=== PATIENT | male | born 1960 | race Caucasian/White ===

== ENCOUNTER 2017-11-26 22:19 | Emergency (ER) | payer OTHER ==
[~2017-11-26] VITALS: Ht 175.3 cm; Wt 97.5 kg
[~2017-11-26 22:19] MED LIST: ACET325; ALBU90OI INH; ALBU90OI6 INH; ALBU90OI61 INH; AMIT25 PO; AMIT50; AMLO5; ATOR40TA; AZIT250 PO; BECL40OI INH; Bactrim Ds Tab1 EACH PO; CEFP200 PO; CEPH500 PO; CIPR500 PO; DOXY100T53 PO; DULO30; DULO60 PO; ENAL20 PO; ERYT.5TO LEFTEYE; ESCI20 PO; FLUO20 PO; FLUSAL2505 IH; GABA100 PO; GUAI600ER PO; HYDACE5; HYDACE5 PO; HYDACE5325 PO; HYDACE7.5 PO; HYDR-86 PO; IBUP200; IBUP200 PO; IBUP800 PO; INSUASPI SC; INSULANI SC; INSULANPEN SC; LOVA20 PO; MAGCHL64ER; METF500 PO; METH10; METO25 PO; METO25ER; METO50; METO50ER; MULTCH; NAPR250; NAPR500 PO; NAPR550 PO; NITR.4SL SL; NORCO; NORT25 PO; OMEP20ER PO; OXYACE5T PO; OXYC10ER; PREG50; QUET100; QUET100 PO; QUET25 PO; RXHYDACE PO; RXNAPNA550 PO; RXOXYACE PO; RXTRAM50 PO; SILSUL1TC TOP; SODCITSO; SULTRIDS PO; TIOT18 IH; TIOT18 INH; TOPI50 PO; TRAM50 PO; TRAZ100; TRAZ100 PO; TRAZ50; TRAZ50 PO; ZOLP10 PO; [UNRECOGNIZED DRUG - OTHER] INH; [UNRECOGNIZED DRUG - OTHER] TOP; [UNRECOGNIZED DRUG - REMARK]
[2017-11-27 01:24] LABS: Source, Urine Clean Catch
[2017-11-27 01:26] LABS: Bilirubin, Urine Neg (Neg); Blood, Urine Neg (Neg); Glucose Qualitative, Urine Neg (Neg); Ketones, Urine Neg (Neg); Leukocyte Esterase, Urine 1+ (Neg); Nitrite, Urine Neg (Neg); Protein, Urine Neg (Neg); Urobilinogen, Urine NORM (Normal)
[2017-11-27 01:29] LABS: Appearance, Urine Clear (Clear); Color, Urine Yellow (P-Yellow)
[2017-11-27 01:37] LABS: Bacteria Not Seen /hpf; Red Blood Cells, Urine Not Seen /hpf (0-2); Squamous Epithelial Cells Not Seen /hpf (Few); White Blood Cells, Urine 0-2 /hpf (0-5)
[2018-10-20] MEDS ORDERED: TRIPLE ANTIBIOT28 GM TOP (17:25)
== END 2017-11-27 02:13 | disposition home or self-care (01) ==
LOC: ER 22:19
PROVIDERS: Emergency Medicine
DX: G89.29 Other chronic pain (principal); M54.5 Low back pain; I10 Essential (primary) hypertension; E11.9 Type 2 diabetes mellitus without complications; F17.200 Nicotine dependence, unspecified, uncomplicated; Z86.73 Personal history of transient ischemic attack (TIA), and cerebral infarction without residual deficits
CPT/HCPCS: 81001; 87086; 96372; 99283; J1885

== ENCOUNTER 2017-12-27 15:02 | Emergency (ER) | payer OTHER ==
[~2017-12-27] VITALS: Ht 180.3 cm; Wt 99.8 kg
[2017-12-27] MEDS ORDERED: METF500 PO (15:17)
[2017-12-27] MEDS ORDERED: ALBU90OI INH ×2 (15:17→17:24)
[2017-12-27 15:36] LABS: BASOPHILS ABSOLUTE AUTO 0.05 K/mm3 (0.00-0.23); BASOPHILS PERCENT AUTO 1 % (0-2); EOSINOPHILS ABSOLUTE AUTO 0.12 K/mm3 (0.00-0.68); EOSINOPHILS PERCENT AUTO 2 % (0-6); Hematocrit 47.2 % (37.0-53.0); Hemoglobin 15.5 g/dL (13.5-17.5); IMMATURE GRAN ABSOLUTE AUTO 0.03 K/mm3 (0.00-0.10); IMMATURE GRAN PERCENT AUTO 0 % (0-1); LYMPHOCYTES ABSOLUTE AUTO 2.31 K/mm3 (0.84-5.20); LYMPHOCYTES PERCENT AUTO 31 % (21-46); MONOCYTES ABSOLUTE AUTO 0.41 K/mm3 (0.16-1.47); MONOCYTES PERCENT AUTO 5 % (4-13); Mean Corpuscular HGB 28.7 pg (26.0-34.0); Mean Corpuscular HGB Conc 32.8 g/dL (31.5-36.5); Mean Corpuscular Volume 87 fL (80-100); Mean Platelet Volume 11.4 fL (9.1-12.4); NEUTROPHILS ABSOLUTE AUTO 4.63 K/mm3 (1.96-9.15); NEUTROPHILS PERCENT AUTO 61 % (41-73); Platelet Count 264 K/mm3 (150-400); RDW Coefficient Variation 12.8 % (11.7-14.2); RDW Standard Deviation 40.3 fL (35.1-46.3); Red Blood Cell Count 5.41 M/mm3 (4.30-5.90); White Blood Cell Count 7.55 K/mm3 (4.00-11.30)
[2017-12-27 15:55] LABS: Alanine Aminotransfer (ALT/SGP 19 U/L (12-78); Albumin, Blood 3.4 g/dL (3.4-5.0); Albumin/Globulin Ratio 0.8 (0.8-1.8); Alk Phos 121 U/L (50-136); Anion Gap 9 mmol/L (6-16); Aspartate Aminotrans (AST/SGOT 26 U/L (12-37); Bilirubin, Total 0.4 mg/dL (0.1-1.0); Blood Urea Nitrogen 22 mg/dL (8-24); Bun/Creatinine Ratio 17.6 (12.0-20.0); CO2, Blood 22 mmol/L (21-32); Calcium, Blood 8.6 mg/dL (8.5-10.1); Chloride, Blood 103 mmol/L (98-108); Creatinine, Blood 1.25 mg/dL (0.60-1.20); Globulin, Blood 4.4 g/dL (2.2-4.0); Glomerular Filtration Rate >60 (60-); Glucose, Blood 223 mg/dL (70-99); Potassium, Blood 5.9 mmol/L (3.5-5.5); Sodium, Blood 134 mmol/L (136-145); Total Protein, Blood 7.8 g/dL (6.4-8.2); Troponin I <0.015 ng/mL (0.000-0.040)
[2017-12-27 17:02] LABS: Influenza A Negative (NEGATIVE); Influenza B Negative (NEGATIVE)
[2017-12-27] MEDS ORDERED: Zithromax250 MG PO (17:24)
[2017-12-27] MEDS ORDERED: DEXT30SU PO (17:24)
[2018-10-20] MEDS ORDERED: TRIPLE ANTIBIOT28 GM TOP (17:25)
== END 2017-12-27 18:23 | disposition home or self-care (01) ==
LOC: ER 15:02
PROVIDERS: Physician Assistant
DX: J18.9 Pneumonia, unspecified organism (principal); I10 Essential (primary) hypertension; E11.9 Type 2 diabetes mellitus without complications; F17.210 Nicotine dependence, cigarettes, uncomplicated; Z79.84 Long term (current) use of oral hypoglycemic drugs; Z79.899 Other long term (current) drug therapy; Z86.73 Personal history of transient ischemic attack (TIA), and cerebral infarction without residual deficits
CPT/HCPCS: 36415; 71046; 80053; 83605; 84484; 85025; 87040; 87804; 93005; 93010; 94640; 96365; 96375; 99284; J0456; J0696; J7030; J7050

== ENCOUNTER 2018-03-17 01:34 | Observation (INO) | payer OTHER ==
[~2018-03-17] VITALS: Ht 175.3 cm; Wt 98.0 kg
[~2018-03-17 01:34] MED LIST changes: +DEXT30SU PO; +Zithromax250 MG PO
[2018-03-17] MEDS ORDERED: Humalog100 UNIT/1 (01:59)
[2018-03-17 02:11] LABS: BASOPHILS ABSOLUTE AUTO 0.05 K/mm3 (0.00-0.23); BASOPHILS PERCENT AUTO 0 % (0-2); EOSINOPHILS ABSOLUTE AUTO 0.17 K/mm3 (0.00-0.68); EOSINOPHILS PERCENT AUTO 2 % (0-6); Hematocrit 45.3 % (37.0-53.0); Hemoglobin 15.4 g/dL (13.5-17.5); IMMATURE GRAN ABSOLUTE AUTO 0.03 K/mm3 (0.00-0.10); IMMATURE GRAN PERCENT AUTO 0 % (0-1); LYMPHOCYTES ABSOLUTE AUTO 2.95 K/mm3 (0.84-5.20); LYMPHOCYTES PERCENT AUTO 26 % (21-46); MONOCYTES PERCENT AUTO 10 % (4-13); Mean Corpuscular HGB 30.1 pg (26.0-34.0); Mean Corpuscular Volume 89 fL (80-100); Mean Platelet Volume 10.5 fL (9.1-12.4); NEUTROPHILS ABSOLUTE AUTO 7.11 K/mm3 (1.96-9.15); NEUTROPHILS PERCENT AUTO 62 % (41-73); Platelet Count 216 K/mm3 (150-400); RDW Coefficient Variation 13.6 % (11.7-14.2); Red Blood Cell Count 5.12 M/mm3 (4.30-5.90); White Blood Cell Count 11.51 K/mm3 (4.00-11.30)
[2018-03-17 02:30] LABS: Alanine Aminotransfer (ALT/SGP 20 U/L (12-78); Albumin, Blood 3.9 g/dL (3.4-5.0); Alk Phos 117 U/L (50-136); Anion Gap 10 mmol/L (6-16); Aspartate Aminotrans (AST/SGOT 21 U/L (12-37); Bilirubin, Total 0.3 mg/dL (0.1-1.0); Blood Urea Nitrogen 33 mg/dL (8-24); Bun/Creatinine Ratio 19.9 (12.0-20.0); CO2, Blood 18 mmol/L (21-32); Calcium, Blood 8.6 mg/dL (8.5-10.1); Chloride, Blood 107 mmol/L (98-108); Creatinine, Blood 1.66 mg/dL (0.60-1.20); Globulin, Blood 3.8 g/dL (2.2-4.0); Glomerular Filtration Rate 46 (60-); Glucose, Blood 154 mg/dL (70-99); Potassium, Blood 3.9 mmol/L (3.5-5.5); Sodium, Blood 135 mmol/L (136-145); Total Protein, Blood 7.7 g/dL (6.4-8.2); Troponin I <0.015 ng/mL (0.000-0.040)
[2018-03-17 03:25] LABS: PCO2 Arterial 34.5 mmHg (35-45); PO2 Arterial 65.7 mmHg (80-100); pH Blood Arterial 7.36 (7.35-7.45)
[2018-03-17] MEDS ORDERED: INSULANPEN SC (05:25)
[2018-03-17 14:42] LABS: BASOPHILS ABSOLUTE AUTO 0.04 K/mm3 (0.00-0.23); BASOPHILS PERCENT AUTO 1 % (0-2); EOSINOPHILS ABSOLUTE AUTO 0.17 K/mm3 (0.00-0.68); EOSINOPHILS PERCENT AUTO 3 % (0-6); Hematocrit 43.1 % (37.0-53.0); Hemoglobin 15.1 g/dL (13.5-17.5); IMMATURE GRAN ABSOLUTE AUTO 0.01 K/mm3 (0.00-0.10); IMMATURE GRAN PERCENT AUTO 0 % (0-1); LYMPHOCYTES ABSOLUTE AUTO 2.07 K/mm3 (0.84-5.20); LYMPHOCYTES PERCENT AUTO 35 % (21-46); MONOCYTES ABSOLUTE AUTO 0.73 K/mm3 (0.16-1.47); MONOCYTES PERCENT AUTO 12 % (4-13); Mean Corpuscular HGB 30.9 pg (26.0-34.0); Mean Corpuscular Volume 88 fL (80-100); Mean Platelet Volume 10.5 fL (9.1-12.4); NEUTROPHILS ABSOLUTE AUTO 2.94 K/mm3 (1.96-9.15); NEUTROPHILS PERCENT AUTO 49 % (41-73); Platelet Count 208 K/mm3 (150-400); RDW Coefficient Variation 13.8 % (11.7-14.2); RDW Standard Deviation 44.5 fL (35.1-46.3); Red Blood Cell Count 4.89 M/mm3 (4.30-5.90); White Blood Cell Count 5.96 K/mm3 (4.00-11.30)
[2018-03-17 15:13] LABS: Alanine Aminotransfer (ALT/SGP 19 U/L (12-78); Albumin, Blood 3.3 g/dL (3.4-5.0); Albumin/Globulin Ratio 0.9 (0.8-1.8); Alk Phos 110 U/L (50-136); Anion Gap 6 mmol/L (6-16); Aspartate Aminotrans (AST/SGOT 12 U/L (12-37); Bilirubin, Total 0.3 mg/dL (0.1-1.0); Blood Urea Nitrogen 24 mg/dL (8-24); Bun/Creatinine Ratio 19.2 (12.0-20.0); CO2, Blood 24 mmol/L (21-32); Calcium, Blood 8.7 mg/dL (8.5-10.1); Chloride, Blood 111 mmol/L (98-108); Creatinine, Blood 1.25 mg/dL (0.60-1.20); Globulin, Blood 3.6 g/dL (2.2-4.0); Glomerular Filtration Rate >60 (60-); Glucose, Blood 144 mg/dL (70-99); Potassium, Blood 4.8 mmol/L (3.5-5.5); Sodium, Blood 141 mmol/L (136-145); Total Protein, Blood 6.9 g/dL (6.4-8.2)
[2018-03-18 04:38] LABS: Albumin, Blood 3.2 g/dL (3.4-5.0); Anion Gap 10 mmol/L (6-16); Blood Urea Nitrogen 25 mg/dL (8-24); Bun/Creatinine Ratio 22.3 (12.0-20.0); CO2, Blood 22 mmol/L (21-32); Calcium, Blood 8.9 mg/dL (8.5-10.1); Chloride, Blood 110 mmol/L (98-108); Creatinine, Blood 1.12 mg/dL (0.60-1.20); Glomerular Filtration Rate >60 (60-); Glucose, Blood 154 mg/dL (70-99); Phosphorus, Blood 3.2 mg/dL (2.5-4.9); Potassium, Blood 4.6 mmol/L (3.5-5.5); Sodium, Blood 142 mmol/L (136-145)
[2018-03-18 04:47] LABS: Influenza A Negative (NEGATIVE); Influenza B Negative (NEGATIVE)
[2018-03-18] MEDS ORDERED: NICO21TP TOP (14:21)
[2018-03-18] MEDS ORDERED: LEVO750 PO (14:23)
[2018-03-18] MEDS ORDERED: ALBU90OI6 INH (14:23)
== END 2018-03-18 16:29 | disposition home or self-care (01) ==
LOC: ER 01:34 → MEDS 01:35 → ER 04:26 → MEDS 05:15 → ENPENDDIS 03-18 13:23 → MEDS 03-18 16:29
PROVIDERS: Emergency Medicine; Family Medicine; Internal Medicine
DX: R55 Syncope and collapse (principal); N17.9 Acute kidney failure, unspecified; E86.0 Dehydration; E11.22 Type 2 diabetes mellitus with diabetic chronic kidney disease; I12.9 Hypertensive chronic kidney disease with stage 1 through stage 4 chronic kidney disease, or unspecified chronic kidney disease; N18.2 Chronic kidney disease, stage 2 (mild); J44.9 Chronic obstructive pulmonary disease, unspecified; I95.1 Orthostatic hypotension; F17.210 Nicotine dependence, cigarettes, uncomplicated; Z86.73 Personal history of transient ischemic attack (TIA), and cerebral infarction without residual deficits
CPT/HCPCS: 36415; 36600; 71046; 80053; 80069; 82803; 82947; 83880; 84484; 85025; 87804; 93005; 93010; 94640; 94760; 96360; 99285; G0378; J1650; J1956; J7030

== ENCOUNTER 2018-11-10 15:22 | Observation (INO) | payer OTHER ==
[~2018-11-10] VITALS: Ht 177.8 cm; Wt 105.2 kg
[~2018-11-10 15:22] MED LIST changes: +Humalog100 UNIT/1; +LEVO750 PO; +NICO21TP TOP; +TRIPLE ANTIBIOT28 GM TOP
[2018-11-10] MEDS ORDERED: Metformin HCl1000 MG PO (15:36)
[2018-11-10 16:04] LABS: BASOPHILS ABSOLUTE AUTO 0.06 K/mm3 (0.00-0.23); BASOPHILS PERCENT AUTO 1 % (0-2); EOSINOPHILS ABSOLUTE AUTO 0.19 K/mm3 (0.00-0.68); EOSINOPHILS PERCENT AUTO 2 % (0-6); Hematocrit 42.1 % (37.0-53.0); Hemoglobin 13.8 g/dL (13.5-17.5); IMMATURE GRAN ABSOLUTE AUTO 0.04 K/mm3 (0.00-0.10); IMMATURE GRAN PERCENT AUTO 0 % (0-1); LYMPHOCYTES ABSOLUTE AUTO 1.97 K/mm3 (0.84-5.20); LYMPHOCYTES PERCENT AUTO 18 % (21-46); MONOCYTES ABSOLUTE AUTO 0.99 K/mm3 (0.16-1.47); MONOCYTES PERCENT AUTO 9 % (4-13); Mean Corpuscular HGB 28.1 pg (26.0-34.0); Mean Corpuscular HGB Conc 32.8 g/dL (31.5-36.5); Mean Corpuscular Volume 86 fL (80-100); Mean Platelet Volume 10.1 fL (9.1-12.4); NEUTROPHILS ABSOLUTE AUTO 7.78 K/mm3 (1.96-9.15); NEUTROPHILS PERCENT AUTO 71 % (41-73); Platelet Count 275 K/mm3 (150-400); RDW Coefficient Variation 12.7 % (11.7-14.2); RDW Standard Deviation 39.6 fL (35.1-46.3); Red Blood Cell Count 4.91 M/mm3 (4.30-5.90); White Blood Cell Count 11.03 K/mm3 (4.00-11.30)
[2018-11-10 16:26] LABS: Alanine Aminotransfer (ALT/SGP 24 U/L (12-78); Albumin, Blood 3.2 g/dL (3.4-5.0); Albumin/Globulin Ratio 0.7 (0.8-1.8); Alk Phos 150 U/L (50-136); Anion Gap 4 mmol/L (6-16); Aspartate Aminotrans (AST/SGOT 14 U/L (12-37); Bilirubin, Total 0.3 mg/dL (0.1-1.0); Blood Urea Nitrogen 23 mg/dL (8-24); Bun/Creatinine Ratio 21.9 (12.0-20.0); CO2, Blood 28 mmol/L (21-32); Chloride, Blood 103 mmol/L (98-108); Creatinine, Blood 1.05 mg/dL (0.60-1.20); Globulin, Blood 4.9 g/dL (2.2-4.0); Glomerular Filtration Rate >60 (60-); Glucose, Blood 167 mg/dL (70-99); Potassium, Blood 4.5 mmol/L (3.5-5.5); Sodium, Blood 135 mmol/L (136-145); Total Protein, Blood 8.1 g/dL (6.4-8.2)
[2018-11-11 05:06] LABS: BASOPHILS ABSOLUTE AUTO 0.06 K/mm3 (0.00-0.23); BASOPHILS PERCENT AUTO 1 % (0-2); EOSINOPHILS ABSOLUTE AUTO 0.27 K/mm3 (0.00-0.68); EOSINOPHILS PERCENT AUTO 4 % (0-6); IMMATURE GRAN ABSOLUTE AUTO 0.01 K/mm3 (0.00-0.10); IMMATURE GRAN PERCENT AUTO 0 % (0-1); LYMPHOCYTES ABSOLUTE AUTO 2.97 K/mm3 (0.84-5.20); LYMPHOCYTES PERCENT AUTO 39 % (21-46); MONOCYTES ABSOLUTE AUTO 0.66 K/mm3 (0.16-1.47); MONOCYTES PERCENT AUTO 9 % (4-13); Mean Corpuscular HGB 28.3 pg (26.0-34.0); Mean Corpuscular HGB Conc 32.4 g/dL (31.5-36.5); Mean Corpuscular Volume 87 fL (80-100); NEUTROPHILS ABSOLUTE AUTO 3.69 K/mm3 (1.96-9.15); NEUTROPHILS PERCENT AUTO 48 % (41-73); Platelet Count 226 K/mm3 (150-400); RDW Coefficient Variation 12.9 % (11.7-14.2); RDW Standard Deviation 40.9 fL (35.1-46.3); Red Blood Cell Count 4.24 M/mm3 (4.30-5.90); White Blood Cell Count 7.66 K/mm3 (4.00-11.30)
[2018-11-11 05:26] LABS: Alanine Aminotransfer (ALT/SGP 20 U/L (12-78); Albumin, Blood 2.2 g/dL (3.4-5.0); Albumin/Globulin Ratio 0.5 (0.8-1.8); Alk Phos 115 U/L (50-136); Anion Gap 7 mmol/L (6-16); Aspartate Aminotrans (AST/SGOT 15 U/L (12-37); Bilirubin, Total 0.2 mg/dL (0.1-1.0); Blood Urea Nitrogen 27 mg/dL (8-24); Bun/Creatinine Ratio 22.1 (12.0-20.0); CO2, Blood 25 mmol/L (21-32); Calcium, Blood 7.8 mg/dL (8.5-10.1); Chloride, Blood 107 mmol/L (98-108); Creatinine, Blood 1.22 mg/dL (0.60-1.20); Globulin, Blood 4.1 g/dL (2.2-4.0); Glomerular Filtration Rate >60 (60-); Glucose, Blood 214 mg/dL (70-99); Potassium, Blood 4.6 mmol/L (3.5-5.5); Sodium, Blood 139 mmol/L (136-145); Total Protein, Blood 6.3 g/dL (6.4-8.2)
[2018-11-13] MEDS ORDERED: CEPH500 PO (10:51)
== END 2018-11-13 14:56 | disposition home or self-care (01) ==
LOC: ER 15:22 → MEDS 15:23 → ENPENDDIS 11-13 10:00 → MEDS 11-13 14:56
PROVIDERS: Emergency Medicine; Hospitalist
DX: L03.116 Cellulitis of left lower limb (principal); E11.22 Type 2 diabetes mellitus with diabetic chronic kidney disease; I12.9 Hypertensive chronic kidney disease with stage 1 through stage 4 chronic kidney disease, or unspecified chronic kidney disease; N18.2 Chronic kidney disease, stage 2 (mild); F15.10 Other stimulant abuse, uncomplicated; E66.9 Obesity, unspecified; E78.5 Hyperlipidemia, unspecified; I25.10 Atherosclerotic heart disease of native coronary artery without angina pectoris; F17.210 Nicotine dependence, cigarettes, uncomplicated; J44.9 Chronic obstructive pulmonary disease, unspecified; Z86.73 Personal history of transient ischemic attack (TIA), and cerebral infarction without residual deficits; Z59.0 Homelessness; Z68.33 Body mass index [BMI] 33.0-33.9, adult
CPT/HCPCS: 36415; 73620; 80053; 82947; 83605; 85025; 85651; 86141; 96365; 96368; 97110; 97161; 97165; 99284-25; G8978; G8979; G8980; G8987; G8988; G8989; J0690; J0696; J1885; J3370; J7030; J7050

== ENCOUNTER → 2018-11-21 | Outpatient (CLI) | payer OTHER ==
[~2018-11-21] MED LIST changes: +Metformin HCl1000 MG PO
== END ==
LOC: LAB SHORT 14:55 → LAB 14:55
DX: L08.9 Local infection of the skin and subcutaneous tissue, unspecified (principal)
CPT/HCPCS: 87070; 87075; 87077; 87147; 87186

== ENCOUNTER 2018-12-13 00:13 | Day surgery (SDC) | payer OTHER | END 2018-12-13 23:03 | disposition home or self-care (01) | LOC: WOUND | DX: L89.322 Pressure ulcer of left buttock, stage 2 (principal); L97.529 Non-pressure chronic ulcer of other part of left foot with unspecified severity; L97.829 Non-pressure chronic ulcer of other part of left lower leg with unspecified severity; E11.9 Type 2 diabetes mellitus without complications; Z79.4 Long term (current) use of insulin; F17.200 Nicotine dependence, unspecified, uncomplicated; Z59.0 Homelessness | CPT/HCPCS: G0463 ==

== ENCOUNTER 2018-12-22 15:25 | Day surgery (SDC) | payer OTHER | END 2018-12-22 23:21 | disposition home or self-care (01) | LOC: WOUND 15:25 | DX: L89.322 Pressure ulcer of left buttock, stage 2 (principal); L97.522 Non-pressure chronic ulcer of other part of left foot with fat layer exposed; L97.822 Non-pressure chronic ulcer of other part of left lower leg with fat layer exposed; Z59.0 Homelessness; E11.621 Type 2 diabetes mellitus with foot ulcer; E11.42 Type 2 diabetes mellitus with diabetic polyneuropathy | CPT/HCPCS: G0463 ==

== ENCOUNTER → 2019-01-12 | Outpatient (CLI) | payer OTHER | LOC: LAB SHORT 12:52 → LAB 12:52 | DX: L08.9 Local infection of the skin and subcutaneous tissue, unspecified (principal) | CPT/HCPCS: 87070; 87075; 87077; 87147; 87186; 87205 ==

== ENCOUNTER → 2019-02-22 | Outpatient (CLI) | payer OTHER ==
[~2019-02-22] MED LIST changes: +Cleocin HCl300 MG PO; +GABA100
== END ==
LOC: LAB SHORT 16:15 → LAB 16:15
DX: L08.9 Local infection of the skin and subcutaneous tissue, unspecified (principal)
CPT/HCPCS: 87070; 87075; 87077; 87147; 87186; 87205

== ENCOUNTER 2019-02-23 15:32 | Emergency (ER) | payer OTHER ==
[~2019-02-23] VITALS: Ht 175.3 cm; Wt 104.3 kg
[~2019-02-23 15:32] MED LIST changes: -Cleocin HCl300 MG PO; -GABA100
[2019-02-23] MEDS ORDERED: GABA100 (15:41)
[2019-02-23 17:02] LABS: BASOPHILS ABSOLUTE AUTO 0.04 K/mm3 (0.00-0.23); BASOPHILS PERCENT AUTO 0 % (0-2); EOSINOPHILS ABSOLUTE AUTO 0.12 K/mm3 (0.00-0.68); EOSINOPHILS PERCENT AUTO 1 % (0-6); IMMATURE GRAN ABSOLUTE AUTO 0.02 K/mm3 (0.00-0.10); IMMATURE GRAN PERCENT AUTO 0 % (0-1); LYMPHOCYTES ABSOLUTE AUTO 2.22 K/mm3 (0.84-5.20); LYMPHOCYTES PERCENT AUTO 24 % (21-46); MONOCYTES ABSOLUTE AUTO 0.94 K/mm3 (0.16-1.47); MONOCYTES PERCENT AUTO 10 % (4-13); Mean Corpuscular HGB 28.2 pg (26.0-34.0); Mean Corpuscular HGB Conc 32.6 g/dL (31.5-36.5); Mean Corpuscular Volume 87 fL (80-100); NEUTROPHILS ABSOLUTE AUTO 6.07 K/mm3 (1.96-9.15); NEUTROPHILS PERCENT AUTO 65 % (41-73); Platelet Count 221 K/mm3 (150-400); RDW Coefficient Variation 13.8 % (11.7-14.2); RDW Standard Deviation 44.2 fL (35.1-46.3); Red Blood Cell Count 4.96 M/mm3 (4.30-5.90); White Blood Cell Count 9.41 K/mm3 (4.00-11.30)
[2019-02-23 17:13] LABS: Anion Gap 6 mmol/L (6-16); Blood Urea Nitrogen 41 mg/dL (8-24); CO2, Blood 24 mmol/L (21-32); Calcium, Blood 8.5 mg/dL (8.5-10.1); Chloride, Blood 103 mmol/L (98-108); Creatinine, Blood 1.17 mg/dL (0.60-1.20); Glomerular Filtration Rate >60 (60-); Glucose, Blood 221 mg/dL (70-99); Potassium, Blood 4.4 mmol/L (3.5-5.5); Sodium, Blood 133 mmol/L (136-145)
[2019-02-23] MEDS ORDERED: Cleocin HCl300 MG PO (17:24)
== END 2019-02-23 17:59 | disposition home or self-care (01) ==
LOC: ER 15:32
PROVIDERS: Physician Assistant
DX: E11.621 Type 2 diabetes mellitus with foot ulcer (principal); F15.10 Other stimulant abuse, uncomplicated; A49.02 Methicillin resistant Staphylococcus aureus infection, unspecified site; Z79.84 Long term (current) use of oral hypoglycemic drugs; Z79.899 Other long term (current) drug therapy; I10 Essential (primary) hypertension; F17.210 Nicotine dependence, cigarettes, uncomplicated
CPT/HCPCS: 36415; 80048; 85025; 96365; 99283-25; J7030

== ENCOUNTER 2019-03-10 23:20 | Emergency (ER) | payer OTHER ==
[~2019-03-10] VITALS: Ht 175.3 cm; Wt 104.3 kg
[~2019-03-10 23:20] MED LIST changes: +Cleocin HCl300 MG PO; +GABA100
== END 2019-03-11 01:24 | disposition home or self-care (01) ==
LOC: ER 23:20
DX: E11.621 Type 2 diabetes mellitus with foot ulcer (principal); L97.529 Non-pressure chronic ulcer of other part of left foot with unspecified severity; F15.10 Other stimulant abuse, uncomplicated; I10 Essential (primary) hypertension; F17.210 Nicotine dependence, cigarettes, uncomplicated
CPT/HCPCS: 99282

== ENCOUNTER 2019-04-06 22:54 | Emergency (ER) | payer OTHER ==
[~2019-04-06] VITALS: Ht 175.3 cm; Wt 104.3 kg
== END 2019-04-07 02:06 | disposition home or self-care (01) ==
LOC: ER 22:54
DX: S40.012A Contusion of left shoulder, initial encounter (principal); S80.02XA Contusion of left knee, initial encounter; S60.212A Contusion of left wrist, initial encounter; I10 Essential (primary) hypertension; E11.9 Type 2 diabetes mellitus without complications; F17.210 Nicotine dependence, cigarettes, uncomplicated; Z86.73 Personal history of transient ischemic attack (TIA), and cerebral infarction without residual deficits; W19.XXXA Unspecified fall, initial encounter
CPT/HCPCS: 73030; 73110; 73564; 99283-25

== ENCOUNTER 2019-05-02 05:10 | Emergency (ER) | payer OTHER ==
[~2019-05-02] VITALS: Ht 177.8 cm; Wt 104.3 kg
[2019-05-02] MEDS ORDERED: Keflex500 MG PO (08:58)
== END 2019-05-02 09:14 | disposition home or self-care (01) ==
LOC: ER 05:10
DX: S62.612A Displaced fracture of proximal phalanx of right middle finger, initial encounter for closed fracture (principal); S61.212A Laceration without foreign body of right middle finger without damage to nail, initial encounter; S00.81XA Abrasion of other part of head, initial encounter; E11.22 Type 2 diabetes mellitus with diabetic chronic kidney disease; I12.9 Hypertensive chronic kidney disease with stage 1 through stage 4 chronic kidney disease, or unspecified chronic kidney disease; N18.9 Chronic kidney disease, unspecified; Z86.73 Personal history of transient ischemic attack (TIA), and cerebral infarction without residual deficits; F17.210 Nicotine dependence, cigarettes, uncomplicated; X58.XXXA Exposure to other specified factors, initial encounter
CPT/HCPCS: 12001; 26755; 70450; 73140; 90471; 90714; 96365-59; 99284-25; J3370

== ENCOUNTER 2019-05-21 19:20 | Emergency (ER) | payer OTHER ==
[~2019-05-21] VITALS: Ht 180.3 cm; Wt 117.9 kg
[~2019-05-21 19:20] MED LIST changes: +Keflex500 MG PO
[2019-05-21] MEDS ORDERED: Bactrim Ds Tab1 EACH PO (19:40)
[2019-05-21] MEDS ORDERED: CEPH500 PO (19:40)
== END 2019-05-21 19:56 | disposition home or self-care (01) ==
LOC: ER 19:20
DX: S90.822A Blister (nonthermal), left foot, initial encounter (principal); L03.116 Cellulitis of left lower limb; X58.XXXA Exposure to other specified factors, initial encounter; I12.9 Hypertensive chronic kidney disease with stage 1 through stage 4 chronic kidney disease, or unspecified chronic kidney disease; E11.22 Type 2 diabetes mellitus with diabetic chronic kidney disease; N18.6 End stage renal disease; F17.210 Nicotine dependence, cigarettes, uncomplicated
CPT/HCPCS: 99283

== ENCOUNTER 2019-06-02 15:23 | Inpatient (IN) | payer OTHER ==
[~2019-06-02] VITALS: Ht 180.3 cm; Wt 102.1 kg
[2019-06-02 15:57] LABS: BASOPHILS ABSOLUTE AUTO 0.04 K/mm3 (0.00-0.23); BASOPHILS PERCENT AUTO 0 % (0-2); EOSINOPHILS PERCENT AUTO 1 % (0-6); Hematocrit 35.4 % (37.0-53.0); Hemoglobin 11.3 g/dL (13.5-17.5); IMMATURE GRAN ABSOLUTE AUTO 0.03 K/mm3 (0.00-0.10); IMMATURE GRAN PERCENT AUTO 0 % (0-1); LYMPHOCYTES ABSOLUTE AUTO 1.55 K/mm3 (0.84-5.20); LYMPHOCYTES PERCENT AUTO 14 % (21-46); MONOCYTES ABSOLUTE AUTO 0.97 K/mm3 (0.16-1.47); MONOCYTES PERCENT AUTO 9 % (4-13); Mean Corpuscular HGB Conc 31.9 g/dL (31.5-36.5); Mean Corpuscular Volume 91 fL (80-100); Mean Platelet Volume 9.6 fL (9.1-12.4); NEUTROPHILS ABSOLUTE AUTO 8.26 K/mm3 (1.96-9.15); NEUTROPHILS PERCENT AUTO 75 % (41-73); Platelet Count 305 K/mm3 (150-400); RDW Coefficient Variation 12.6 % (11.7-14.2); RDW Standard Deviation 41.6 fL (35.1-46.3); White Blood Cell Count 10.95 K/mm3 (4.00-11.30)
[2019-06-02 16:06] LABS: Alanine Aminotransfer (ALT/SGP 18 U/L (12-78); Albumin, Blood 2.9 g/dL (3.4-5.0); Albumin/Globulin Ratio 0.6 (0.8-1.8); Alk Phos 114 U/L (50-136); Anion Gap 6 mmol/L (6-16); Aspartate Aminotrans (AST/SGOT 14 U/L (12-37); Bilirubin, Total 0.2 mg/dL (0.1-1.0); Blood Urea Nitrogen 13 mg/dL (8-24); Bun/Creatinine Ratio 12.5 (12.0-20.0); CO2, Blood 24 mmol/L (21-32); Calcium, Blood 8.8 mg/dL (8.5-10.1); Chloride, Blood 102 mmol/L (98-108); Creatinine, Blood 1.04 mg/dL (0.60-1.20); Globulin, Blood 4.8 g/dL (2.2-4.0); Glomerular Filtration Rate >60 (60-); Glucose, Blood 209 mg/dL (70-99); Potassium, Blood 4.2 mmol/L (3.5-5.5); Sodium, Blood 132 mmol/L (136-145); Total Protein, Blood 7.7 g/dL (6.4-8.2)
[2019-06-02] MEDS ORDERED: Silvadene20 GM TOP (16:35)
[2019-06-02] MEDS ORDERED: NAPR500EC PO (16:35)
[2019-06-02] MEDS ORDERED: MELO7.5 (16:35)
[2019-06-02] MEDS ORDERED: ALBU90OI61 INH (16:36)
[2019-06-02] MEDS ORDERED: METF500 PO (16:36)
[2019-06-02] MEDS ORDERED: PIOG15 PO (16:36)
--- NOTE | 2019-06-02 21:05 | NUR ---
rt AC IV present on admission from ER field start from EMS. IV patent infusing
[2019-06-02 21:11] LABS: Source, Urine Clean Catch
[2019-06-02 21:16] LABS: Bilirubin, Urine Neg (Neg); Blood, Urine Neg (Neg); Glucose Qualitative, Urine 3+ (Neg); Ketones, Urine Neg (Neg); Leukocyte Esterase, Urine Neg (Neg); Nitrite, Urine Neg (Neg); Protein, Urine 2+ (Neg); Specific Gravity, Urine 1.015 (1.003-1.022); Urobilinogen, Urine NORM (Normal)
[2019-06-02 21:28] LABS: Appearance, Urine Clear (Clear); Color, Urine Yellow (P-Yellow)
[2019-06-02 21:29] LABS: Bacteria Not Seen /hpf; Red Blood Cells, Urine Not Seen /hpf (0-2); Squamous Epithelial Cells Not Seen /hpf (Few); White Blood Cells, Urine Not Seen /hpf (0-5)
[2019-06-03 04:44] LABS: BASOPHILS ABSOLUTE AUTO 0.05 K/mm3 (0.00-0.23); BASOPHILS PERCENT AUTO 1 % (0-2); EOSINOPHILS ABSOLUTE AUTO 0.22 K/mm3 (0.00-0.68); EOSINOPHILS PERCENT AUTO 3 % (0-6); Hematocrit 33.7 % (37.0-53.0); IMMATURE GRAN ABSOLUTE AUTO 0.01 K/mm3 (0.00-0.10); IMMATURE GRAN PERCENT AUTO 0 % (0-1); LYMPHOCYTES ABSOLUTE AUTO 2.46 K/mm3 (0.84-5.20); LYMPHOCYTES PERCENT AUTO 32 % (21-46); MONOCYTES PERCENT AUTO 11 % (4-13); Mean Corpuscular HGB 29.4 pg (26.0-34.0); Mean Corpuscular HGB Conc 32.6 g/dL (31.5-36.5); Mean Corpuscular Volume 90 fL (80-100); Mean Platelet Volume 9.9 fL (9.1-12.4); NEUTROPHILS ABSOLUTE AUTO 4.06 K/mm3 (1.96-9.15); NEUTROPHILS PERCENT AUTO 53 % (41-73); Platelet Count 285 K/mm3 (150-400); RDW Coefficient Variation 12.4 % (11.7-14.2); RDW Standard Deviation 40.8 fL (35.1-46.3); Red Blood Cell Count 3.74 M/mm3 (4.30-5.90)
[2019-06-03 05:01] LABS: Anion Gap 6 mmol/L (6-16); Blood Urea Nitrogen 17 mg/dL (8-24); Bun/Creatinine Ratio 17.8 (12.0-20.0); CO2, Blood 26 mmol/L (21-32); Calcium, Blood 8.1 mg/dL (8.5-10.1); Chloride, Blood 105 mmol/L (98-108); Creatinine, Blood 0.96 mg/dL (0.60-1.20); Glomerular Filtration Rate >60 (60-); Glucose, Blood 235 mg/dL (70-99); Potassium, Blood 3.9 mmol/L (3.5-5.5); Sodium, Blood 137 mmol/L (136-145)
--- NOTE | 2019-06-03 06:46 | NUR ---
DR CHENEY updated on PT request for DNR status, code status updated.
--- NOTE | 2019-06-03 17:47 | NUR ---
SHIFT SUMMARY: NO ACUTE CHANGES TO REPORT THIS SHIFT. PT A&O; CALM AND COOPERATIVE WITH CARE. MEDICATED FOR PAIN PER EMAR. PODIATRY & ORTHO CONSULTS THIS SHIFT; SURGERY EXPECTED IN AM 06/04; PT NPO AFTER DINNER.IV ABX CONTINUING; LR CONTINUING. WCTM.
[2019-06-04 06:59] LABS: Vancomycin, Trough 18.3 ug/mL (5.0-10.0)
--- NOTE | 2019-06-04 08:39 | NUR ---
06/04/19 0839 Tessy Sanchez LIDOCAINE 1% 10CC INJECTED INTO SURGICAL SITE BY DR. JONES. MIXED WITH MARCAINE.
--- NOTE | 2019-06-04 18:22 | NUR ---
SHIFT SUMMARY: PATIENT A&O; CALM AND COOEPRATIVE WITH CARE. SURGERY THIS SHIFT; L FOOT METATARSALS AMPUTATED-SEE OPERATIVE NOTES; PT TOLERATED WELL; MEDICATED FOR POST-OP PAIN PER EMAR; POST-OP VSS. AWAITING ORTHO CONSULT ON R HAND FINGER FX. PT EVAL & TREAT; PT NWB ON L FOOT. IV ABX CONTINUING. WCTM.
--- NOTE | 2019-06-04 18:58 | NUR ---
pt resting comfortable pending further surgical consult. needs placement
--- NOTE | 2019-06-05 03:13 | NUR ---
PT had several metatarsals amputated yesterday AM and tolerated well,. Post op dress clean dry intact. Pain of 8 postop lt foot about the same as prior to surgery. He is tolerating diet and is on room air. VSS.
[2019-06-05 07:55] LABS: Vancomycin, Trough 21.3 ug/mL (5.0-10.0)
[2019-06-05 08:36] LABS: Hematocrit 33.1 % (37.0-53.0); Hemoglobin 10.6 g/dL (13.5-17.5); Mean Corpuscular HGB 29.2 pg (26.0-34.0); Mean Corpuscular Volume 91 fL (80-100); Platelet Count 302 K/mm3 (150-400); RDW Coefficient Variation 12.3 % (11.7-14.2); RDW Standard Deviation 41.1 fL (35.1-46.3); Red Blood Cell Count 3.63 M/mm3 (4.30-5.90); White Blood Cell Count 9.53 K/mm3 (4.00-11.30)
[2019-06-05 08:45] LABS: Anion Gap 7 mmol/L (6-16); Blood Urea Nitrogen 19 mg/dL (8-24); Bun/Creatinine Ratio 16.2 (12.0-20.0); CO2, Blood 25 mmol/L (21-32); Calcium, Blood 8.1 mg/dL (8.5-10.1); Chloride, Blood 104 mmol/L (98-108); Creatinine, Blood 1.17 mg/dL (0.60-1.20); Glomerular Filtration Rate >60 (60-); Glucose, Blood 177 mg/dL (70-99); Potassium, Blood 4.2 mmol/L (3.5-5.5); Sodium, Blood 136 mmol/L (136-145)
--- NOTE | 2019-06-05 11:34 | NUR ---
ORTHO CONSULT: SPOKE WITH ON-CALL DR. ROMERO FOR ORTHO CONSULT. HE REPORTS THAT HE WILL SEE THIS PATIENT AN OUTPATIENT BUT NOT AN INPATIENT DUE TO THE LACK OF ACUITY AND FINANCIAL SAVING TO THE PATIENT.
--- NOTE | 2019-06-05 14:33 | NUR ---
ORTHO CONSULTATION: NOTIFIED DR. CAO THAT ORTHO REQUESTED TO SEE THE PATIENT AN OUTPATIENT. NO NEW ORDERS AT THIS TIME.
--- NOTE | 2019-06-05 18:39 | NUR ---
SHIFT SUMMARY: PATIENT REPORTED PAIN THROUGHOUT THE DAY IN LOWER LEFT FOOT. MEDICATED PER PRNS. ELEVATED LEFT EXTREMITY. PATIENT CALM AND COOPERATIVE. PATIENT HAS A GOOD APPETITE. PATIENT REPORTS THAT HE UNDERSTANDS THAT HE WILL BE UNCOMFORTABLE DURING THE HEALING PROCESS AND WANTS TO DO WHAT IT TAKES TO HELP HIMSELF BE HEALTHIER. PATIENT IS AGREEABLE TO DISCHARGE TO A SNF IF POSSIBLE. DR. JONES ROUNDED ON PATIENT THIS AFTERNOON. NO WOUND CARE ORDERS AT THIS TIME.
--- NOTE | 2019-06-06 04:02 | NUR ---
SHIFT SUMMARY- PT. POD #2 FOR LT FOOT TRANSMETATARSEL AMPUTATION. COOPERATIVE WITH CARE, PAIN WELL MANAGED WITH CURRENT PAIN MEDICATION. DRESSING C/D/I. PT. RESTING COMFORTABLY IN BED, NO APPARENT DISTRESS NOTED. NEW IV PLACED IN THE LT FA, REMAINS ON IV ABX'S, TOLERTING THEM WELL.
--- NOTE | 2019-06-06 18:45 | NUR ---
NO ACUTE CHANGES NOTED. DRESSING TO FOOT IS CLEAN DRY AND INTACT. PAIN IS WELL MANAGED WITH PRN MEDICATION. NO CURRENT COMPLAINTS OF PAIN OR DISCOMFORT NOTED. WILL CONTINUE TO MONITOR FOR CHANGES.
--- NOTE | 2019-06-07 03:03 | NUR ---
SHIFT SUMMARY- PT. SLEPT WELL T/O THE NIGHT. LT FOOT DRESSING C/D/I. C/O PAIN X1 T/O SHIFT, MEDICATED PER EMAR. PLACED ON PO ABX. ORTHO TO F/U REGARDING FINGER FX. DENIES ANY NEEDS AT THIS TIME. CALL LIGHT WITHIN REACH AND SIDE RAILS UP X2.
[2019-06-07 04:35] LABS: BASOPHILS ABSOLUTE AUTO 0.05 K/mm3 (0.00-0.23); BASOPHILS PERCENT AUTO 1 % (0-2); EOSINOPHILS ABSOLUTE AUTO 0.19 K/mm3 (0.00-0.68); EOSINOPHILS PERCENT AUTO 3 % (0-6); Hemoglobin 10.5 g/dL (13.5-17.5); IMMATURE GRAN ABSOLUTE AUTO 0.02 K/mm3 (0.00-0.10); IMMATURE GRAN PERCENT AUTO 0 % (0-1); LYMPHOCYTES ABSOLUTE AUTO 1.98 K/mm3 (0.84-5.20); LYMPHOCYTES PERCENT AUTO 27 % (21-46); MONOCYTES ABSOLUTE AUTO 0.73 K/mm3 (0.16-1.47); MONOCYTES PERCENT AUTO 10 % (4-13); Mean Corpuscular HGB 29.2 pg (26.0-34.0); Mean Corpuscular HGB Conc 31.8 g/dL (31.5-36.5); Mean Corpuscular Volume 92 fL (80-100); Mean Platelet Volume 10.1 fL (9.1-12.4); NEUTROPHILS ABSOLUTE AUTO 4.35 K/mm3 (1.96-9.15); NEUTROPHILS PERCENT AUTO 59 % (41-73); Platelet Count 286 K/mm3 (150-400); RDW Coefficient Variation 12.4 % (11.7-14.2); RDW Standard Deviation 41.3 fL (35.1-46.3); White Blood Cell Count 7.32 K/mm3 (4.00-11.30)
[2019-06-07 04:56] LABS: Albumin, Blood 2.2 g/dL (3.4-5.0); Anion Gap 6 mmol/L (6-16); Blood Urea Nitrogen 24 mg/dL (8-24); Bun/Creatinine Ratio 21.8 (12.0-20.0); CO2, Blood 27 mmol/L (21-32); Calcium, Blood 8.3 mg/dL (8.5-10.1); Chloride, Blood 103 mmol/L (98-108); Glomerular Filtration Rate >60 (60-); Glucose, Blood 248 mg/dL (70-99); Phosphorus, Blood 3.2 mg/dL (2.5-4.9); Potassium, Blood 4.3 mmol/L (3.5-5.5); Sodium, Blood 136 mmol/L (136-145)
--- NOTE | 2019-06-07 19:00 | NUR ---
PT. UP IN RECLINER MOST OF THE DAY. NO NOTEABLE CHANGES TODAY.
--- NOTE | 2019-06-07 19:00 | NUR ---
NO NOTEABLE CHANGES THIS SHIFT. PT HAS SLEPT MOST OF THE DAY. REFUSED PT/OT. IV BUMEX STOPPED AND IV LASIX STARTED.
--- NOTE | 2019-06-08 03:40 | NUR ---
SHIFT SUMMARY- PT. SLEPT WELL T/O THE NIGHT, NO ACUTE CHANGES OVERNIGHT. PAIN CONTROLLED WELL WITH CURRENT PAIN MEDICATION. DRESSING TO THE LT FOOT C/D/I. CALL LIGHT WITHIN REACH AND SIDE RAILS UP X2. WILL CONT TO MONITOR.
--- NOTE | 2019-06-08 19:00 | NUR ---
PT. BACK IN BED FOR DINNER, REFUSED TO GET UP. S.S. IN TO SEE PT. TRYING TO FIND PLACEMENT FOR PT. PT. HAD A SHOWER TODAY ASSISTED BY PAUL
--- NOTE | 2019-06-09 04:49 | NUR ---
SHIFT SUMMARY PT UP LATE WATCHING TV. NO ISSUES NOTED. PT IN GOOD SPIRITS AND HAD NO COMPLAINTS. PT ABLE TO TRANSFER ON OWN FROM RECLINER TO BED WITH OUT DIFFICULTY. PT CURRENTLY SLEEPING IN NO DISTRESS. CALL LIGHT IN REACH.
--- NOTE | 2019-06-09 18:20 | NUR ---
DISCHARGE NOTE OX4; INDEPENDENT. VOMITING X1 THIS A.M. HX OF SHINGLES C/O PAIN TO SITE, MEDICATED THROUGHOUT DAY. NEW ORDER FOR SLEEP MED RECEIVED. LASIX AND ALBUMIN INFUSIONS SCHEDULED. PLAN IS FOR EITHER HOME HEALTH OR PSYCH REHAB. MO PATIENT.
--- NOTE | 2019-06-09 18:32 | NUR ---
SHIFT SUMMARY PT UP IN CHAIR FOR BREAKFAST AND LUNCH. LEFT FOOT AMPUTEE MEDICATED FOR PAIN TO SITE THROUGHOUT SHIFT. EATING AND DRINKING WELL. PLEASANT, CALM. ABLE TO TRANSFER STANDBY ASSIST FROM BED TO BSC.
--- NOTE | 2019-06-10 04:39 | NUR ---
SHIFT SUMMARY PT PLEASANT AND COOPERATIVE. AWAKE THE ENTIRE NIGHT. PT REPORTS THAT THIS IS NORMAL FOR HIM AND THAT HE IS "A NIGHT OWL". PT REPORTS 7/10 PAIN THAT REMAINS UNCHANGED EVEN AFTER PAIN MEDICATION. MEDICATED W/ 1 TAB PERCOCET Q 6 HOURS. DRESSING TO L FOOT CLEAN, DRY, AND INTACT. WRAP AND SPLINT REMAIN IN PLACE TO R HAND. VITAL SIGNS STABLE. NO ACUTE CHANGES THIS SHIFT.
--- NOTE | 2019-06-10 09:56 | NUR ---
HE HAS HAD HIS BREAKFAST AND MEDS. HE WANTED TO REST AFTERWARDS SO TURNED DOWN THERAPY WHEN THEY WENT IN.
--- NOTE | 2019-06-10 13:35 | NUR ---
HE WORKED WITH THERAPY JUST BEFORE LUNCH. HE HAS BEEN IN THE RECLINER NOW FOR 1 HR AND 45 MIN. HE ATE LUNCH AND NOW IS ASLEEP. I MEDICATED HIM FOR L FOOT PAIN WITH PERCOCET.
--- NOTE | 2019-06-10 16:40 | NUR ---
HE REMAINS COMFORTABLE IN THE RECLINER. NO COMPLAINTS. USES THE URINAL WELL. EATS AND DRINKS WELL. RH AND L FOOT DRESSINGS CD&I. THE RH DRESSING IS OVER A SPLINT. HE IS WATCHING TV. HE UNDERSTANDS HE IS NWB ON THE L FOOT WHEN HE TRANSFERS.
--- NOTE | 2019-06-11 04:38 | NUR ---
SHIFT SUMMARY PT CONTINUES TO HAVE PAIN IN HIS LEFT FOOT. MEDICATED PER ORDERS WITH 1 TAB PERCOCET. PT PLEASANT AND COOPERATIVE. USED URINAL INDEPENDENTLY IN THE BED. STAND PIVOT FOR TRANSFERS. DRESSINGS TO LEFT FOOT AND R HAND CLEAN, DRY, AND INTACT. PT AWAKE MUCH OF THE EVENING AGAIN TONIGHT. REMAINED IN CHAIR FOR A SHORT WHILE AT START OF THE SHIFT AND THEN STAYED IN BED THE REMAINDER OF THE NIGHT. BLOOD PRESSURE SLIGHTLY HYPOTENSIVE, THIS HAS BEEN HIS NORMAL. OTHERWISE VITAL SIGNS STABLE. NO ACUTE CHANGES THIS SHIFT.
--- NOTE | 2019-06-11 11:05 | NUR ---
HE HAS BEEN SLEEPING THROUGHOUT THE MORNING EXCEPT FOR TAKING AM MEDS AND EATING BREAKFAST LATE. ROUNDED. PERCNICKET WAS GIVEN X1. IT HAS SINCE BEEN DC'D. WILL ENCOURAGE UP TO THE CHAIR AT LUNCHTIME.
--- NOTE | 2019-06-11 15:07 | NUR ---
NO COMPLAINTS THIS AFTERNOON. ASLEEP IN THE RECLINER CHAIR. BED LINENS CHANGED.
--- NOTE | 2019-06-11 16:14 | NUR ---
WATCHING TV. HE REMAINS IN THE RECLINER CHAIR. HE ASKED FOR CRANBERRY JUICE SO CBG CHECKED EARLY. CBG 126.
--- NOTE | 2019-06-11 16:57 | NUR ---
SALINE LOCK WAS DC'D BEFORE BREAKFAST. CATHETER WAS FOLDED UNDER THE DRESSING AND HE HAS NO IV MEDICATIONS ORDERED. ROUNDED AT BREAKFAST TIME AND AGREED LEAVE IT OUT. L FOOT AND RH DRESSINGS CD&I. SPLINT ON RH UNDER THE DRESSING. FRACTURED FINGER LOOKS SHORTER THAN THE REST. GOOD CMS IN ALL FINGERTIPS. MORE EDEMA IN HIS R LEG THAN HIS LEFT. HIS LEGS HAVE BEEN ELEVATED ALL AFTERNOON WITH HIS CHAIR FULLY RECLINED. NO COMPLAINTS.
--- NOTE | 2019-06-12 04:24 | NUR ---
SHIFT SUMMARY PER PT'S NORMAL BEHAVIOUR, HE WAS AWAKE THROUGH MUCH OF THE NIGHT. SLEEPING FOR ONLY A SHORT PERIOD OF TIME EARLY THIS AM. PT CONTINUES TO REPORT PAIN TO LEFT FOOT AND R HAND. MEDICATED PER EMAR. R HAND REWRAPPED WITH GAUZE, SPLINT AND SAL WRAP PER PT REQUEST. DRESSING TO LEFT FOOT REMAINS CLEAN, DRY, AND INTACT. BOTH WRAPPED IN TRASH BAGS AND PT TOOK A SHOWER THIS EVENING. PT REQUESTS FREQUENT SNACKS, EDUCATED PT ON CONTROLLING BLOOD SUGARS AND DIET. PT COMPLIANT WITH NON WEIGHT BEARING TO LLE. PIVOT TRANSFERED FROM CHAIR TO BED AND HOPPED ON ONE FOOT TO THE SHOWER. VSS. NO ACUTE CHANGES THIS SHIFT.
--- NOTE | 2019-06-12 18:35 | NUR ---
PT. UP UN CHAIR. HAS BEEN UP SINCE BEFORE LUNCH. PT. TAKEN OUTSIDE TO SMOKE BY FRIEND. TRIED TO GE PT. NOT TO GO OUT BUT COULD NOT TALK HIM OUT OF IT. SS SCALE INSULIN DISCONTINUED BY THE 10 UNITS AT MEAL TIME CONTINUED ALONG WITH METFORMIN.
--- NOTE | 2019-06-13 04:27 | NUR ---
SHIFT SUMMARY PT HAD SOME PAIN DURING SHIFT. MANAGED WELL WITH ORDERED MEDS. PT SLEPT WELL T/O SHIFT. NO ISSUES NOTED. PT CURRENTLY SLEEPING IN NO DISTRESS. CALL LIGHT IN REACH.
[2019-06-13] MEDS ORDERED: Humulin N100 UNIT/1 SC (08:25)
[2019-06-13] MEDS ORDERED: Novolin R100 UNIT/M SC (08:26)
--- NOTE | 2019-06-13 12:50 | NUR ---
PT. DISCHARGED HOME WITH FRIEND. DISCHARGE INSTRUCTIONS GIVEN AND PACKET FOR [facility] PREPARED BY LORIE TAN GIVEN PT. MEDS CALLED TO [facility] AND METFORMIN IN DRAWER GIVEN BACK TO PT.
== END 2019-06-13 12:49 | disposition home health service (06) | DRG 617 ==
LOC: ER 15:23 → SURS 18:12 → MEDS 18:12 → ENPENDDIS 06-13 08:23 → MEDS 06-13 12:49
PROVIDERS: Emergency Medicine; Internal Medicine; Podiatrist Foot & Ankle Surgery; ADMIT Internal Medicine
PROC: 0Y6Y0Z0 Detachment at Left 5th Toe, Complete, Open Approach (ICD-10-PCS; 2019-06-04)
PROC: 0Y6W0Z0 Detachment at Left 4th Toe, Complete, Open Approach (ICD-10-PCS; 2019-06-04)
PROC: 0Y6U0Z0 Detachment at Left 3rd Toe, Complete, Open Approach (ICD-10-PCS; 2019-06-04)
PROC: 0Y6S0Z0 Detachment at Left 2nd Toe, Complete, Open Approach (ICD-10-PCS; 2019-06-04)
PROC: 0Y6Q0Z0 Detachment at Left 1st Toe, Complete, Open Approach (ICD-10-PCS; principal; 2019-06-04 08:00)
DX: E11.69 Type 2 diabetes mellitus with other specified complication (principal); L97.429 Non-pressure chronic ulcer of left heel and midfoot with unspecified severity; M86.9 Osteomyelitis, unspecified; E11.621 Type 2 diabetes mellitus with foot ulcer; Z79.4 Long term (current) use of insulin; Z59.0 Homelessness; F17.210 Nicotine dependence, cigarettes, uncomplicated; E11.22 Type 2 diabetes mellitus with diabetic chronic kidney disease; I12.9 Hypertensive chronic kidney disease with stage 1 through stage 4 chronic kidney disease, or unspecified chronic kidney disease; N18.2 Chronic kidney disease, stage 2 (mild); E66.9 Obesity, unspecified; Z68.31 Body mass index [BMI] 31.0-31.9, adult; S62.613A Displaced fracture of proximal phalanx of left middle finger, initial encounter for closed fracture
CPT/HCPCS: 29125; 36415; 73130; 73630; 80048; 80053; 80069; 80202; 81001; 82947; 83036; 83605; 85025; 85027; 85651; 86140; 87040; 87070; 87075; 87205; 88307; 88311; 93005; 93010; 97110; 97116; 97162; 97166; 97530; 99285-25; J1650; J1815; J2370; J2405; J2543; J2704; J2765; J3010; J3370; J7050; J7120

== ENCOUNTER 2019-06-17 19:54 | Emergency (ER) | payer OTHER ==
[~2019-06-17] VITALS: Ht 177.8 cm; Wt 101.2 kg
[~2019-06-17 19:54] MED LIST changes: +Humulin N100 UNIT/1 SC; +MELO7.5; +NAPR500EC PO; +Novolin R100 UNIT/M SC; +PIOG15 PO; +Silvadene20 GM TOP
== END 2019-06-17 21:50 | disposition home or self-care (01) ==
LOC: ER 19:54
DX: G89.18 Other acute postprocedural pain (principal); M79.672 Pain in left foot; I10 Essential (primary) hypertension; E11.9 Type 2 diabetes mellitus without complications; F17.210 Nicotine dependence, cigarettes, uncomplicated; Z79.4 Long term (current) use of insulin; Z86.73 Personal history of transient ischemic attack (TIA), and cerebral infarction without residual deficits; Z89.432 Acquired absence of left foot
CPT/HCPCS: 73620; 99283-25

== ENCOUNTER 2019-06-29 20:37 | Emergency (ER) | payer OTHER ==
[~2019-06-29] VITALS: Ht 180.3 cm; Wt 104.3 kg
[2019-06-29] MEDS ORDERED: Cephalexin500 MG PO (20:48)
== END 2019-06-29 21:15 | disposition home or self-care (01) ==
LOC: ER 20:37
DX: T87.81 Dehiscence of amputation stump (principal); E11.9 Type 2 diabetes mellitus without complications; I10 Essential (primary) hypertension; F17.210 Nicotine dependence, cigarettes, uncomplicated; Z79.4 Long term (current) use of insulin; Z86.73 Personal history of transient ischemic attack (TIA), and cerebral infarction without residual deficits; Z89.422 Acquired absence of other left toe(s)
CPT/HCPCS: 99283

== ENCOUNTER 2020-09-13 15:39 | Inpatient (IN) | payer OTHER ==
[~2020-09-13] VITALS: Ht 182.9 cm; Wt 101.0 kg
[~2020-09-13 15:39] MED LIST changes: +Cephalexin500 MG PO
[2020-09-13 16:51] LABS: BASOPHILS ABSOLUTE AUTO 0.05 K/mm3 (0.00-0.23); BASOPHILS PERCENT AUTO 0 % (0-2); EOSINOPHILS ABSOLUTE AUTO 0.09 K/mm3 (0.00-0.68); EOSINOPHILS PERCENT AUTO 1 % (0-6); Hematocrit 41.4 % (37.0-53.0); Hemoglobin 13.8 g/dL (13.5-17.5); IMMATURE GRAN PERCENT AUTO 2 % (0-1); LYMPHOCYTES ABSOLUTE AUTO 1.81 K/mm3 (0.84-5.20); LYMPHOCYTES PERCENT AUTO 14 % (21-46); MONOCYTES ABSOLUTE AUTO 0.77 K/mm3 (0.16-1.47); MONOCYTES PERCENT AUTO 6 % (4-13); Mean Corpuscular HGB 29.4 pg (26.0-34.0); Mean Corpuscular HGB Conc 33.3 g/dL (31.5-36.5); Mean Corpuscular Volume 88 fL (80-100); Mean Platelet Volume 10.7 fL (9.1-12.4); NEUTROPHILS ABSOLUTE AUTO 9.69 K/mm3 (1.96-9.15); NEUTROPHILS PERCENT AUTO 77 % (41-73); Platelet Count 306 K/mm3 (150-400); RDW Coefficient Variation 11.9 % (11.7-14.2); RDW Standard Deviation 38.9 fL (35.1-46.3); White Blood Cell Count 12.61 K/mm3 (4.00-11.30)
[2020-09-13 17:12] LABS: Alanine Aminotransfer (ALT/SGP 21 U/L (12-78); Albumin, Blood 2.9 g/dL (3.4-5.0); Albumin/Globulin Ratio 0.6 (0.8-1.8); Alk Phos 242 U/L (50-136); Anion Gap 7 mmol/L (6-16); Aspartate Aminotrans (AST/SGOT 13 U/L (12-37); Bilirubin, Total 0.3 mg/dL (0.1-1.0); Blood Urea Nitrogen 22 mg/dL (8-24); Bun/Creatinine Ratio 19.6 (12.0-20.0); CO2, Blood 25 mmol/L (21-32); Calcium, Blood 8.9 mg/dL (8.5-10.1); Chloride, Blood 98 mmol/L (98-108); Creatinine, Blood 1.12 mg/dL (0.60-1.20); Globulin, Blood 4.7 g/dL (2.2-4.0); Glomerular Filtration Rate >60 (60-); Glucose, Blood 479 mg/dL (70-99); Potassium, Blood 4.5 mmol/L (3.5-5.5); Sodium, Blood 130 mmol/L (136-145); Total Protein, Blood 7.6 g/dL (6.4-8.2)
[2020-09-14 05:23] LABS: BASOPHILS ABSOLUTE AUTO 0.06 K/mm3 (0.00-0.23); BASOPHILS PERCENT AUTO 1 % (0-2); EOSINOPHILS ABSOLUTE AUTO 0.18 K/mm3 (0.00-0.68); EOSINOPHILS PERCENT AUTO 2 % (0-6); Hematocrit 36.1 % (37.0-53.0); IMMATURE GRAN ABSOLUTE AUTO 0.13 K/mm3 (0.00-0.10); IMMATURE GRAN PERCENT AUTO 1 % (0-1); LYMPHOCYTES ABSOLUTE AUTO 2.47 K/mm3 (0.84-5.20); LYMPHOCYTES PERCENT AUTO 24 % (21-46); MONOCYTES ABSOLUTE AUTO 0.75 K/mm3 (0.16-1.47); MONOCYTES PERCENT AUTO 7 % (4-13); Mean Corpuscular HGB 29.5 pg (26.0-34.0); Mean Corpuscular HGB Conc 33.2 g/dL (31.5-36.5); Mean Corpuscular Volume 89 fL (80-100); Mean Platelet Volume 10.9 fL (9.1-12.4); NEUTROPHILS ABSOLUTE AUTO 6.85 K/mm3 (1.96-9.15); NEUTROPHILS PERCENT AUTO 66 % (41-73); Platelet Count 283 K/mm3 (150-400); RDW Coefficient Variation 12.1 % (11.7-14.2); RDW Standard Deviation 39.5 fL (35.1-46.3); Red Blood Cell Count 4.07 M/mm3 (4.30-5.90); White Blood Cell Count 10.44 K/mm3 (4.00-11.30)
--- NOTE | 2020-09-14 05:36 | NUR ---
SHIFT SUMMARY PT ARRIVED TO UNIT FROM ED VIA STRETCHER @ 2123. TRANSFERRED FROM STRETCHER TO STANDING SCALE THEN TO BED SBA. PRESSURE ULCER PRESENT ON L HIP, CLEANED WITH WOUND CLEANSER AND DRESSED WITH MEPILEX. WOUND TO L INDEX FINGER, CLEANED WITH WOUND CLEANSER AND DRESSED WITH NON-ADHERENT DRSG AND WRAPPED WITH GAUZE. PHOTOS IN CHART. A&O X4. PATIENT DOESN'T C/O PAIN BUT STATES HIS FINGER IS FEELING NUMB. PT IS LAYING IN BED WITH EYES CLOSED, EVEN AND UNLABORED RESPIRATIONS. BED IS IN LOWERED POSITION WITH CALL LIGHT AND PERSONAL ITEMS WITHIN REACH. NO APPARENT NEEDS OR DISTRESS AT THIS TIME, WILL CONTINUE TO MONITOR UNTIL REPORT GIVEN TO DAY RN.
[2020-09-14 05:46] LABS: Alanine Aminotransfer (ALT/SGP 17 U/L (12-78); Albumin, Blood 2.4 g/dL (3.4-5.0); Albumin/Globulin Ratio 0.6 (0.8-1.8); Alk Phos 144 U/L (50-136); Anion Gap 6 mmol/L (6-16); Aspartate Aminotrans (AST/SGOT 12 U/L (12-37); Bilirubin, Total 0.3 mg/dL (0.1-1.0); Blood Urea Nitrogen 20 mg/dL (8-24); Bun/Creatinine Ratio 19.6 (12.0-20.0); CO2, Blood 25 mmol/L (21-32); Calcium, Blood 8.3 mg/dL (8.5-10.1); Chloride, Blood 106 mmol/L (98-108); Creatinine, Blood 1.02 mg/dL (0.60-1.20); Globulin, Blood 4.1 g/dL (2.2-4.0); Glomerular Filtration Rate >60 (60-); Glucose, Blood 267 mg/dL (70-99); Potassium, Blood 3.8 mmol/L (3.5-5.5); Sodium, Blood 137 mmol/L (136-145); Total Protein, Blood 6.5 g/dL (6.4-8.2)
--- NOTE | 2020-09-14 14:37 | NUR ---
DR TONY NOTIFIED OF CBG OF 220 AND PT IS NPO. DR TONY GAVE ORDERS TO ONLY GIVE 5 UNITS OF INSULIN GLARGINE INSTEAD OF THE SCHEDULED 20.
--- NOTE | 2020-09-14 18:45 | NUR ---
SHIFT SUMMARY PT AXO, PLEASANT AND COOPERATIVE WITH CARE. VSS. PT NPO THROUGHOUT THE DAY. NURSE SPOKE WITH DR ROMERO WHO STATED PT CAN EAT DINNER. DR ROMERO ALSO STATES THAT HE WILL BE IN IN THE MORNING FOR BEDSIDE ASSESSMENT POSSIBLY PROCEDURE. SUPPLIES GATHERED AND AVAILABLE PER HIS RESQUEST AT BEDSIDE. MEPILEX APPLIED TO L. THIGH AND NEW DRESSING TO L. INDEX FINGER DRAINING PURULENT DRAINAGE. BED ALARM ON. IV PATENT AND SALINE LOCKED. PT INCONTINENT AND UNAWARE OF STOOL SMEARED ON BED. PT HAD SHOWER THIS SHIFT.
[2020-09-15 05:38] LABS: BASOPHILS ABSOLUTE AUTO 0.07 K/mm3 (0.00-0.23); BASOPHILS PERCENT AUTO 1 % (0-2); EOSINOPHILS ABSOLUTE AUTO 0.15 K/mm3 (0.00-0.68); EOSINOPHILS PERCENT AUTO 2 % (0-6); Hematocrit 36.4 % (37.0-53.0); IMMATURE GRAN ABSOLUTE AUTO 0.11 K/mm3 (0.00-0.10); IMMATURE GRAN PERCENT AUTO 1 % (0-1); LYMPHOCYTES ABSOLUTE AUTO 2.45 K/mm3 (0.84-5.20); LYMPHOCYTES PERCENT AUTO 31 % (21-46); MONOCYTES ABSOLUTE AUTO 0.64 K/mm3 (0.16-1.47); MONOCYTES PERCENT AUTO 8 % (4-13); Mean Corpuscular HGB 29.4 pg (26.0-34.0); Mean Corpuscular Volume 89 fL (80-100); Mean Platelet Volume 10.6 fL (9.1-12.4); NEUTROPHILS ABSOLUTE AUTO 4.55 K/mm3 (1.96-9.15); NEUTROPHILS PERCENT AUTO 57 % (41-73); Platelet Count 271 K/mm3 (150-400); RDW Coefficient Variation 12.2 % (11.7-14.2); RDW Standard Deviation 39.9 fL (35.1-46.3); Red Blood Cell Count 4.08 M/mm3 (4.30-5.90); White Blood Cell Count 7.97 K/mm3 (4.00-11.30)
--- NOTE | 2020-09-15 05:55 | NUR ---
SHIFT SUMMARY NO ACUTE CHANGES THIS SHIFT. PT HAS BEEN NPO SINCE MIDNIGHT FOR PENDING PROCEDURE. SLEPT WELL T/O NIGHT. MEDICATED X1 FOR PAIN. OTHERWISE NO COMPLAINTS. PT IS LAYING IN BED WITH EYES CLOSED, EVEN AND UNLABORED RESPIRATIONS. BED IN LOWERED POSITION WITH CALL LIGHT AND PERSONAL ITEMS WITHIN REACH. NO APPARENT NEEDS OR DISTRESS AT THIS TIME, WILL CONTINUE TO MONITOR UNTIL REPORT GIVEN TO DAY RN.
[2020-09-15 06:15] LABS: Alanine Aminotransfer (ALT/SGP 15 U/L (12-78); Albumin, Blood 2.2 g/dL (3.4-5.0); Albumin/Globulin Ratio 0.6 (0.8-1.8); Alk Phos 122 U/L (50-136); Anion Gap 6 mmol/L (6-16); Aspartate Aminotrans (AST/SGOT 9 U/L (12-37); Bilirubin, Total 0.2 mg/dL (0.1-1.0); Blood Urea Nitrogen 22 mg/dL (8-24); Bun/Creatinine Ratio 21.8 (12.0-20.0); CO2, Blood 25 mmol/L (21-32); Calcium, Blood 8.2 mg/dL (8.5-10.1); Chloride, Blood 108 mmol/L (98-108); Creatinine, Blood 1.01 mg/dL (0.60-1.20); Glomerular Filtration Rate >60 (60-); Glucose, Blood 217 mg/dL (70-99); Magnesium, Blood 1.9 mg/dL (1.6-2.4); Potassium, Blood 3.7 mmol/L (3.5-5.5); Sodium, Blood 139 mmol/L (136-145); Total Protein, Blood 6.2 g/dL (6.4-8.2); Vancomycin, Trough 11.5 ug/mL (5.0-10.0)
--- NOTE | 2020-09-15 18:10 | NUR ---
SHIFT SUMMARY HOLLY HAD AN I&D THIS MORNING. BANDAGE IN PLACE, ORTHO SURGEON SAID TO LEAVE IT IN PLACE UNTIL HE COMES TO CHANGE IT TOMORROW. GOT IV PAIN MEDS ONCE AND TORADOL ONCE. SBA TO BR. INCONTINENT STOOL IN BRIEF. L HIP PRESSURE ULCER CLEANED AND REDRESSED. TOOK MEDS PRESCRIBED. CBGS HIGH, SLIDING SCALE INCREASED TO MEDIUM. WCTM
--- NOTE | 2020-09-16 05:42 | NUR ---
SHIFT SUMMARY NO ACUTE CHANGES THIS SHIFT. PT RECEIVED SHOWER. PT HAD HARD TIME SLEEPING, RECEIVED ORDER FOR MELATONIN. MEDICATED FOR PAIN X3 PER JAN. PT WAS ABLE TO FALL ASLEEP ABOUT 0230. PT IS LAYING IN BED WITH EYES CLOSED, EVEN AND UNLABORED RESPIRATIONS. VS OBTAINED. BED IN LOWERED POSITION WITH CALL LIGHT AND PERSONAL ITEMS WITHIN REACH. NO APPARENT NEEDS OR DISTRESS AT THIS TIME, WILL CONTINUE TO MONITOR UNTIL REPORT GIVEN TO RN.
--- NOTE | 2020-09-16 16:10 | NUR ---
SHIFT SUMMARY PT SLEEPING AT START OF SHIFT, RESTING QUIETLY. WOKE EASILY FOR CARE. DRSG TO C/D/I. PER SHIFT REPORT, PT HAD I&D YESTERDAY AND DR ROMERO TO COME IN AND CHANGE DRSG TODAY. IV ABX GIVEN PER EMAR. PT MEDICATED FOR C/O PAIN PER EMAR WELL. ICE BAGS GIVEN THRU OUT THE DAY FOR PT TO USE TO HELP WITH PAIN WELL. ORTHO DOCTORS IN THIS AFTERNOON TO CHANGE DRSG. DR TONY ADJUSTED PAIN MEDICATION TODAY. PT MEDICATED AFTER DRSG CHANGE. PT NONCOMPLIANT DIABETIC. IN CONTACT [facility] FOR HX OF MRSA AND OPEN WOUND. PER REPORT, PT HOMELESS WITH HX OF METH ABUSE AND GETTING EVICTED FROM [facility]. L HIP ULCER W/MEPILEX IN PLACE. 1P SBA TO BTHRM. FREQUENTLY ASKS FOR DRINKS AND SNACKS. RESTING QUIETLY AT THIS TIME. CALL LT IN REACH.
--- NOTE | 2020-09-17 01:37 | NUR ---
09/17/20 0135 PT UNABLE TO SLEEP. MELATONIN GIVEN PER JAN. C/O BEING "HOT". PORTABLE FAN GIVEN. DRESSING TO LEFT HAND AND FINGER DRY AND INTACT AND RESTING ON PILLOW. RN ENCOURAGED HIM TO SLEEP NOW.
[2020-09-17 05:03] LABS: BASOPHILS ABSOLUTE AUTO 0.06 K/mm3 (0.00-0.23); BASOPHILS PERCENT AUTO 1 % (0-2); EOSINOPHILS ABSOLUTE AUTO 0.13 K/mm3 (0.00-0.68); EOSINOPHILS PERCENT AUTO 2 % (0-6); Hemoglobin 11.3 g/dL (13.5-17.5); IMMATURE GRAN PERCENT AUTO 1 % (0-1); LYMPHOCYTES ABSOLUTE AUTO 2.55 K/mm3 (0.84-5.20); LYMPHOCYTES PERCENT AUTO 29 % (21-46); MONOCYTES ABSOLUTE AUTO 0.57 K/mm3 (0.16-1.47); MONOCYTES PERCENT AUTO 6 % (4-13); Mean Corpuscular HGB Conc 32.3 g/dL (31.5-36.5); Mean Corpuscular Volume 90 fL (80-100); Mean Platelet Volume 10.9 fL (9.1-12.4); NEUTROPHILS ABSOLUTE AUTO 5.45 K/mm3 (1.96-9.15); NEUTROPHILS PERCENT AUTO 62 % (41-73); Platelet Count 238 K/mm3 (150-400); RDW Coefficient Variation 12.4 % (11.7-14.2); RDW Standard Deviation 40.4 fL (35.1-46.3); Red Blood Cell Count 3.89 M/mm3 (4.30-5.90); White Blood Cell Count 8.86 K/mm3 (4.00-11.30)
[2020-09-17 05:35] LABS: Alanine Aminotransfer (ALT/SGP 21 U/L (12-78); Albumin, Blood 2.3 g/dL (3.4-5.0); Albumin/Globulin Ratio 0.6 (0.8-1.8); Alk Phos 108 U/L (50-136); Anion Gap 7 mmol/L (6-16); Aspartate Aminotrans (AST/SGOT 13 U/L (12-37); Bilirubin, Total 0.3 mg/dL (0.1-1.0); Blood Urea Nitrogen 22 mg/dL (8-24); Bun/Creatinine Ratio 20.2 (12.0-20.0); CO2, Blood 23 mmol/L (21-32); Calcium, Blood 8.5 mg/dL (8.5-10.1); Chloride, Blood 110 mmol/L (98-108); Creatinine, Blood 1.09 mg/dL (0.60-1.20); Glomerular Filtration Rate >60 (60-); Glucose, Blood 158 mg/dL (70-99); Potassium, Blood 4.3 mmol/L (3.5-5.5); Sodium, Blood 140 mmol/L (136-145); Total Protein, Blood 6.3 g/dL (6.4-8.2)
--- NOTE | 2020-09-17 06:43 | NUR ---
09/17/20 0630 AWAKENED FOR AM MEDS AND PAIN MED. CHEERFUL AND WANRING RO GO BACK TO SLEEP. ISOLATION MAINTAINED. VITALS STABLE. PT VERY NON-COMPLIANT WITH DIABETIC DIET. DRESSINGS INTACT AND DRY.
--- NOTE | 2020-09-17 17:09 | NUR ---
PATIENT IS ALERT AND ORIENTED AND COOPERATIVE WITH CARE. THE WOUND ON HIS LEFT HAND WAS CLEANED, PACKED AND DRESSED. THE WOUND ON THE PATIENT LEFT HIP WAS CLEANED AND A NEW MEPILEX PLACED. DR. TONY LOOKED AT THE PATIENT'S LEFT HIP WOUND TODAY. PATIENT C/O PAIN, TREATED PER EMAR. WILL CONTINUE TO MONITOR
[2020-09-18 04:58] LABS: BASOPHILS ABSOLUTE AUTO 0.05 K/mm3 (0.00-0.23); BASOPHILS PERCENT AUTO 1 % (0-2); EOSINOPHILS ABSOLUTE AUTO 0.13 K/mm3 (0.00-0.68); EOSINOPHILS PERCENT AUTO 1 % (0-6); Hematocrit 34.7 % (37.0-53.0); Hemoglobin 11.3 g/dL (13.5-17.5); IMMATURE GRAN ABSOLUTE AUTO 0.06 K/mm3 (0.00-0.10); IMMATURE GRAN PERCENT AUTO 1 % (0-1); LYMPHOCYTES ABSOLUTE AUTO 2.42 K/mm3 (0.84-5.20); LYMPHOCYTES PERCENT AUTO 24 % (21-46); MONOCYTES ABSOLUTE AUTO 0.68 K/mm3 (0.16-1.47); MONOCYTES PERCENT AUTO 7 % (4-13); Mean Corpuscular HGB 29.6 pg (26.0-34.0); Mean Corpuscular HGB Conc 32.6 g/dL (31.5-36.5); Mean Corpuscular Volume 91 fL (80-100); Mean Platelet Volume 10.8 fL (9.1-12.4); NEUTROPHILS ABSOLUTE AUTO 6.69 K/mm3 (1.96-9.15); NEUTROPHILS PERCENT AUTO 67 % (41-73); Platelet Count 245 K/mm3 (150-400); RDW Coefficient Variation 12.5 % (11.7-14.2); RDW Standard Deviation 41.1 fL (35.1-46.3); Red Blood Cell Count 3.82 M/mm3 (4.30-5.90); White Blood Cell Count 10.03 K/mm3 (4.00-11.30)
--- NOTE | 2020-09-18 05:17 | NUR ---
09/18/20 0517 PT SLEPT ON AND OFF THIS SHIFT. DRESSING TO INDEX FINGER OF LEFT HAND REMAINS DRY AND INTACT. MEDICATED PRN FOR PAIN TO LEFT HAND FINGER. PT STILL WANTING FOOD SNACKS/DRINKS THROUGHOUT NIGHT BUT WILLING TO HAVE "SUGAR-FREE" ITEMS TONIGHT. ISOLATION MAINTAINED.
[2020-09-18 05:28] LABS: Alanine Aminotransfer (ALT/SGP 38 U/L (12-78); Albumin, Blood 2.3 g/dL (3.4-5.0); Albumin/Globulin Ratio 0.6 (0.8-1.8); Alk Phos 110 U/L (50-136); Anion Gap 7 mmol/L (6-16); Aspartate Aminotrans (AST/SGOT 39 U/L (12-37); Bilirubin, Total 0.3 mg/dL (0.1-1.0); Blood Urea Nitrogen 21 mg/dL (8-24); Bun/Creatinine Ratio 18.6 (12.0-20.0); CO2, Blood 24 mmol/L (21-32); Calcium, Blood 8.3 mg/dL (8.5-10.1); Chloride, Blood 111 mmol/L (98-108); Creatinine, Blood 1.13 mg/dL (0.60-1.20); Globulin, Blood 4.1 g/dL (2.2-4.0); Glomerular Filtration Rate >60 (60-); Glucose, Blood 155 mg/dL (70-99); Potassium, Blood 4.1 mmol/L (3.5-5.5); Sodium, Blood 142 mmol/L (136-145); Total Protein, Blood 6.4 g/dL (6.4-8.2)
--- NOTE | 2020-09-18 16:19 | NUR ---
SHIFT SUMMARY NO ACUTE CHANGES T/O SHIFT, A&Ox4. PT EXPERIENCED PAIN T/O DAY RELATED TO WOUND IN LEFT INDEX FINGER. FENTANYL DID NOT SEEM TO RELIEVE THE PAIN. CECILY SUGGESTED PERCOCET SINCE PT IS A POSSIBLE DC TOMORROW. PT SEEMS CONCERNED REGARDING HIS WOUNDS WITH DISCHARGE. EXPLAINED THAT WOUND APPOINTMENTS AND POSSIBLE TRANSPORTATION CAN BE SET UP IF HE IS WILLING. DAILY WOUND CHANGE AND CLEANING WAS COMPLETED TODAY WELL MEPILEX PLACED ON ULCER LOCATED ON THE LEFT HIP.
--- NOTE | 2020-09-19 03:59 | NUR ---
SHIFT SUMMARY PT HAD UNEVENTFUL NIGHT. PT COMPLAINED OF SAL WRAP ON L INDEX FINGER BEING TOO TIGHT, SAL WRAP LOOSENED. OTHERWISE DRESSING REMAINED C/D/I THROUGHOUT THE NIGHT. PT REPORTED PAIN TO L INDEX FINGER 6-05/31. MEDICATED W/ PERCOCET 1 TAB APPROX Q 4 HOURS. MEPILEX DRESSING TO PRESSURE ULCER ON L HIP ALSO REMAINED C/D/I. PT AWAKE MUCH OF THE NIGHT EVEN AFTER SCHEDULED SLEEP MEDICATION. VITAL SIGNS STABLE. NO ACUTE CHANGES THIS SHIFT. WILL CONTINUE TO MONITOR AND REPORT TO DAY RN.
[2020-09-19 04:44] LABS: BASOPHILS ABSOLUTE AUTO 0.04 K/mm3 (0.00-0.23); BASOPHILS PERCENT AUTO 0 % (0-2); EOSINOPHILS ABSOLUTE AUTO 0.13 K/mm3 (0.00-0.68); EOSINOPHILS PERCENT AUTO 1 % (0-6); Hematocrit 36.3 % (37.0-53.0); Hemoglobin 11.6 g/dL (13.5-17.5); IMMATURE GRAN ABSOLUTE AUTO 0.04 K/mm3 (0.00-0.10); IMMATURE GRAN PERCENT AUTO 0 % (0-1); LYMPHOCYTES PERCENT AUTO 29 % (21-46); MONOCYTES ABSOLUTE AUTO 0.83 K/mm3 (0.16-1.47); MONOCYTES PERCENT AUTO 9 % (4-13); Mean Corpuscular HGB 29.3 pg (26.0-34.0); Mean Corpuscular Volume 92 fL (80-100); Mean Platelet Volume 10.6 fL (9.1-12.4); NEUTROPHILS ABSOLUTE AUTO 5.45 K/mm3 (1.96-9.15); NEUTROPHILS PERCENT AUTO 60 % (41-73); Platelet Count 234 K/mm3 (150-400); RDW Coefficient Variation 12.6 % (11.7-14.2); RDW Standard Deviation 41.6 fL (35.1-46.3); Red Blood Cell Count 3.96 M/mm3 (4.30-5.90); White Blood Cell Count 9.09 K/mm3 (4.00-11.30)
[2020-09-19 05:05] LABS: Alanine Aminotransfer (ALT/SGP 48 U/L (12-78); Albumin, Blood 2.4 g/dL (3.4-5.0); Albumin/Globulin Ratio 0.6 (0.8-1.8); Alk Phos 110 U/L (50-136); Anion Gap 6 mmol/L (6-16); Aspartate Aminotrans (AST/SGOT 36 U/L (12-37); Bilirubin, Total 0.2 mg/dL (0.1-1.0); Blood Urea Nitrogen 22 mg/dL (8-24); Bun/Creatinine Ratio 18.3 (12.0-20.0); CO2, Blood 25 mmol/L (21-32); Calcium, Blood 8.4 mg/dL (8.5-10.1); Chloride, Blood 110 mmol/L (98-108); Globulin, Blood 4.1 g/dL (2.2-4.0); Glomerular Filtration Rate >60 (60-); Glucose, Blood 173 mg/dL (70-99); Potassium, Blood 4.3 mmol/L (3.5-5.5); Sodium, Blood 141 mmol/L (136-145); Total Protein, Blood 6.5 g/dL (6.4-8.2)
--- NOTE | 2020-09-19 09:31 | NUR ---
REACH, VITALS TAKEN.
--- NOTE | 2020-09-19 17:20 | NUR ---
SHIFT SUMMARY NO ACUTE CHANGES T/O SHIFT, A&Ox4. BOTH WOUND DRESSINGS WERE CHANGED TODAY AT APPROX 1600. PT TOLERATED DRESSING CHANGE OF L INDEX FINGER BETTER THAN THE DAY PRIOR. PT NOT EXPECTED TO DC UNTIL WEDNESDAY PER DR GRADY DUE TO LACK OF WOUND CARE OUTSIDE OF HOSPITAL. PT IS EATING DINNER CURRENTLY, CALL LIGHT WITHIN REACH.
--- NOTE | 2020-09-20 06:01 | NUR ---
SHIFT SUMMARY HAS BEEN RESTING QUIETLY WITH FW INTERRUPTIONS. REQUESTED AND RECEIVED ANALGESICS FOR LEFT INDEX FINER PAIN. DRESSING OF SAID DIGIT INTACT AND CDI. ANTIBIOTICS ADMINISTERED PER MD ORDERS - SEE MAR FOR DETAILS. CALL LIGHT IN REACH. ISOLATION MAINTAINED.
--- NOTE | 2020-09-20 16:40 | NUR ---
SHIFT SUMMARY PT AxOx4. PLEASANT AND COOPERATIVE WITH CARE. PT C/O PAIN IN L HAND FROM CELLULITIS. MEDICATED PER EMAR. GOOD APPETITE. SBA. CALLS APPROPRIATELY. DECLINED SHOWER TODAY. WOUND CARE AND PACKED TODAY. PLAN FOR DC WEDNESDAY WITH F/U AT WOUND CLINIC. VITALS REVIEWED. PT DENIES ANY NEEDS AT THIS TIME.
--- NOTE | 2020-09-20 19:15 | NUR ---
ASSUMED CARE RECEIVED REPORT FROM OMER TATE. ASSUMED CARE OF PT. RESTING COMFORTABLY AT THIS TIME, NO S/S ACUTE DISTRESS NOTED. RESPS EVEN AND UNLABORED. DENIES NEEDS. CALL LIGHT, POSSESSIONS IN REACH, BED IN LOW POSITION WILL CONTINUE TO MONITOR.
--- NOTE | 2020-09-21 05:21 | NUR ---
SHIFT SUMMARY PT HAS HAD AN UNEVENTFUL NIGHT. SLEPT T/O MUCH OF THE SHIFT. WAS MONITORED EVERY 1-2 HOURS WITH NEEDS MET. PAIN MANAGED WITH MEDS PER EMAR. DRSG TO LT HAND REMAINS C/D/I, CAP REFILL <3 SEC, PULSES STRONG, SKIN WARM AND DRY. VS REVIEWED. NO ACUTE CHANGES IN CONDITION NOTED T/O NIGHT. PT ASLEEP AT THIS TIME, DENIES NEEDS. CALL LIGHT AND POSSESSIONS IN REACH, BED IN LOW POSITION WITH ALARMS ON. WILL CONTINUE TO MONITOR AND PROVIDE CARE NEEDED UNTIL DAY RN ASSUMES CARE.
--- NOTE | 2020-09-21 18:02 | NUR ---
SHIFT SUMMARY PT [id number]. PLEASANT AND COOPERATIVE WITH CARE. SBA. CALLS APPROPRIATELY. PAIN LEVEL AVERAGING 5-7. L HAND/FINGER REDRESSED AND PACKED TODAY. PT ALSO HAD SHOWER. NEW MEPILEX TO PRESSURE ULCER ON L HIP. PLAN TO DC ON WEDNESDAY WITH FOLLOW UP AT WOUND CLINIC. VITALS REVIEWED. PT DENIES ANY NEEDS AT THIS TIME. CALL LIGHT IN REACH.
--- NOTE | 2020-09-21 19:15 | NUR ---
ASSUMED CARE RECEIVED REPORT FROM OMER TATE. ASSUMED CARE OF PT. RESTING COMFORTABLY AT THIS TIME, NO S/S ACUTE DISTRESS NOTED. DENIES NEEDS. CALL LIGHT, POSSESSIONS IN REACH, BED IN LOW POSITION. WILL CONTINUE TO MONITOR.
[2020-09-22 04:47] LABS: Hematocrit 38.3 % (37.0-53.0); Hemoglobin 12.3 g/dL (13.5-17.5); Mean Corpuscular HGB 29.4 pg (26.0-34.0); Mean Corpuscular HGB Conc 32.1 g/dL (31.5-36.5); Mean Corpuscular Volume 91 fL (80-100); Mean Platelet Volume 10.5 fL (9.1-12.4); Platelet Count 271 K/mm3 (150-400); RDW Coefficient Variation 12.7 % (11.7-14.2); RDW Standard Deviation 42.1 fL (35.1-46.3); Red Blood Cell Count 4.19 M/mm3 (4.30-5.90); White Blood Cell Count 9.01 K/mm3 (4.00-11.30)
[2020-09-22 05:07] LABS: Anion Gap 7 mmol/L (6-16); Blood Urea Nitrogen 25 mg/dL (8-24); Bun/Creatinine Ratio 23.4 (12.0-20.0); CO2, Blood 24 mmol/L (21-32); Calcium, Blood 8.6 mg/dL (8.5-10.1); Chloride, Blood 108 mmol/L (98-108); Creatinine, Blood 1.07 mg/dL (0.60-1.20); Glomerular Filtration Rate >60 (60-); Glucose, Blood 127 mg/dL (70-99); Potassium, Blood 4.4 mmol/L (3.5-5.5); Sodium, Blood 139 mmol/L (136-145)
--- NOTE | 2020-09-22 08:13 | NUR ---
SHIFT SUMMARY PT RESTING COMFORTABLY, NO S/S ACUTE DISTRESS NOTED. WAS MONITORED EVERY 1-2 HOURS WITH NEEDS MET. DENIES NEEDS AT THIS TIME. VS REVIEWED. DRSG TO LT HAND REMAINS C/D/I. PAIN MANAGED WITH MEDS PER EMAR, EFFECTIVE. CALL LIGHT, POSSESSIONS IN REACH, BED IN LOW POSITION, REPORT GIVEN TO OMER MONTOYA.
[2020-09-22] MEDS ORDERED: GLIP5 PO (13:54)
[2020-09-22] MEDS ORDERED: MELATONIN5 M1 PO (13:55)
[2020-09-22] MEDS ORDERED: AMOCLA875 PO (13:56)
[2020-09-22] MEDS ORDERED: VISBIOME PO (13:57)
--- NOTE | 2020-09-22 16:17 | NUR ---
LATE ENTRY FOR 1310: DISCHARGE SUMMARY: PATIENT ALERT AND ORIENTED. PATIENT CALM AND COOPERATIVE THROUGHOUT SHIFT. PATIENT CONTIUES TO EXPERIENCE HIGH LEVELS OF PAIN IN THE LEFT FINGER. MEDICATED PER PRNS AND PRIOR TO DRESSING CHANGE. PATIENT DRESSING CHANGED AND RE-PACKED. WOUND CARE REFERRAL IN PLACE. INSTRUCTIONS PROVIDED TO THE PATIENT RE: COMING TO THE WOUND CARE CENTER FOR FOLLOW-UP AND ANTIBIOTICS. BUS DIRECTIONS PROVIDED AND VOUCHER FOR A CAB RIDE TO [employer] [facility] PROVIDED. IN ADDITION TO INSTRUCTIONS ABOUT FOLLOWUP WITH PCP AND OTHER DISCHARGE INSTRUCTIONS. ALL DISCHARGE INSTRUCTIONS AND EDUCATION PROVIDED VERBALLY. PATIENT REFUSED PAPERWORK STATING "I CAN'T READ IT ANYWAY". ALL QUESTIONS AND CONCERNS ADDRESSED. PATIENT DISCHARGED WITH CANE. WALKED WITH PATIENT TO THE CAB. PATIENT STABLE AT TIME OF DISCHARGE.
--- NOTE | 2020-09-22 16:30 | NUR ---
IV REASSESSMENT: LATE ENTRY FOR 11:30 RIGHT ARM CONTINUES TO HAVE MORE SWELLING THAN LEFT ARM. REASSESSED IV SITE. FLUSHED EASILY AND BLOOD RETURN WAS EASY. PATIENT DENIES PAIN OR DISCOMFORT WITH FLUSH.
== END 2020-09-22 15:11 | disposition home or self-care (01) | DRG 982 ==
LOC: ER 15:39 → MEDS 21:17
PROVIDERS: Emergency Medicine; Internal Medicine; ADMIT Internal Medicine
PROC: 0LD80ZZ Extraction of Left Hand Tendon, Open Approach (ICD-10-PCS; principal; 2020-09-17)
DX: L03.012 Cellulitis of left finger (principal); M00.242 Other streptococcal arthritis, left hand; E87.1 Hypo-osmolality and hyponatremia; Z86.73 Personal history of transient ischemic attack (TIA), and cerebral infarction without residual deficits; I10 Essential (primary) hypertension; Z89.432 Acquired absence of left foot; F17.210 Nicotine dependence, cigarettes, uncomplicated; Z59.0 Homelessness; E11.69 Type 2 diabetes mellitus with other specified complication; F15.10 Other stimulant abuse, uncomplicated; M65.9 Synovitis and tenosynovitis, unspecified
CPT/HCPCS: 36415; 73201; 80048; 80053; 80202; 82947; 83605; 83735; 85025; 85027; 85651; 86140; 87040; 87070; 87075; 87147; 87205; 96361; 96365-59; 96366-59; 99285-25; A9270; A9270-GY; G0378; J0295; J0692; J1650; J1885; J3010; J3370; J7030; J7050; Q9967

== ENCOUNTER 2020-09-23 09:07 | Day surgery (SDC) | payer OTHER ==
[~2020-09-23 09:07] MED LIST changes: +AMOCLA875 PO; +GLIP5 PO; +MELATONIN5 M1 PO; +VISBIOME PO
== END 2020-09-23 23:54 | disposition home or self-care (01) ==
LOC: WOUND 09:07
DX: S69.92XA Unspecified injury of left wrist, hand and finger(s), initial encounter (principal); E11.42 Type 2 diabetes mellitus with diabetic polyneuropathy; I10 Essential (primary) hypertension; I25.2 Old myocardial infarction; F17.210 Nicotine dependence, cigarettes, uncomplicated; J44.9 Chronic obstructive pulmonary disease, unspecified; E78.2 Mixed hyperlipidemia; I69.354 Hemiplegia and hemiparesis following cerebral infarction affecting left non-dominant side; X58.XXXA Exposure to other specified factors, initial encounter; Z79.84 Long term (current) use of oral hypoglycemic drugs; Z79.899 Other long term (current) drug therapy
CPT/HCPCS: G0463

== ENCOUNTER 2020-10-01 00:55 | Day surgery (SDC) | payer OTHER | END 2020-10-01 23:02 | disposition home or self-care (01) | LOC: WOUND 00:55 | DX: S61.201A Unspecified open wound of left index finger without damage to nail, initial encounter (principal); L03.012 Cellulitis of left finger; E11.52 Type 2 diabetes mellitus with diabetic peripheral angiopathy with gangrene; I96 Gangrene, not elsewhere classified; E11.36 Type 2 diabetes mellitus with diabetic cataract; H26.9 Unspecified cataract; I89.0 Lymphedema, not elsewhere classified; J44.9 Chronic obstructive pulmonary disease, unspecified; G47.30 Sleep apnea, unspecified; E11.42 Type 2 diabetes mellitus with diabetic polyneuropathy; E78.5 Hyperlipidemia, unspecified; I10 Essential (primary) hypertension; I25.2 Old myocardial infarction; I25.10 Atherosclerotic heart disease of native coronary artery without angina pectoris; M06.9 Rheumatoid arthritis, unspecified; M19.90 Unspecified osteoarthritis, unspecified site; F03.90 Unspecified dementia, unspecified severity, without behavioral disturbance, psychotic disturbance, mood disturbance, and anxiety; F41.8 Other specified anxiety disorders; F25.9 Schizoaffective disorder, unspecified; M21.372 Foot drop, left foot; Z59.0 Homelessness; Z79.84 Long term (current) use of oral hypoglycemic drugs; Z79.899 Other long term (current) drug therapy; X58.XXXA Exposure to other specified factors, initial encounter ==

== ENCOUNTER 2020-10-08 00:13 | Day surgery (SDC) | payer OTHER | END 2020-10-08 23:07 | disposition home or self-care (01) | LOC: WOUND 00:13 | DX: E11.628 Type 2 diabetes mellitus with other skin complications (principal); L03.114 Cellulitis of left upper limb; S69.92XD Unspecified injury of left wrist, hand and finger(s), subsequent encounter; E11.42 Type 2 diabetes mellitus with diabetic polyneuropathy; I25.2 Old myocardial infarction; E78.5 Hyperlipidemia, unspecified; I10 Essential (primary) hypertension; I25.10 Atherosclerotic heart disease of native coronary artery without angina pectoris; F25.9 Schizoaffective disorder, unspecified; M21.372 Foot drop, left foot; E11.36 Type 2 diabetes mellitus with diabetic cataract; H26.9 Unspecified cataract; I89.0 Lymphedema, not elsewhere classified; J44.9 Chronic obstructive pulmonary disease, unspecified; G47.30 Sleep apnea, unspecified; K74.60 Unspecified cirrhosis of liver; M06.9 Rheumatoid arthritis, unspecified; F03.90 Unspecified dementia, unspecified severity, without behavioral disturbance, psychotic disturbance, mood disturbance, and anxiety; F41.8 Other specified anxiety disorders; Z79.84 Long term (current) use of oral hypoglycemic drugs; Z79.899 Other long term (current) drug therapy; Z59.0 Homelessness; Z51.5 Encounter for palliative care; X58.XXXD Exposure to other specified factors, subsequent encounter ==

== ENCOUNTER 2020-10-15 01:12 | Day surgery (SDC) | payer OTHER | END 2020-10-15 23:39 | disposition home or self-care (01) | LOC: WOUND 01:12 | DX: L03.114 Cellulitis of left upper limb (principal); S69.92XD Unspecified injury of left wrist, hand and finger(s), subsequent encounter; E11.42 Type 2 diabetes mellitus with diabetic polyneuropathy; I10 Essential (primary) hypertension; I25.2 Old myocardial infarction; E78.5 Hyperlipidemia, unspecified; I25.10 Atherosclerotic heart disease of native coronary artery without angina pectoris; E11.36 Type 2 diabetes mellitus with diabetic cataract; H26.9 Unspecified cataract; I89.0 Lymphedema, not elsewhere classified; J44.9 Chronic obstructive pulmonary disease, unspecified; G47.30 Sleep apnea, unspecified; K74.60 Unspecified cirrhosis of liver; M06.9 Rheumatoid arthritis, unspecified; M19.90 Unspecified osteoarthritis, unspecified site; F03.90 Unspecified dementia, unspecified severity, without behavioral disturbance, psychotic disturbance, mood disturbance, and anxiety; F41.8 Other specified anxiety disorders; M21.372 Foot drop, left foot; F25.9 Schizoaffective disorder, unspecified; Z79.84 Long term (current) use of oral hypoglycemic drugs; Z79.899 Other long term (current) drug therapy; Z51.5 Encounter for palliative care; X58.XXXD Exposure to other specified factors, subsequent encounter ==

== ENCOUNTER 2021-05-11 15:23 | Inpatient (IN) | payer OTHER ==
[~2021-05-11] VITALS: Ht 177.8 cm; Wt 93.0 kg
[2021-05-11 16:05] LABS: BASOPHILS ABSOLUTE AUTO 0.07 K/mm3 (0.00-0.23); BASOPHILS PERCENT AUTO 0 % (0-2); EOSINOPHILS PERCENT AUTO 0 % (0-6); Hemoglobin 12.6 g/dL (13.5-17.5); IMMATURE GRAN ABSOLUTE AUTO 0.26 K/mm3 (0.00-0.10); IMMATURE GRAN PERCENT AUTO 1 % (0-1); LYMPHOCYTES ABSOLUTE AUTO 1.64 K/mm3 (0.84-5.20); LYMPHOCYTES PERCENT AUTO 7 % (21-46); MONOCYTES ABSOLUTE AUTO 1.45 K/mm3 (0.16-1.47); MONOCYTES PERCENT AUTO 6 % (4-13); Mean Corpuscular HGB 27.1 pg (26.0-34.0); Mean Corpuscular HGB Conc 34.1 g/dL (31.5-36.5); Mean Corpuscular Volume 80 fL (80-100); Mean Platelet Volume 11.2 fL (9.1-12.4); NEUTROPHILS ABSOLUTE AUTO 19.15 K/mm3 (1.96-9.15); NEUTROPHILS PERCENT AUTO 85 % (41-73); Platelet Count 193 K/mm3 (150-400); RDW Coefficient Variation 13.3 % (11.7-14.2); Red Blood Cell Count 4.65 M/mm3 (4.30-5.90); White Blood Cell Count 22.57 K/mm3 (4.00-11.30)
[2021-05-11 16:28] LABS: Ethanol (Alcohol), Blood, Med <3 mg/dL; Salicylate <1.7 mg/dL (2.8-20.0)
[2021-05-11 16:32] LABS: Acetaminophen, Random <2.0 ug/mL (10.0-30.0); CPK Creatine Kinase 88 U/L (39-308); Troponin I <0.015 ng/mL (0.000-0.040)
[2021-05-11 16:34] LABS: Albumin, Blood 2.4 g/dL (3.4-5.0); Albumin/Globulin Ratio 0.4 (0.8-1.8); Bilirubin, Total 0.9 mg/dL (0.1-1.0); Bun/Creatinine Ratio 23.8 (12.0-20.0); Calcium, Blood 8.8 mg/dL (8.5-10.1); Creatinine, Blood 1.64 mg/dL (0.60-1.20); Globulin, Blood 5.5 g/dL (2.2-4.0); Potassium, Blood 4.5 mmol/L (3.5-5.5); Total Protein, Blood 7.9 g/dL (6.4-8.2)
[2021-05-11 17:24] LABS: Source, Urine Clean Catch
[2021-05-11 17:36] LABS: Appearance, Urine Cloudy (Clear); Bilirubin, Urine Neg (Neg); Blood, Urine 5+ (Neg); Color, Urine Yellow (P-Yellow); Glucose Qualitative, Urine 4+ (Neg); Ketones, Urine 1+ (Neg); Leukocyte Esterase, Urine 3+ (Neg); Nitrite, Urine Pos (Neg); Protein, Urine 3+ (Neg); Specific Gravity, Urine 1.015 (1.003-1.022); Urobilinogen, Urine 1+ (Normal)
[2021-05-11 17:48] LABS: White Blood Cells, Urine TNTC /hpf (0-5)
[2021-05-11 17:49] LABS: Bacteria Many /hpf; Squamous Epithelial Cells Rare /hpf (Few)
[2021-05-11 17:58] LABS: U Amphetamine Screen DETECTED; U Barbituate Screen Not Detected; U Benzodiazapine Screen Not Detected; U Buprenorphine Screen Not Detected; U Cannabinoids Screen Not Detected; U Cocaine Screen Not Detected; U Methadone Screen Not Detected; U Methamphetamine Screen DETECTED; U Opiates Screen Not Detected; U Oxycodone Screen Not Detected; U Phencyclidine Screen Not Detected; U Propoxyphene Screen Not Detected
--- NOTE | 2021-05-11 23:33 | NUR ---
PT ARRIVED TO PCU AT 1905 FROM ER AND WAS SLID FROM ER GURNEY TO PCU BED WITH ASSISTANCE FROM 3 STAFF MEMBERS. PT IS A&O, AMBULATES WITH A CANE AT BASELINE. HE IS SATING ABOVE 94% VIA ROOM AIR. MONITORED VIA TELEMETRY, SHOWING SINUS TACHY AT 113. PT C/O DIFFUSE PAIN TO ABD THAT HAS BEEN ONGOING X "A FEW DAYS." MONACO IN PLACE DRAINING YELLOW URINE WITH WHITE SEDIMENT. UC SHOWS UTI. MONITORING TEMP VIA MONACO PROBE. HE REPORTS LEFT SIDED WEAKNESS RESIDUAL FROM A PAST CVA. ON LEFT FOOT, ALL 5 TOES ARE AMPUTATED. STUMP IS REDDENED. ON RIGHT FOOT, TOE #2 HAS BEEN AMPUTATED. PT DENIES CHEMICAL DVT PROPHYLAXIS, STATING, "I'VE BEEN HERE MULTIPLE TIMES AND NEVER GOT A DVT, SO I DON'T NEED THAT." PRESSURE ULCER ON LEFT HIP IS DRESSED PER WOUND CARE ORDERS. CONTACT PRECAUTIONS FOR MRSA. DNR BAND IN PLACE. WILL CONTINUE TO MONITOR.
--- NOTE | 2021-05-12 01:46 | NUR ---
0140: HR 120. TEMP 101.8, ADMINISTERED PRN TYLENOL, SEE EMAR. REPOSITIONED PT. ICE PACKS IN PLACE TO BOTH ARMPITS, COVERED WITH 1 BED SHEET PER PT REQUEST. WILL CONTINUE TO MONITOR.
[2021-05-12 04:14] LABS: BASOPHILS ABSOLUTE AUTO 0.04 K/mm3 (0.00-0.23); BASOPHILS PERCENT AUTO 0 % (0-2); EOSINOPHILS PERCENT AUTO 0 % (0-6); Hematocrit 34.2 % (37.0-53.0); Hemoglobin 11.3 g/dL (13.5-17.5); IMMATURE GRAN ABSOLUTE AUTO 0.12 K/mm3 (0.00-0.10); IMMATURE GRAN PERCENT AUTO 1 % (0-1); LYMPHOCYTES PERCENT AUTO 9 % (21-46); MONOCYTES ABSOLUTE AUTO 1.32 K/mm3 (0.16-1.47); MONOCYTES PERCENT AUTO 8 % (4-13); Mean Corpuscular HGB 26.7 pg (26.0-34.0); Mean Corpuscular Volume 81 fL (80-100); Mean Platelet Volume 11.5 fL (9.1-12.4); NEUTROPHILS ABSOLUTE AUTO 13.51 K/mm3 (1.96-9.15); NEUTROPHILS PERCENT AUTO 83 % (41-73); Platelet Count 170 K/mm3 (150-400); RDW Coefficient Variation 13.5 % (11.7-14.2); RDW Standard Deviation 39.5 fL (35.1-46.3); Red Blood Cell Count 4.24 M/mm3 (4.30-5.90); White Blood Cell Count 16.39 K/mm3 (4.00-11.30)
[2021-05-12 04:32] LABS: Bun/Creatinine Ratio 22.5 (12.0-20.0); Calcium, Blood 8.4 mg/dL (8.5-10.1); Creatinine, Blood 1.69 mg/dL (0.60-1.20)
--- NOTE | 2021-05-12 05:17 | NUR ---
SHIFT ASSESSMENT PT'S TEMP WAS INCREASED TO 102.0 TEMP MAX. ICE PACKS APPLIED, TREATED WITH TYLENOL PO, APPLIED COOLING BLANKET. TEMP REDUCED TO 99.8. PT REQUESTED PAIN MEDICATION FOR PAIN "IN MY GUTS", HE REPORTS ABD PAIN X "A FEW DAYS." MONITORED VIA TELEMETRY, SINUS TACHY 110-123. HE HAD DIFFICULTY SLEEPING, AND GETTING COMFORTABLE. AFTER RECEIVING NORCO AT 0450, PT WAS ABLE TO RELAX. JACINDA WAS ALSO DC'D AT 0450. WILL CONTINUE TO MONITOR.
--- NOTE | 2021-05-12 19:16 | NUR ---
SHIFT SUMMARY: PT CONTINUES A&OX4 T/OUT SHIFT, MAINTAINS O2 SATS >92% ON RA, SINUS TACH ON MONITOR. WOUND CARE COMPLETED PER ORDERS, CLEAN BANDAGES APPLIED. PT MEDICATED NEEDED FOR PAIN AND/OR INCREASING TEMP. INDWELLING MONACO DC'D THIS AM, PT INCONTINENT OF URINE THEN ABLE TO USE URINAL AT BEDSIDE. PT UP TO BEDSIDE CHAIR x2 TODAY WITH SBA AND FWW. REPORT GIVEN TO PRICILA RN TO ASSUME CARE OF PT.
[2021-05-13 05:01] LABS: BASOPHILS ABSOLUTE AUTO 0.03 K/mm3 (0.00-0.23); BASOPHILS PERCENT AUTO 0 % (0-2); EOSINOPHILS PERCENT AUTO 0 % (0-6); Hematocrit 32.9 % (37.0-53.0); Hemoglobin 10.9 g/dL (13.5-17.5); IMMATURE GRAN ABSOLUTE AUTO 0.11 K/mm3 (0.00-0.10); IMMATURE GRAN PERCENT AUTO 1 % (0-1); LYMPHOCYTES ABSOLUTE AUTO 1.52 K/mm3 (0.84-5.20); LYMPHOCYTES PERCENT AUTO 9 % (21-46); MONOCYTES ABSOLUTE AUTO 1.25 K/mm3 (0.16-1.47); MONOCYTES PERCENT AUTO 8 % (4-13); Mean Corpuscular HGB 26.8 pg (26.0-34.0); Mean Corpuscular HGB Conc 33.1 g/dL (31.5-36.5); Mean Corpuscular Volume 81 fL (80-100); Mean Platelet Volume 11.7 fL (9.1-12.4); NEUTROPHILS ABSOLUTE AUTO 13.47 K/mm3 (1.96-9.15); NEUTROPHILS PERCENT AUTO 82 % (41-73); Platelet Count 181 K/mm3 (150-400); RDW Coefficient Variation 13.7 % (11.7-14.2); RDW Standard Deviation 40.7 fL (35.1-46.3); Red Blood Cell Count 4.06 M/mm3 (4.30-5.90); White Blood Cell Count 16.38 K/mm3 (4.00-11.30)
[2021-05-13 05:24] LABS: Anion Gap 7 mmol/L (6-16); Blood Urea Nitrogen 30 mg/dL (8-24); Bun/Creatinine Ratio 23.3 (12.0-20.0); CO2, Blood 23 mmol/L (21-32); Calcium, Blood 8.1 mg/dL (8.5-10.1); Chloride, Blood 98 mmol/L (98-108); Creatinine, Blood 1.29 mg/dL (0.60-1.20); Glomerular Filtration Rate >60 (60-); Glucose, Blood 395 mg/dL (70-99); Potassium, Blood 4.1 mmol/L (3.5-5.5); Sodium, Blood 128 mmol/L (136-145); Vancomycin, Trough 11.5 ug/mL (5.0-10.0)
--- NOTE | 2021-05-13 05:37 | NUR ---
SHIFT SUMMARY PT RESTED WELL THROUGH THE NIGHT. ALERT AND ORIENTED - ABLE TO MAKE NEEDS KNOWN. COOPERATIVE WITH PLAN OF CARE. TELE NSR/SINUS TACH. SATS >90% ON ROOM AIR. INCONTINENT/CONTINENT AT TIMES WITH URINE. ATTEMPTED BM ON COMMODE - NO SUCCESS. TRANSFERRING BETTER AND BETTER EACH TIME. PAIN X2. FEVER IS DOWN TO 98.9, KEEPING TYLENOL UNDER 4G/DAY. DIURESING. ALL OTHER VSS. CALL LIGHT WITHIN REACH, BED IN LOWEST POSITION. WILL CONTINUE TO MONITOR.
--- NOTE | 2021-05-13 19:20 | NUR ---
SHIFT SUMMARY: NO ACUTE CHANGES T/OUT SHIFT. PT WITH A SMALL EPISODE OF C/O SOB, O2 SATS AT 89%, O2 APPLIED VIA NC AT 2 L/MIN, O2 SATS INCREASE TO 95% AND PT STATES IMPROVEMENT OF SOB BUT DOES NOT KEEP NC ON AND CONTINUES TO REMOVE IT WHEN IT IS REAPPLIED. PT CONTINUES INCONTINENT WITH ATTENS IN PLACE, ABLE TO USE URINAL ONE TIME TODAY. PT AMBULATED TO AND FROM SHOWER TODAY USING FWW AND 2 PERSON SBA, DID BECOME WEAK TOWARDS THE END, DECLINED OFFERS TO GET INTO BEDSIDE CHAIR LATER IN THE DAY. REPORT HAS BEEN GIVEN TO OMER MCNULTY TO ASSUME CARE OF PT.
--- NOTE | 2021-05-14 05:56 | NUR ---
PATIENT HAS VANCO TROUGH THIS AM, WAITING ON RESULTS AND PHARMACY TO DOSE. STATES DUE AT 0600 CURRENTLY MEDICATION IS UNAVAILABLE.
[2021-05-14 06:08] LABS: Vancomycin, Trough 17.4 ug/mL (5.0-10.0)
[2021-05-14 06:44] LABS: BASOPHILS ABSOLUTE AUTO 0.03 K/mm3 (0.00-0.23); BASOPHILS PERCENT AUTO 0 % (0-2); EOSINOPHILS ABSOLUTE AUTO 0.01 K/mm3 (0.00-0.68); EOSINOPHILS PERCENT AUTO 0 % (0-6); Hematocrit 33.8 % (37.0-53.0); IMMATURE GRAN ABSOLUTE AUTO 0.15 K/mm3 (0.00-0.10); IMMATURE GRAN PERCENT AUTO 1 % (0-1); LYMPHOCYTES ABSOLUTE AUTO 1.94 K/mm3 (0.84-5.20); LYMPHOCYTES PERCENT AUTO 13 % (21-46); MONOCYTES ABSOLUTE AUTO 1.38 K/mm3 (0.16-1.47); MONOCYTES PERCENT AUTO 9 % (4-13); Mean Corpuscular HGB Conc 32.5 g/dL (31.5-36.5); Mean Corpuscular Volume 83 fL (80-100); Mean Platelet Volume 12.1 fL (9.1-12.4); NEUTROPHILS ABSOLUTE AUTO 11.59 K/mm3 (1.96-9.15); NEUTROPHILS PERCENT AUTO 77 % (41-73); Platelet Count 170 K/mm3 (150-400); RDW Standard Deviation 42.1 fL (35.1-46.3); Red Blood Cell Count 4.08 M/mm3 (4.30-5.90)
[2021-05-14 06:57] LABS: Anion Gap 10 mmol/L (6-16); Blood Urea Nitrogen 23 mg/dL (8-24); CO2, Blood 22 mmol/L (21-32); Calcium, Blood 8.3 mg/dL (8.5-10.1); Chloride, Blood 98 mmol/L (98-108); Creatinine, Blood 1.21 mg/dL (0.60-1.20); Glomerular Filtration Rate >60 (60-); Glucose, Blood 191 mg/dL (70-99); Potassium, Blood 4.4 mmol/L (3.5-5.5); Sodium, Blood 130 mmol/L (136-145)
--- NOTE | 2021-05-14 10:57 | NUR ---
Echocardiogram completed.
--- NOTE | 2021-05-14 17:58 | NUR ---
PT REMAINS BEDBOUND AND IN PAIN WITH MOVEMENT, TREATED PER EMAR. INTERM. CONFUSION/HALUCINATIONS WHEN WAKING FROM SLEEP. MILD FEVER TREATED PER EMAR. IV LINE WNL AND RUNNING. PT INCONT. AND CONDOM CATH IN PLACE. PT EATING AND DRINKING FLUIDS AND CALLS FOR NEEDS. BED IN LOW POSITION, CALL LIGHT WITHIN REACH . STAFF WILL CONT. TO MONITOR.
[2021-05-15 07:22] LABS: BASOPHILS ABSOLUTE AUTO 0.03 K/mm3 (0.00-0.23); BASOPHILS PERCENT AUTO 0 % (0-2); EOSINOPHILS ABSOLUTE AUTO 0.06 K/mm3 (0.00-0.68); EOSINOPHILS PERCENT AUTO 1 % (0-6); Hematocrit 34.9 % (37.0-53.0); Hemoglobin 11.4 g/dL (13.5-17.5); IMMATURE GRAN ABSOLUTE AUTO 0.11 K/mm3 (0.00-0.10); IMMATURE GRAN PERCENT AUTO 1 % (0-1); LYMPHOCYTES ABSOLUTE AUTO 1.63 K/mm3 (0.84-5.20); LYMPHOCYTES PERCENT AUTO 15 % (21-46); MONOCYTES ABSOLUTE AUTO 0.82 K/mm3 (0.16-1.47); MONOCYTES PERCENT AUTO 8 % (4-13); Mean Corpuscular HGB 26.9 pg (26.0-34.0); Mean Corpuscular HGB Conc 32.7 g/dL (31.5-36.5); Mean Corpuscular Volume 82 fL (80-100); NEUTROPHILS ABSOLUTE AUTO 7.96 K/mm3 (1.96-9.15); NEUTROPHILS PERCENT AUTO 75 % (41-73); RDW Coefficient Variation 14.1 % (11.7-14.2); Red Blood Cell Count 4.24 M/mm3 (4.30-5.90); White Blood Cell Count 10.61 K/mm3 (4.00-11.30)
[2021-05-15 07:26] LABS: Anion Gap 6 mmol/L (6-16); Blood Urea Nitrogen 21 mg/dL (8-24); Bun/Creatinine Ratio 16.8 (12.0-20.0); CO2, Blood 27 mmol/L (21-32); Calcium, Blood 7.9 mg/dL (8.5-10.1); Chloride, Blood 98 mmol/L (98-108); Creatinine, Blood 1.25 mg/dL (0.60-1.20); Glomerular Filtration Rate >60 (60-); Glucose, Blood 200 mg/dL (70-99); Potassium, Blood 3.7 mmol/L (3.5-5.5); Sodium, Blood 131 mmol/L (136-145)
[2021-05-15 07:30] LABS: Mean Platelet Volume 11.6 fL (9.1-12.4); Platelet Count 177 K/mm3 (150-400)
--- NOTE | 2021-05-15 08:05 | NUR ---
HOLLY WLEPT WELL ONCE HIS PAIN WAS UNDER CONTROL. HE WAS VERY ANXIOUS UNTIL THEN. POLITE AND COOPERATIVE WITH CARE, IT WAS OBVIOUSLY A VERY DIFFICULT TASK FOR HIM TO ALLOW THE STAFF TO HELP HIM MOVE SO HE COULD SIT UP AND TAKE HIS MEDICATIONS. AT HS, PATIENT WAS GIVEN BOTH 0.5MG IV DILAUDID AND 5MG NORCO WHICH DID APPEAR TO TAKE THE EDGE OFF ENOUGH TO ALLOW THIS RN TO ASSESS HIM. LEFT HIP DRESSING IS CLEAN, DRY AND INTACT ARE HEAL DRESSINGS. BOWEL TONES HYPOACTIVE AND LUNG SOUNDS DIM THROUGHOUT WITH LOOSE SOUNDING UPPER AIRWAYS. GAVE HIM A SPECIMEN CUP INCASE HE COULD ACTUALLY GET ANY UP. HOLLY HAD SPIT A THICK ELISE SPECIMEN INTO HIS ICE CREAM AT THE START OF THE SHIFT.
--- NOTE | 2021-05-15 17:45 | NUR ---
PATIENT COBRA TRANSFERRED TO [facility] IN [place]. REPORT CALLED TO OMER CALLAHAN. BELONGINGS AND COBRA PACKET SENT WITH FOLLOW UP SPECIALIST.
== END 2021-05-15 17:44 | disposition short-term general hospital (02) | DRG 872 ==
LOC: ER 15:23 → PCU 18:01 → MEDS 18:01 → PCU 19:02 → MEDS 05-13 22:04
PROVIDERS: Emergency Medicine; Family Medicine; Internal Medicine; Nurse Practitioner Acute Care; Pharmacist; ADMIT Internal Medicine
DX: A41.01 Sepsis due to Methicillin susceptible Staphylococcus aureus (principal); N17.9 Acute kidney failure, unspecified; I69.354 Hemiplegia and hemiparesis following cerebral infarction affecting left non-dominant side; E87.1 Hypo-osmolality and hyponatremia; N41.2 Abscess of prostate; E11.69 Type 2 diabetes mellitus with other specified complication; E66.9 Obesity, unspecified; Z66 Do not resuscitate; R65.20 Severe sepsis without septic shock; R59.1 Generalized enlarged lymph nodes; F17.210 Nicotine dependence, cigarettes, uncomplicated; F15.90 Other stimulant use, unspecified, uncomplicated; Z90.49 Acquired absence of other specified parts of digestive tract; Z98.890 Other specified postprocedural states; Z79.899 Other long term (current) drug therapy; Z79.84 Long term (current) use of oral hypoglycemic drugs; Z89.432 Acquired absence of left foot; Z59.0 Homelessness; N41.9 Inflammatory disease of prostate, unspecified; L89.229 Pressure ulcer of left hip, unspecified stage; Z28.21 Immunization not carried out because of patient refusal
CPT/HCPCS: 36415; 51702; 70450; 71046; 74176; 74177; 80048; 80053; 80202; 81001; 82550; 82947; 83605; 83690; 84484; 85025; 87040; 87077; 87086; 87147; 87186; 93005; 93010; 93306; 94640; 94760; 96361-59; 96365-59; 96366; 96375-59; 97110; 97162; 97166; 97535; 99285-25; A9270; G0480; J0690; J0692; J0696; J1170; J1650; J1815; J2405; J2543; J3370; J7030; Q9967

== ENCOUNTER 2021-11-21 03:11 | Inpatient (IN) | payer OTHER ==
[~2021-11-21] VITALS: Ht 180.3 cm; Wt 98.6 kg
[2021-11-21 04:14] LABS: BASOPHILS ABSOLUTE AUTO 0.04 K/mm3 (0.00-0.23); BASOPHILS PERCENT AUTO 0 % (0-2); EOSINOPHILS ABSOLUTE AUTO 0.05 K/mm3 (0.00-0.68); EOSINOPHILS PERCENT AUTO 0 % (0-6); Hematocrit 38.9 % (37.0-53.0); Hemoglobin 13.1 g/dL (13.5-17.5); IMMATURE GRAN ABSOLUTE AUTO 0.03 K/mm3 (0.00-0.10); IMMATURE GRAN PERCENT AUTO 0 % (0-1); LYMPHOCYTES ABSOLUTE AUTO 1.79 K/mm3 (0.84-5.20); LYMPHOCYTES PERCENT AUTO 15 % (21-46); MONOCYTES ABSOLUTE AUTO 1.06 K/mm3 (0.16-1.47); MONOCYTES PERCENT AUTO 9 % (4-13); Mean Corpuscular HGB 28.2 pg (26.0-34.0); Mean Corpuscular HGB Conc 33.7 g/dL (31.5-36.5); Mean Corpuscular Volume 84 fL (80-100); Mean Platelet Volume 10.9 fL (9.1-12.4); NEUTROPHILS ABSOLUTE AUTO 8.72 K/mm3 (1.96-9.15); NEUTROPHILS PERCENT AUTO 75 % (41-73); Platelet Count 224 K/mm3 (150-400); RDW Coefficient Variation 14.3 % (11.7-14.2); RDW Standard Deviation 43.6 fL (35.1-46.3); Red Blood Cell Count 4.65 M/mm3 (4.30-5.90); White Blood Cell Count 11.69 K/mm3 (4.00-11.30)
[2021-11-21 04:33] LABS: Alanine Aminotransfer (ALT/SGP 24 U/L (12-78); Albumin, Blood 3.2 g/dL (3.4-5.0); Albumin/Globulin Ratio 0.8 (0.8-1.8); Alk Phos 150 U/L (50-136); Anion Gap 8 mmol/L (6-16); Aspartate Aminotrans (AST/SGOT 23 U/L (12-37); Bilirubin, Total 0.4 mg/dL (0.1-1.0); Blood Urea Nitrogen 22 mg/dL (8-24); Bun/Creatinine Ratio 18.5 (12.0-20.0); CO2, Blood 24 mmol/L (21-32); Calcium, Blood 8.8 mg/dL (8.5-10.1); Chloride, Blood 105 mmol/L (98-108); Creatinine, Blood 1.19 mg/dL (0.60-1.20); Globulin, Blood 4.1 g/dL (2.2-4.0); Glomerular Filtration Rate >60 (60-); Glucose, Blood 209 mg/dL (70-99); Potassium, Blood 4.2 mmol/L (3.5-5.5); Sodium, Blood 137 mmol/L (136-145); Total Protein, Blood 7.3 g/dL (6.4-8.2)
[2021-11-21 05:38] LABS: Magnesium, Blood 1.6 mg/dL (1.6-2.4)
[2021-11-21 05:49] LABS: Source, Urine Clean Catch
[2021-11-21 05:57] LABS: Influenza A, PCR NEGATIVE (NEGATIVE); Influenza B, PCR NEGATIVE (NEGATIVE); Resp Syncytial Virus, PCR NEGATIVE (NEGATIVE); SARS-Cov-2 (COVID-19) PCR, MMC NEGATIVE (NEGATIVE)
[2021-11-21 05:57] LABS: Bilirubin, Urine Neg (Neg); Blood, Urine 2+ (Neg); Glucose Qualitative, Urine 2+ (Neg); Ketones, Urine Neg (Neg); Leukocyte Esterase, Urine 3+ (Neg); Nitrite, Urine Pos (Neg); Protein, Urine 2+ (Neg); Urobilinogen, Urine NORM (Normal)
[2021-11-21 06:29] LABS: Color, Urine Yellow (P-Yellow)
[2021-11-21 06:30] LABS: Appearance, Urine Hazy (Clear)
[2021-11-21 06:33] LABS: Hyaline Casts 0-2 /lpf (0-2)
[2021-11-21 06:37] LABS: White Blood Cells, Urine 25-50 /hpf (0-5)
[2021-11-21 06:38] LABS: Bacteria Many /hpf; Red Blood Cells, Urine 0-2 /hpf (0-2)
[2021-11-21 06:39] LABS: Squamous Epithelial Cells Rare /hpf (Few)
[2021-11-21 06:48] LABS: Creatine Kinase MB 10.7 ng/mL (0.0-3.6); Creatine Kinase MB Index 2.4 (0.0-4.0)
[2021-11-21 08:09] LABS: U Amphetamine Screen DETECTED; U Barbituate Screen Not Detected; U Benzodiazapine Screen Not Detected; U Buprenorphine Screen Not Detected; U Cannabinoids Screen Not Detected; U Cocaine Screen Not Detected; U Methadone Screen Not Detected; U Methamphetamine Screen DETECTED; U Opiates Screen Not Detected; U Oxycodone Screen Not Detected; U Phencyclidine Screen Not Detected; U Propoxyphene Screen Not Detected
[2021-11-21 15:47] LABS: CHOL/HDL RATIO 4.4; Cholesterol 141 mg/dL (50-200); HDL Cholesterol 32 mg/dL (>39); LDL/HDL RATIO 2.5; Low Density Lipoprotein Chol 79 mg/dL (0-110); Triglycerides 152 mg/dL (30-160); Very Low Density Lipoprot Chol 30 mg/dL (6-32)
--- NOTE | 2021-11-21 18:34 | NUR ---
SHIFT SUMMARY PATIENT RESTING IN BED. PATIENT ADMITTED FROM ER FOR FROSTBITE. ADMITTING DOCUMENTATION COMPLETED AND PATIENT ORIENTED TO ROOM. PATIENT C/O PAIN IN LEFT FOOT, RIGHT KNEE, AND LEFT SHOULDER. MEDICATED PER JAN. PATIENT HAS FROSTBITE ON LEFT FOOT THAT IS DARK PUPLE/BLACK TO RED. PULSE FOUND WITH DOPPLER. PATIENT HAS TWO PUNCTURE WOUNDS ON LEFT KNEE, UNSURE OF HOW HE GOT THEM STATING HE FALLS ALOT. TWO PRESSURE SORES ON LEFT HIP/BUTTOCKS. SCROTUM RED AMD EXCORIATED. PATIENT VS STABLE. WILL CONTINUE TO MONITOR.
--- NOTE | 2021-11-22 03:30 | NUR ---
SHIFT SUMMARY HOLLY: HOLLY COMPLAINED OF INTENSE PAIN IN LEFT ANKLE, LEFT SHOULDER,RIGHT KNEE ( NOT WOUND PAIN). HE RECEIVED TRAMADOL AND TYLENOL. HE IS STILL TACHYCARDIC. TELE ALERTED ME THAT HIS HR HAD BRIEFLY GONE INTO THE 130'S TWICE. HE IS STILL NSR. HIS TEMPERATURE WAS SLIGHTLY ELEVATED THIS AM, WE WILL CHECK IT AGAIN BEFORE SHIFT CHANGE. HE WAS FOUND TO BE POSITIVE FOR GRAM POCITIVE COCCI PER LAB CRITICAL RESULT REPORT.
[2021-11-22 05:02] LABS: BASOPHILS ABSOLUTE AUTO 0.03 K/mm3 (0.00-0.23); BASOPHILS PERCENT AUTO 0 % (0-2); EOSINOPHILS ABSOLUTE AUTO 0.03 K/mm3 (0.00-0.68); EOSINOPHILS PERCENT AUTO 0 % (0-6); Hemoglobin 11.4 g/dL (13.5-17.5); IMMATURE GRAN ABSOLUTE AUTO 0.01 K/mm3 (0.00-0.10); IMMATURE GRAN PERCENT AUTO 0 % (0-1); LYMPHOCYTES ABSOLUTE AUTO 1.81 K/mm3 (0.84-5.20); LYMPHOCYTES PERCENT AUTO 26 % (21-46); MONOCYTES ABSOLUTE AUTO 0.83 K/mm3 (0.16-1.47); MONOCYTES PERCENT AUTO 12 % (4-13); Mean Corpuscular HGB 28.2 pg (26.0-34.0); Mean Corpuscular HGB Conc 32.6 g/dL (31.5-36.5); Mean Corpuscular Volume 87 fL (80-100); Mean Platelet Volume 10.8 fL (9.1-12.4); NEUTROPHILS ABSOLUTE AUTO 4.18 K/mm3 (1.96-9.15); NEUTROPHILS PERCENT AUTO 61 % (41-73); Platelet Count 181 K/mm3 (150-400); RDW Coefficient Variation 14.5 % (11.7-14.2); RDW Standard Deviation 45.8 fL (35.1-46.3); Red Blood Cell Count 4.04 M/mm3 (4.30-5.90); White Blood Cell Count 6.89 K/mm3 (4.00-11.30)
[2021-11-22 06:11] LABS: Bun/Creatinine Ratio 17.8 (12.0-20.0); Calcium, Blood 8.3 mg/dL (8.5-10.1); Creatinine, Blood 1.46 mg/dL (0.60-1.20); Potassium, Blood 5.2 mmol/L (3.5-5.5)
--- NOTE | 2021-11-22 06:48 | NUR ---
HOLLY TEMP HAS IMPROVED (98.3 FROM 101) AT 6:48. CONTINUE TO MONITOR
--- NOTE | 2021-11-22 18:37 | NUR ---
END OF SHIFT SUMMARY: PATIENT SLEPT MOST OF THE DAY. PATIENT REPORTS PAIN IN HIS ANKLE, KNEE AND SHOULDER. PATIENT REPORTS NUMBNESS IN LEFT LOWER EXTREMITY AT BASELINE. MONACO DISCONTINUED IN THE AM. PATIENT ABLE TO VOID WITHOUT DIFFICULTY IN THE AFTERNOON. PATIENT GREATLY APPRECIATED SHOWER. PATIENT HAS AN EXCELLENT APPETITE. PATIENT REPORTS FEELING TIRED.
--- NOTE | 2021-11-23 04:54 | NUR ---
SHIFT SUMMARY HOLLY: HOLLY'S TEMPERATURE WAS SLIGHLY ELEVATED AT THE BEGINNING OF THE SHIFT. HE WAS ADMINISTERED TYLENOL AND TRAMADOL FOR HIS PAIN OF "9". HE SLEPT MOST OF THE NIGHT. TEMPERATURE THIS MORNING WAS 98.5. CONTINUE TO MONITOR PAIN.
--- NOTE | 2021-11-23 08:00 | NUR ---
pt laying in bed eating breakfast, a/ox3, flat affect, refusing some medications, states he slept on and off, lungs are course t/o, resp even and unlabored, on ra, no cough noted, hrr, tele in place running sr to st, b/p a bit soft this am did not meet parameters for metoprolol, iv x2 to r and l fa's, ottoniel area a bit red, voids via urinal, part of left foot amputated, purplish in color, melody tristan, call light in reach.
--- NOTE | 2021-11-23 18:13 | NUR ---
pt complaining of foot pain, states it feels like it's freezing. medicated ith tramadol and tylenol. no further changes this shift. call light in reach.
--- NOTE | 2021-11-23 18:25 | NUR ---
pt requested heating pad for low back, medicated with 25mcg fentanyl for his foot pain, as the tramadol isn't providing any relief. resting quietly at this time. call light in reach.
--- NOTE | 2021-11-24 05:05 | NUR ---
PATIENT WAS ALERT AND ORIENTED X4, STABLE VITAL SIGNS AND NO ACUTE CHANGES. PATIENT COMPLAINED OF PAIN AND HAD A TEMP OF 100.4 BUT WAS TREATED WITH TYLENOL. CALL LIGHT WITH IN REACH AND BED DOWN TO THE LOWEST POSITION. WILL CONTINUE TO MONITOR UNTIL HAND OFF.
[2021-11-24 05:28] LABS: BASOPHILS ABSOLUTE AUTO 0.04 K/mm3 (0.00-0.23); BASOPHILS PERCENT AUTO 1 % (0-2); EOSINOPHILS ABSOLUTE AUTO 0.12 K/mm3 (0.00-0.68); EOSINOPHILS PERCENT AUTO 2 % (0-6); Hematocrit 35.4 % (37.0-53.0); Hemoglobin 11.6 g/dL (13.5-17.5); IMMATURE GRAN ABSOLUTE AUTO 0.01 K/mm3 (0.00-0.10); IMMATURE GRAN PERCENT AUTO 0 % (0-1); LYMPHOCYTES ABSOLUTE AUTO 2.29 K/mm3 (0.84-5.20); LYMPHOCYTES PERCENT AUTO 35 % (21-46); MONOCYTES ABSOLUTE AUTO 0.74 K/mm3 (0.16-1.47); MONOCYTES PERCENT AUTO 11 % (4-13); Mean Corpuscular HGB Conc 32.8 g/dL (31.5-36.5); Mean Corpuscular Volume 86 fL (80-100); Mean Platelet Volume 10.9 fL (9.1-12.4); NEUTROPHILS ABSOLUTE AUTO 3.34 K/mm3 (1.96-9.15); NEUTROPHILS PERCENT AUTO 51 % (41-73); Platelet Count 215 K/mm3 (150-400); RDW Standard Deviation 43.8 fL (35.1-46.3); Red Blood Cell Count 4.14 M/mm3 (4.30-5.90); White Blood Cell Count 6.54 K/mm3 (4.00-11.30)
[2021-11-24 06:03] LABS: Albumin, Blood 2.4 g/dL (3.4-5.0); Anion Gap 7 mmol/L (6-16); Blood Urea Nitrogen 18 mg/dL (8-24); Bun/Creatinine Ratio 15.3 (12.0-20.0); CO2, Blood 25 mmol/L (21-32); Calcium, Blood 8.9 mg/dL (8.5-10.1); Chloride, Blood 106 mmol/L (98-108); Creatinine, Blood 1.18 mg/dL (0.60-1.20); Glomerular Filtration Rate >60 (60-); Glucose, Blood 154 mg/dL (70-99); Potassium, Blood 4.7 mmol/L (3.5-5.5); Sodium, Blood 138 mmol/L (136-145)
--- NOTE | 2021-11-24 09:20 | NUR ---
Pt laying in bed, wakes easily, states he didn't sleep well last night, a/ox3, cooperative with care, follows commands well, states leg pain is about the same, lungs are dim with some courseness, on r/a, resp even and unlabored, no cough noted, hrr, tele in place running sr per monitor, see strip, trace edema noted to b/l le, ppp via doppler, ivx2 to r and l fa's, sites are clear and patent, btx4, abd large soft nontender, voids via urinal clear yellow, skin has wound to left hip with dressing in place, left food has toes amputated, purplish in color, states the left one hurts like it's freezing, melody tristan, call light in reach.
--- NOTE | 2021-11-24 12:23 | NUR ---
pt resting in bed, no complaints, did take insulin to cover cbg of 254, no further needs, call light in reach.
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
--- NOTE | 2021-11-24 18:21 | NUR ---
no acute changes this shift, offered to get him to a chair for meals, he didn't want to do that yet. call light in reach.
--- NOTE | 2021-11-25 05:17 | NUR ---
PATIENT WAS ALERT AND ORIENTED X4, STABLE VITAL SIGNS, NO ACUTE CHANGES, PATIENT COMPALINED OF PAIN AND ASK FOR A SLEEP AID SO PATIENT WAS GIVEN FENTANYL AND MELATONIN RESPESTIVELY. PATIENT SLEPT FOR MOST OF THE NIGHT. CALL LIGHT WITHIN REACH AND BED DOWN TO THE LOWEST POSITION.
--- NOTE | 2021-11-25 07:29 | NUR ---
ASSUMED CARE: PT RESTING QUIETLY, NSR ON TELE. NO ACUTE NEEDS AT THIS TIME.
[2021-11-25] MEDS ORDERED: Nicoderm Cq1 EAC1 TOP (13:06)
[2021-11-25] MEDS ORDERED: METO25 PO (13:06)
[2021-11-25] MEDS ORDERED: METF500 PO (13:07)
[2021-11-25] MEDS ORDERED: CEFUROXIME SOD1.5 GM PO (13:07)
--- NOTE | 2021-11-25 16:13 | NUR ---
[facility] PROVIDED PT WITH CLOTHES, BOOTS, JACKET AND A TAXI RIDE DUE TO PT SAYING HE [place] LIKE [place] AND DOESN'T WANT TO GO THERE. IV'S DC'D WNL. INSTRUCTED PT ON MEDICATIONS AND SENT HIS MEDS TO [facility]. PT STATES HE HAS A HOMELESS ADVOCATE TRYING TO SET HIM UP WITH A PCP. DENIED FURTHER NEEDS OR CONCERNS.
== END 2021-11-25 16:14 | disposition home or self-care (01) | DRG 872 ==
LOC: ER 03:11 → ERHOLD 07:30 → MEDS 07:30
PROVIDERS: Emergency Medicine; Student in an Organized Health Care Education/Training Program; ADMIT Family Medicine
PROC: 3E0234Z Introduction of Serum, Toxoid and Vaccine into Muscle, Percutaneous Approach (ICD-10-PCS; principal; 2021-11-21)
DX: A41.51 Sepsis due to Escherichia coli [E. coli] (principal); T33.99XA Superficial frostbite of other sites, initial encounter; L03.116 Cellulitis of left lower limb; N39.0 Urinary tract infection, site not specified; M62.82 Rhabdomyolysis; Z20.822 Contact with and (suspected) exposure to COVID-19; X31.XXXA Exposure to excessive natural cold, initial encounter; I73.9 Peripheral vascular disease, unspecified; Z59.00 Homelessness unspecified; Z86.73 Personal history of transient ischemic attack (TIA), and cerebral infarction without residual deficits; Z89.432 Acquired absence of left foot; Z66 Do not resuscitate; F17.210 Nicotine dependence, cigarettes, uncomplicated; E11.51 Type 2 diabetes mellitus with diabetic peripheral angiopathy without gangrene; F15.10 Other stimulant abuse, uncomplicated; Z53.29 Procedure and treatment not carried out because of patient's decision for other reasons; I12.9 Hypertensive chronic kidney disease with stage 1 through stage 4 chronic kidney disease, or unspecified chronic kidney disease; E11.22 Type 2 diabetes mellitus with diabetic chronic kidney disease; Z23 Encounter for immunization; L98.499 Non-pressure chronic ulcer of skin of other sites with unspecified severity; N18.30 Chronic kidney disease, stage 3 unspecified
CPT/HCPCS: 0241U; 36415; 51701; 51702; 71045; 80048; 80053; 80061; 80069; 81001; 82550; 82553; 82947; 83036; 83605; 83735; 85025; 87040; 87077; 87086; 87186; 90471; 90714; 93005; 93010; 93926; 93971; 96365; 96367; 96375; 97110; 97116; 97162; 97166; 97530; 97535; 99285-25; A9270; J0690; J0696; J1650; J1815; J1885; J3010; J3475; J7120

== ENCOUNTER 2021-12-12 21:31 | Emergency (ER) | payer OTHER ==
[~2021-12-12] VITALS: Ht 180.3 cm; Wt 108.9 kg
[~2021-12-12 21:31] MED LIST changes: +CEFUROXIME SOD1.5 GM PO; +Nicoderm Cq1 EAC1 TOP
[2021-12-12 23:06] LABS: BASOPHILS ABSOLUTE AUTO 0.03 K/mm3 (0.00-0.23); BASOPHILS PERCENT AUTO 0 % (0-2); EOSINOPHILS ABSOLUTE AUTO 0.12 K/mm3 (0.00-0.68); EOSINOPHILS PERCENT AUTO 2 % (0-6); Hematocrit 35.9 % (37.0-53.0); Hemoglobin 11.9 g/dL (13.5-17.5); IMMATURE GRAN ABSOLUTE AUTO 0.02 K/mm3 (0.00-0.10); IMMATURE GRAN PERCENT AUTO 0 % (0-1); LYMPHOCYTES PERCENT AUTO 27 % (21-46); MONOCYTES ABSOLUTE AUTO 0.81 K/mm3 (0.16-1.47); MONOCYTES PERCENT AUTO 11 % (4-13); Mean Corpuscular HGB 27.9 pg (26.0-34.0); Mean Corpuscular HGB Conc 33.1 g/dL (31.5-36.5); Mean Corpuscular Volume 84 fL (80-100); Mean Platelet Volume 10.7 fL (9.1-12.4); NEUTROPHILS ABSOLUTE AUTO 4.51 K/mm3 (1.96-9.15); NEUTROPHILS PERCENT AUTO 60 % (41-73); Platelet Count 253 K/mm3 (150-400); RDW Coefficient Variation 13.5 % (11.7-14.2); RDW Standard Deviation 41.8 fL (35.1-46.3); Red Blood Cell Count 4.26 M/mm3 (4.30-5.90); White Blood Cell Count 7.49 K/mm3 (4.00-11.30)
[2021-12-12 23:21] LABS: Bun/Creatinine Ratio 31.3 (12.0-20.0); Calcium, Blood 8.7 mg/dL (8.5-10.1); Creatinine, Blood 1.47 mg/dL (0.60-1.20); Potassium, Blood 4.3 mmol/L (3.5-5.5)
[2021-12-12] MEDS ORDERED: CEPH500 PO (23:36)
== END 2021-12-12 23:58 ==
LOC: ER 21:31
PROVIDERS: Emergency Medicine
DX: L03.116 Cellulitis of left lower limb (principal); F17.200 Nicotine dependence, unspecified, uncomplicated; E11.621 Type 2 diabetes mellitus with foot ulcer; I10 Essential (primary) hypertension; Z86.73 Personal history of transient ischemic attack (TIA), and cerebral infarction without residual deficits; Z79.899 Other long term (current) drug therapy; Z79.84 Long term (current) use of oral hypoglycemic drugs
CPT/HCPCS: 73630; 80048; 85025; 99284-25; A9270

== ENCOUNTER 2022-01-02 21:06 | Inpatient (IN) | payer OTHER ==
[~2022-01-02] VITALS: Ht 175.3 cm; Wt 104.3 kg
[2022-01-02 22:12] LABS: BASOPHILS ABSOLUTE AUTO 0.04 K/mm3 (0.00-0.23); BASOPHILS PERCENT AUTO 1 % (0-2); EOSINOPHILS ABSOLUTE AUTO 0.07 K/mm3 (0.00-0.68); EOSINOPHILS PERCENT AUTO 1 % (0-6); Hematocrit 44.1 % (37.0-53.0); Hemoglobin 14.1 g/dL (13.5-17.5); IMMATURE GRAN ABSOLUTE AUTO 0.03 K/mm3 (0.00-0.10); IMMATURE GRAN PERCENT AUTO 0 % (0-1); LYMPHOCYTES ABSOLUTE AUTO 1.56 K/mm3 (0.84-5.20); LYMPHOCYTES PERCENT AUTO 20 % (21-46); MONOCYTES ABSOLUTE AUTO 0.48 K/mm3 (0.16-1.47); MONOCYTES PERCENT AUTO 6 % (4-13); Mean Corpuscular Volume 88 fL (80-100); Mean Platelet Volume 9.7 fL (9.1-12.4); NEUTROPHILS ABSOLUTE AUTO 5.45 K/mm3 (1.96-9.15); NEUTROPHILS PERCENT AUTO 72 % (41-73); Platelet Count 327 K/mm3 (150-400); RDW Coefficient Variation 13.9 % (11.7-14.2); RDW Standard Deviation 43.4 fL (35.1-46.3); Red Blood Cell Count 5.04 M/mm3 (4.30-5.90); White Blood Cell Count 7.63 K/mm3 (4.00-11.30)
[2022-01-02 22:42] LABS: Albumin, Blood 3.2 g/dL (3.4-5.0); Albumin/Globulin Ratio 0.7 (0.8-1.8); Bilirubin, Total 0.2 mg/dL (0.1-1.0); Bun/Creatinine Ratio 16.6 (12.0-20.0); Calcium, Blood 8.9 mg/dL (8.5-10.1); Creatinine, Blood 1.51 mg/dL (0.60-1.20); Globulin, Blood 4.8 g/dL (2.2-4.0); Potassium, Blood 5.2 mmol/L (3.5-5.5)
[2022-01-03] MEDS ORDERED: Glucophage 500 mg PO (05:39)
--- NOTE | 2022-01-03 13:51 | NUR ---
PT TRANSFERED TO UNIT FROM ER PT ARRIVED W/ NS @ 100/HR. PT ARRIVED VIA WC, ABLE TO TRANSFER SAFELY TO BED 1X SBA. BED BATH PROVIDED BY PAUL LOVE UPON ARRIVAL.
--- NOTE | 2022-01-04 03:46 | NUR ---
SHIFT SUMMARY PT ER ADMIT THIS SHIFT FOR CELLULITIS OF LEFT FOOT. IV ANTIBIOTICS INFUSED THIS SHIFT ORDERED. PT ALSO HAS TRANSMETATARSAL AMPUTATION TO RIGHT FOOT, WOUND PRESENT WITH FOUL ODOR. PICTURES TAKEN AND WOUND REDRESSED. PT WITH POOR HYGIENE. PT MEDICATED FOR PAIN WITH TYLENOL PRN. PT HAS SLEPT MOST OF THE NIGHT, OCCASIONALLY REQUESTS SNACKS. VITALS STABLE. BED IN LOWEST POSITION, CALL LIGHT WITHIN REACH.
[2022-01-04 05:55] LABS: BASOPHILS ABSOLUTE AUTO 0.06 K/mm3 (0.00-0.23); BASOPHILS PERCENT AUTO 1 % (0-2); EOSINOPHILS ABSOLUTE AUTO 0.15 K/mm3 (0.00-0.68); EOSINOPHILS PERCENT AUTO 2 % (0-6); Hematocrit 39.1 % (37.0-53.0); Hemoglobin 12.3 g/dL (13.5-17.5); IMMATURE GRAN ABSOLUTE AUTO 0.01 K/mm3 (0.00-0.10); IMMATURE GRAN PERCENT AUTO 0 % (0-1); LYMPHOCYTES ABSOLUTE AUTO 2.55 K/mm3 (0.84-5.20); LYMPHOCYTES PERCENT AUTO 40 % (21-46); MONOCYTES ABSOLUTE AUTO 0.67 K/mm3 (0.16-1.47); MONOCYTES PERCENT AUTO 10 % (4-13); Mean Corpuscular HGB 27.7 pg (26.0-34.0); Mean Corpuscular HGB Conc 31.5 g/dL (31.5-36.5); Mean Corpuscular Volume 88 fL (80-100); Mean Platelet Volume 10.1 fL (9.1-12.4); NEUTROPHILS PERCENT AUTO 47 % (41-73); Platelet Count 278 K/mm3 (150-400); Red Blood Cell Count 4.44 M/mm3 (4.30-5.90); White Blood Cell Count 6.44 K/mm3 (4.00-11.30)
[2022-01-04 06:26] LABS: Bun/Creatinine Ratio 21.9 (12.0-20.0); Calcium, Blood 8.6 mg/dL (8.5-10.1); Creatinine, Blood 1.28 mg/dL (0.60-1.20); Potassium, Blood 4.9 mmol/L (3.5-5.5)
--- NOTE | 2022-01-04 18:32 | NUR ---
SHIFT SUMMARY PT A&O AND IN PLEASENT MOOD T/O SHIFT. PT MEDICATED PER EMAR FOR PAIN, DR. BAILEY ADDED AN ADDITIONAL TORODOL FOR BREAKTHROUGH PAIN. PT RESTED COMFORTABLY T/O SHIFT W/ LLE ELEVATED. TELE AND CONT. OX DC'ED PER TOLERATING PO INTAKE WELL. VSS. CALL LIGHT W/IN REACH.
--- NOTE | 2022-01-05 04:44 | NUR ---
SHIFT SUMMARY NO ACUTE CHANGES TO REPORT THIS SHIFT. PT MEDICATED FOR LEFT FOOT PAIN PRN PER ORDERS. TYLENOL AND TORADOL PROVIDING EFFECTIVE PAIN RELIEF. DRESSING INTACT TO LEFT FOOT, CLEAN AND DRY. VITAL ARE STABLE. IV ANTIBIOTICS PER ORDERS. BED IN LOWEST POSITION, CALL LIGHT WITHIN REACH.
--- NOTE | 2022-01-05 17:42 | NUR ---
SHIFT SUMMARY PATIENT RESTING IN BED. A&O X4. NONCOMPLIANT WITH MEDICATIONS AND CARE. PATIENT STAYS IN BED AND DOES NOT WANT TO GET OUT OF BED. PATIENT REFUSING LOVENOX AND INSULIN. PATIENT REQUESTS MULTIPLE CUPS OF COFFEE AND SNACKS T/O SHIFT AND REFUSES TO DRINK WATER. DRESSING CHANGE DONE ON LEFT FOOT AND PHOTOS DONE. C/O PAIN LEFT FOOT AND BACK. MEDICATED PER JAN. BED IN LOW POSITION WITH CALL LIGHT IN REACH. WILL CONTINUE TO MONITOR.
--- NOTE | 2022-01-06 03:19 | NUR ---
BREAKER ENGINEER SUMMARY PATIENT HAD A FAIR SHIFT. ASSESSMENT DONE AND RECORDED. V/S ARE STABLE. HE AHD HIS PAIN MED NEEDED. NEW IV ACCESS ESTABLISHED. NO OTHER COMPLAINTS. WILL CONTINUE TO MONITOR HIM.
[2022-01-06 05:19] LABS: BASOPHILS ABSOLUTE AUTO 0.07 K/mm3 (0.00-0.23); BASOPHILS PERCENT AUTO 1 % (0-2); EOSINOPHILS ABSOLUTE AUTO 0.14 K/mm3 (0.00-0.68); EOSINOPHILS PERCENT AUTO 3 % (0-6); Hematocrit 42.4 % (37.0-53.0); Hemoglobin 13.5 g/dL (13.5-17.5); IMMATURE GRAN ABSOLUTE AUTO 0.01 K/mm3 (0.00-0.10); IMMATURE GRAN PERCENT AUTO 0 % (0-1); LYMPHOCYTES ABSOLUTE AUTO 1.89 K/mm3 (0.84-5.20); LYMPHOCYTES PERCENT AUTO 36 % (21-46); MONOCYTES ABSOLUTE AUTO 0.46 K/mm3 (0.16-1.47); MONOCYTES PERCENT AUTO 9 % (4-13); Mean Corpuscular HGB 27.7 pg (26.0-34.0); Mean Corpuscular HGB Conc 31.8 g/dL (31.5-36.5); Mean Corpuscular Volume 87 fL (80-100); Mean Platelet Volume 9.6 fL (9.1-12.4); NEUTROPHILS ABSOLUTE AUTO 2.73 K/mm3 (1.96-9.15); NEUTROPHILS PERCENT AUTO 52 % (41-73); Platelet Count 292 K/mm3 (150-400); RDW Coefficient Variation 13.5 % (11.7-14.2); RDW Standard Deviation 42.5 fL (35.1-46.3); Red Blood Cell Count 4.88 M/mm3 (4.30-5.90)
[2022-01-06 05:36] LABS: Bun/Creatinine Ratio 24.3 (12.0-20.0); Calcium, Blood 9.1 mg/dL (8.5-10.1); Creatinine, Blood 1.44 mg/dL (0.60-1.20); Potassium, Blood 5.4 mmol/L (3.5-5.5)
--- NOTE | 2022-01-06 09:49 | NUR ---
MESSAGE LEFT FOR AME IN CARE MANAGEMENT ABOUT NEED TO SEE IF DRESSING CHANGES COULD BE SET UP AT THE WOUND CLINIC FOR PATIENT TO D/C TODAY.
--- NOTE | 2022-01-06 17:01 | NUR ---
MEDICATED FOR C/O FOOT/BACK PAIN PER E-JAN. IV ABX CONTINUE. TOLERATED PO FOOD, FLUIDS AND SNACKS. VOIDS PER URINAL. ATTENDS FOR STOOL. PATIENT IS HOMELESS. HE WILL BE DISCHARGED WHEN OUTPATIENT WOUND CLINIC DRESSING CHANGES CAN BE COORDINATED. AWAKE AND ALERT. SALINE LOCK INTACT. PATIENT IS A DNR. WILL MONITOR.
--- NOTE | 2022-01-06 17:14 | NUR ---
VOICEMAIL LEFT FOR DR. WAHL AT [phone] FOR ADMIT ORDERS.
--- NOTE | 2022-01-07 05:41 | NUR ---
VOIP NETWORK TECHNICIAN SUMMARY PATIEINT HAD A FAIR SHIFT. ALERT AND ORIENTED. COOPERATIVE WITH CARE. ASSESSMENT DONE AND RECORDED. DRESSING ON LEFT FOOT WAS CLEANSED AND DRESSED. V/S WERE STABLE. NO EVENTS OVERNIGHT. WILL CONTINUE TO MONITOR HIM.
--- NOTE | 2022-01-07 16:46 | NUR ---
SHIFT SUMMARY PT A/O X4; PLEASANT AND COOPERATIVE WITH CARE. C/O LOW BACK PAIN AND TREATED PER EMR. GAUZE DRESSING TO LEFT FOOT AMPUTATION SITE CDI. PT RECEIVING IV ANTIBIOTICS. VSS. AWAITING PLACEMENT. WILL REPORT TO MIESHA TELLO.
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
--- NOTE | 2022-01-08 03:01 | NUR ---
SUMMARY: PT A/OX4, PLEASANT AND COOPERATIVE W/CARE AND CALLS APPROPRIATELY TO SPECIFY NEEDS. HE C/O L.FOOT PAIN S/P "DOC CUTTING ON IT". LEATHER SCRUBBER DEBRADED L.FOOT AMPUTATION SITE W/GAUZE+SAL DX REMAINING C/D/I. TYLENOL PROVIDED FOR TOLERABLE RELIEF OF PAIN AND MELATONIN RECIEVED PER PT REQUEST FOR SLEEP. IV ABX ADMIN PER EMAR. NO ACUTE CHANGES, VSS/AFEBRILE. WCTM AND REPORT TO DAY RN.
[2022-01-08] MEDS ORDERED: ACET325 PO (12:37)
[2022-01-08] MEDS ORDERED: VISBIOME 112.51 EACH PO (12:38)
[2022-01-08] MEDS ORDERED: CEPH500 PO (12:38)
[2022-01-08] MEDS ORDERED: METF500 PO (12:38)
--- NOTE | 2022-01-08 17:06 | NUR ---
SHIFT SUMMARY PT A/O X4; PLEASANT AND COOPERATIVE WITH CARE. PT SHOWERED TODAY AND DRESSING CHANGED ON L FOOT. CARE GRACE YU COORDINATED DISCHARGE WHERE PT IS TO MEET TRANSPORTATION AT THE [facility] ON WEDNESDAY TO BE TAKEN TO OUTPATIENT WOUND CLINIC FOR WOUND CARE. TRANSPORTATION ARRANGED FOR PATIENT TO BE TAKEN TO [facility] THIS EVENING. VSS.
== END 2022-01-08 17:57 | disposition home or self-care (01) | DRG 571 ==
LOC: ER 21:06 → MEDS 01-03 05:41 → ERHOLD 01-03 05:41 → MEDS 01-03 13:15
PROVIDERS: Internal Medicine; Physician Assistant; ADMIT Family Medicine
PROC: 0JBR0ZZ Excision of Left Foot Subcutaneous Tissue and Fascia, Open Approach (ICD-10-PCS; principal; 2022-01-08)
DX: L03.116 Cellulitis of left lower limb (principal); E87.2 Acidosis; N17.9 Acute kidney failure, unspecified; F15.10 Other stimulant abuse, uncomplicated; Z66 Do not resuscitate; F17.200 Nicotine dependence, unspecified, uncomplicated; I10 Essential (primary) hypertension; L97.529 Non-pressure chronic ulcer of other part of left foot with unspecified severity; E11.621 Type 2 diabetes mellitus with foot ulcer; Z53.29 Procedure and treatment not carried out because of patient's decision for other reasons; Z71.6 Tobacco abuse counseling; Z71.51 Drug abuse counseling and surveillance of drug abuser; Z86.14 Personal history of Methicillin resistant Staphylococcus aureus infection; Z86.73 Personal history of transient ischemic attack (TIA), and cerebral infarction without residual deficits; Z90.49 Acquired absence of other specified parts of digestive tract; Z89.432 Acquired absence of left foot; Z59.00 Homelessness unspecified; Z79.2 Long term (current) use of antibiotics; Z79.4 Long term (current) use of insulin; Z79.899 Other long term (current) drug therapy
CPT/HCPCS: 36415; 72157; 72158; 73630; 80048; 80053; 82947; 83605; 85025; 85651; 86141; 87040; 93005; 93010; 96365; 96375; 99285-25; A9270; A9579; J0690; J1650; J1885; J7030

== ENCOUNTER 2022-01-28 10:55 | Day surgery (SDC) | payer OTHER ==
[~2022-01-28 10:55] MED LIST changes: +ACET325 PO; +Glucophage 500 mg PO; +VISBIOME 112.51 EACH PO
== END 2022-01-28 23:06 | disposition home or self-care (01) ==
LOC: WOUND 10:55
DX: E11.621 Type 2 diabetes mellitus with foot ulcer (principal); L97.525 Non-pressure chronic ulcer of other part of left foot with muscle involvement without evidence of necrosis; E11.59 Type 2 diabetes mellitus with other circulatory complications; E11.42 Type 2 diabetes mellitus with diabetic polyneuropathy; I10 Essential (primary) hypertension; I25.10 Atherosclerotic heart disease of native coronary artery without angina pectoris; F17.210 Nicotine dependence, cigarettes, uncomplicated; Z59.01 Sheltered homelessness; J44.9 Chronic obstructive pulmonary disease, unspecified
CPT/HCPCS: A9270; G0463

== ENCOUNTER 2022-01-30 00:46 | Day surgery (SDC) | payer OTHER | END 2022-01-30 23:59 | disposition home or self-care (01) | LOC: WOUND 00:46 | DX: E11.621 Type 2 diabetes mellitus with foot ulcer (principal); L97.525 Non-pressure chronic ulcer of other part of left foot with muscle involvement without evidence of necrosis; E11.59 Type 2 diabetes mellitus with other circulatory complications | CPT/HCPCS: G0463 ==

== ENCOUNTER 2022-02-04 01:14 | Day surgery (SDC) | payer OTHER | END 2022-02-04 23:23 | disposition home or self-care (01) | LOC: WOUND 01:14 | DX: E11.621 Type 2 diabetes mellitus with foot ulcer (principal); L97.525 Non-pressure chronic ulcer of other part of left foot with muscle involvement without evidence of necrosis; E11.59 Type 2 diabetes mellitus with other circulatory complications; E11.42 Type 2 diabetes mellitus with diabetic polyneuropathy; I25.2 Old myocardial infarction; J45.909 Unspecified asthma, uncomplicated; I10 Essential (primary) hypertension; I25.10 Atherosclerotic heart disease of native coronary artery without angina pectoris; Z59.01 Sheltered homelessness | CPT/HCPCS: A9270 ==

== ENCOUNTER 2022-02-18 00:23 | Day surgery (SDC) | payer OTHER | END 2022-02-18 23:10 | disposition home or self-care (01) | LOC: WOUND 00:23 | DX: E11.621 Type 2 diabetes mellitus with foot ulcer (principal); L97.525 Non-pressure chronic ulcer of other part of left foot with muscle involvement without evidence of necrosis; T81.31XA Disruption of external operation (surgical) wound, not elsewhere classified, initial encounter; E11.59 Type 2 diabetes mellitus with other circulatory complications; E11.42 Type 2 diabetes mellitus with diabetic polyneuropathy; I10 Essential (primary) hypertension; I25.10 Atherosclerotic heart disease of native coronary artery without angina pectoris; J45.909 Unspecified asthma, uncomplicated; Z59.01 Sheltered homelessness | CPT/HCPCS: G0463 ==

== ENCOUNTER 2022-02-25 01:44 | Day surgery (SDC) | payer OTHER | END 2022-02-25 23:24 | disposition home or self-care (01) | LOC: WOUND 01:44 | DX: T87.81 Dehiscence of amputation stump (principal); E11.621 Type 2 diabetes mellitus with foot ulcer; L97.525 Non-pressure chronic ulcer of other part of left foot with muscle involvement without evidence of necrosis; Y83.8 Other surgical procedures as the cause of abnormal reaction of the patient, or of later complication, without mention of misadventure at the time of the procedure; E11.42 Type 2 diabetes mellitus with diabetic polyneuropathy; I25.2 Old myocardial infarction; J45.909 Unspecified asthma, uncomplicated; I10 Essential (primary) hypertension; I25.10 Atherosclerotic heart disease of native coronary artery without angina pectoris; M21.372 Foot drop, left foot; Z59.00 Homelessness unspecified | CPT/HCPCS: A9270 ==

== ENCOUNTER 2022-03-11 03:08 | Day surgery (SDC) | payer OTHER | END 2022-03-11 23:24 | disposition home or self-care (01) | LOC: WOUND 03:08 | DX: T87.89 Other complications of amputation stump (principal); E11.621 Type 2 diabetes mellitus with foot ulcer; L97.522 Non-pressure chronic ulcer of other part of left foot with fat layer exposed; Y83.8 Other surgical procedures as the cause of abnormal reaction of the patient, or of later complication, without mention of misadventure at the time of the procedure; Z59.00 Homelessness unspecified; E11.42 Type 2 diabetes mellitus with diabetic polyneuropathy; I25.2 Old myocardial infarction; E78.5 Hyperlipidemia, unspecified; J45.909 Unspecified asthma, uncomplicated; I10 Essential (primary) hypertension; I25.10 Atherosclerotic heart disease of native coronary artery without angina pectoris | CPT/HCPCS: A9270; G0463 ==

== ENCOUNTER 2022-03-25 00:40 | Day surgery (SDC) | payer OTHER | END 2022-03-25 22:57 | disposition home or self-care (01) | LOC: WOUND 00:40 | DX: T87.81 Dehiscence of amputation stump (principal); E11.621 Type 2 diabetes mellitus with foot ulcer; L97.522 Non-pressure chronic ulcer of other part of left foot with fat layer exposed; E11.42 Type 2 diabetes mellitus with diabetic polyneuropathy; I25.2 Old myocardial infarction; E78.5 Hyperlipidemia, unspecified; J45.909 Unspecified asthma, uncomplicated; I10 Essential (primary) hypertension; I25.10 Atherosclerotic heart disease of native coronary artery without angina pectoris; Y83.9 Surgical procedure, unspecified as the cause of abnormal reaction of the patient, or of later complication, without mention of misadventure at the time of the procedure; Z59.01 Sheltered homelessness | CPT/HCPCS: 99406; A9270; G0463 ==

== ENCOUNTER 2022-04-08 08:20 | Day surgery (SDC) | payer OTHER | END 2022-04-08 23:01 | disposition home or self-care (01) | LOC: WOUND 08:20 | DX: E11.621 Type 2 diabetes mellitus with foot ulcer (principal); L97.522 Non-pressure chronic ulcer of other part of left foot with fat layer exposed; T81.31XA Disruption of external operation (surgical) wound, not elsewhere classified, initial encounter; E11.59 Type 2 diabetes mellitus with other circulatory complications; Z59.01 Sheltered homelessness; E11.42 Type 2 diabetes mellitus with diabetic polyneuropathy; I10 Essential (primary) hypertension; E78.5 Hyperlipidemia, unspecified; J45.909 Unspecified asthma, uncomplicated; I25.10 Atherosclerotic heart disease of native coronary artery without angina pectoris; I25.2 Old myocardial infarction; F17.290 Nicotine dependence, other tobacco product, uncomplicated | CPT/HCPCS: 99406; A9270; G0463 ==

== ENCOUNTER → 2022-04-10 | Outpatient (CLI) | payer OTHER ==
[2022-04-10 16:56] LABS: Source, Urine Voided
[2022-04-10 17:31] LABS: Appearance, Urine Clear (Clear); Bilirubin, Urine Neg (Neg); Blood, Urine 1+ (Neg); Color, Urine Yellow (P-Yellow); Glucose Qualitative, Urine Neg (Neg); Ketones, Urine Neg (Neg); Leukocyte Esterase, Urine 2+ (Neg); Nitrite, Urine Neg (Neg); Protein, Urine 2+ (Neg); Specific Gravity, Urine 1.015 (1.003-1.022); Urobilinogen, Urine NORM (Normal)
[2022-04-10 17:52] LABS: U Amphetamine Screen DETECTED; U Barbituate Screen Not Detected; U Benzodiazapine Screen Not Detected; U Buprenorphine Screen Not Detected; U Cannabinoids Screen Not Detected; U Cocaine Screen Not Detected; U Methadone Screen Not Detected; U Methamphetamine Screen DETECTED; U Opiates Screen Not Detected; U Oxycodone Screen Not Detected; U Phencyclidine Screen Not Detected; U Propoxyphene Screen Not Detected
[2022-04-10 18:02] LABS: Bacteria Rare /hpf; Red Blood Cells, Urine 0-2 /hpf (0-2); Squamous Epithelial Cells Rare /hpf (Few); Transitional Epithelial Cells Rare /hpf (0-Rare)
== END | disposition home or self-care (01) ==
LOC: LAB SHORT 16:00
PROVIDERS: Family Medicine
DX: R41.0 Disorientation, unspecified (principal)
CPT/HCPCS: 81001; 87077; 87086; 87186

== ENCOUNTER 2023-02-18 17:53 | Inpatient (IN) | payer OTHER ==
[~2023-02-18] VITALS: Ht 180.3 cm; Wt 91.8 kg
[~2023-02-18 17:53] MED LIST changes: +Acetaminophen650 M1 PO
[2023-02-18 19:35] LABS: BASOPHILS ABSOLUTE AUTO 0.03 K/mm3 (0.00-0.23); BASOPHILS PERCENT AUTO 0 % (0-2); EOSINOPHILS PERCENT AUTO 0 % (0-6); Hematocrit 36.4 % (37.0-53.0); Hemoglobin 11.8 g/dL (13.5-17.5); IMMATURE GRAN ABSOLUTE AUTO 0.06 K/mm3 (0.00-0.10); IMMATURE GRAN PERCENT AUTO 1 % (0-1); LYMPHOCYTES ABSOLUTE AUTO 0.31 K/mm3 (0.84-5.20); LYMPHOCYTES PERCENT AUTO 2 % (21-46); MONOCYTES ABSOLUTE AUTO 1.19 K/mm3 (0.16-1.47); MONOCYTES PERCENT AUTO 9 % (4-13); Mean Corpuscular HGB 27.6 pg (26.0-34.0); Mean Corpuscular HGB Conc 32.4 g/dL (31.5-36.5); Mean Corpuscular Volume 85 fL (80-100); Mean Platelet Volume 10.8 fL (9.1-12.4); NEUTROPHILS ABSOLUTE AUTO 11.36 K/mm3 (1.96-9.15); NEUTROPHILS PERCENT AUTO 88 % (41-73); Platelet Count 178 K/mm3 (150-400); RDW Coefficient Variation 13.9 % (11.7-14.2); RDW Standard Deviation 43.2 fL (35.1-46.3); Red Blood Cell Count 4.27 M/mm3 (4.30-5.90); White Blood Cell Count 12.95 K/mm3 (4.00-11.30)
[2023-02-18 20:01] LABS: Albumin, Blood 2.9 g/dL (3.4-5.0); Albumin/Globulin Ratio 0.6 (0.8-1.8); Bilirubin, Total 0.3 mg/dL (0.1-1.0); Bun/Creatinine Ratio 20.4 (12.0-20.0); Calcium, Blood 8.8 mg/dL (8.5-10.1); Creatinine, Blood 2.01 mg/dL (0.60-1.20); Globulin, Blood 4.5 g/dL (2.2-4.0); Potassium, Blood 5.1 mmol/L (3.5-5.5); Thyroid Stimulating Hormone 0.114 uIU/mL (0.360-4.800); Total Protein, Blood 7.4 g/dL (6.4-8.2)
[2023-02-18 20:36] LABS: Influenza A, PCR NEGATIVE (NEGATIVE); Influenza B, PCR NEGATIVE (NEGATIVE); Resp Syncytial Virus, PCR NEGATIVE (NEGATIVE); SARS-Cov-2 (COVID-19) PCR, MMC NEGATIVE (NEGATIVE)
[2023-02-18 22:29] VITALS: BP 116/67
--- NOTE | 2023-02-18 23:10 | NUR ---
ADMISSION PATIENT ARRIVED FROM ER VIA STRETCHER, SLIDE TRANSFER TO BED. PATIENT IS ALERT AND ORIENTED X4, PATIENT STATES HE IS UNABLE TO WALK ON HIS OWN. HE USUALLY USES A WALKER. PATIENT GIVEN A BED BATH, WOUNDS CLEANED AND PHOTOGRAPHED. HEART RATE TACHYCARDIC, ORAL TEMPERATURE 102.1 WHICH IS DECREASED FROM EARLIER. WILL CONTINUE TO MONITOR
[2023-02-19 03:54] LABS: BASOPHILS ABSOLUTE AUTO 0.04 K/mm3 (0.00-0.23); BASOPHILS PERCENT AUTO 1 % (0-2); EOSINOPHILS ABSOLUTE AUTO 0.03 K/mm3 (0.00-0.68); EOSINOPHILS PERCENT AUTO 0 % (0-6); Hematocrit 31.7 % (37.0-53.0); Hemoglobin 10.3 g/dL (13.5-17.5); IMMATURE GRAN ABSOLUTE AUTO 0.04 K/mm3 (0.00-0.10); IMMATURE GRAN PERCENT AUTO 1 % (0-1); LYMPHOCYTES ABSOLUTE AUTO 1.04 K/mm3 (0.84-5.20); LYMPHOCYTES PERCENT AUTO 12 % (21-46); MONOCYTES ABSOLUTE AUTO 1.07 K/mm3 (0.16-1.47); MONOCYTES PERCENT AUTO 13 % (4-13); Mean Corpuscular HGB 27.5 pg (26.0-34.0); Mean Corpuscular HGB Conc 32.5 g/dL (31.5-36.5); Mean Corpuscular Volume 85 fL (80-100); Mean Platelet Volume 10.5 fL (9.1-12.4); NEUTROPHILS ABSOLUTE AUTO 6.28 K/mm3 (1.96-9.15); NEUTROPHILS PERCENT AUTO 74 % (41-73); Platelet Count 157 K/mm3 (150-400); RDW Coefficient Variation 14.1 % (11.7-14.2); RDW Standard Deviation 43.7 fL (35.1-46.3); Red Blood Cell Count 3.75 M/mm3 (4.30-5.90)
[2023-02-19 04:09] LABS: Bun/Creatinine Ratio 20.5 (12.0-20.0); Creatinine, Blood 1.71 mg/dL (0.60-1.20); Potassium, Blood 4.2 mmol/L (3.5-5.5)
[2023-02-19 04:28] VITALS: BP 102/65
[2023-02-19 05:55] LABS: Source, Urine Clean Catch
[2023-02-19 06:02] LABS: Appearance, Urine Clear (Clear); Bilirubin, Urine Neg (Neg); Blood, Urine 3+ (Neg); Color, Urine Yellow (P-Yellow); Glucose Qualitative, Urine 3+ (Neg); Ketones, Urine Neg (Neg); Leukocyte Esterase, Urine Neg (Neg); Nitrite, Urine Neg (Neg); Protein, Urine 2+ (Neg); Specific Gravity, Urine 1.015 (1.003-1.022); Urobilinogen, Urine NORM (Normal)
[2023-02-19 06:21] LABS: Bacteria Not Seen /hpf; Mucus Light (0-Heavy); Squamous Epithelial Cells Few /hpf (Few); White Blood Cells, Urine Not Seen /hpf (0-5)
[2023-02-19 06:24] LABS: U Amphetamine Screen DETECTED; U Barbituate Screen Not Detected; U Benzodiazapine Screen Not Detected; U Cannabinoids Screen Not Detected; U Cocaine Screen Not Detected; U Methadone Screen Not Detected; U Methamphetamine Screen DETECTED; U Opiates Screen Not Detected; U Phencyclidine Screen Not Detected
[2023-02-19 06:25] LABS: U Buprenorphine Screen Not Detected; U Oxycodone Screen Not Detected; U Propoxyphene Screen Not Detected
--- NOTE | 2023-02-19 06:26 | NUR ---
SHIFT SUMMARY PATIENT ALERT AND ORIENTED X4. PATIENT IS HOMELESS AND VERY FOOD MOTIVATED. PATIENT FEBRILE AT ADMIT, REQUIRED PLACEMENT OF FAN AND ICE PACKS TO BRING TEMPERATURE DOWN. MEDICATED PER EMAR FOR PAIN. BLOOD PRESSURE STABLE, HEART RATE SINUS TACH. WILL CONTINUE TO MONITOR. CALL LIGHT WITHIN REACH.
[2023-02-19 07:57] VITALS: BP 105/60
[2023-02-19 11:52] VITALS: BP 90/63
--- NOTE | 2023-02-19 14:29 | NUR ---
SUMMARY AT 1430 PATIENT ALERT AND ORIENTED AND IN BED. BED BATH AND ATTENDS CHANGED BEFORE BREAKFAST. TOLERATING ADA DIET AND LIQUIDS. SALINE LOCKED AFTER BAG OF NS FINISHED. URINAL AT BEDSIDE BUT NEEDS ASSISTANCE. REPORTS CHRONIC PAIN TO LEFT SHOULDER AND LEFT FOOT. WOUNDS TO LEFT FOREARM, LEFT HIP, AND LEFT FOOT. HX LEFT TOE AMPUTATIONS. WOUNDS PHOTO DOCUMENTED IN CHART, INPATIENT WOUND CONSULT PLACED. ORTHO AND PODIATRY CONSULTED. NO PODIATRY TODAY, DR GUERRERO ON TOMORROW. SPOKE WITH DR PIERRE AND HE WILL SEE PATIENT AFTER DR GUERRERO IF NEEDED. ROUTINE IV ABX, POSITIVE PRELIM BLOOD CULTURE. PATIENT RESTING AND SLEEPING IN BED AT THIS TIME.
[2023-02-19 15:09] VITALS: BP 100/59
--- NOTE | 2023-02-19 17:40 | NUR ---
SHIFT SUMMARY This RN assumed care from afia TELLO at 1530. Patient vital signs are stable. patient reports no pain. patient reports no chest pain/pressure. patient reports no shortness of breath. patient has multiple wounds/scabs/brusing throughout. pictures in chart. plan is up to date. call light is within reach and bed in lowest position.
[2023-02-19 20:55] VITALS: BP 112/74
[2023-02-20 00:13] VITALS: BP 119/76
[2023-02-20 02:10] LABS: BASOPHILS ABSOLUTE AUTO 0.03 K/mm3 (0.00-0.23); BASOPHILS PERCENT AUTO 1 % (0-2); EOSINOPHILS ABSOLUTE AUTO 0.06 K/mm3 (0.00-0.68); EOSINOPHILS PERCENT AUTO 2 % (0-6); Hematocrit 30.1 % (37.0-53.0); Hemoglobin 9.9 g/dL (13.5-17.5); IMMATURE GRAN ABSOLUTE AUTO 0.01 K/mm3 (0.00-0.10); IMMATURE GRAN PERCENT AUTO 0 % (0-1); LYMPHOCYTES PERCENT AUTO 22 % (21-46); MONOCYTES ABSOLUTE AUTO 0.45 K/mm3 (0.16-1.47); MONOCYTES PERCENT AUTO 14 % (4-13); Mean Corpuscular HGB Conc 32.9 g/dL (31.5-36.5); Mean Corpuscular Volume 85 fL (80-100); Mean Platelet Volume 10.7 fL (9.1-12.4); NEUTROPHILS ABSOLUTE AUTO 1.87 K/mm3 (1.96-9.15); NEUTROPHILS PERCENT AUTO 60 % (41-73); Platelet Count 122 K/mm3 (150-400); RDW Coefficient Variation 14.3 % (11.7-14.2); RDW Standard Deviation 44.3 fL (35.1-46.3); Red Blood Cell Count 3.53 M/mm3 (4.30-5.90); White Blood Cell Count 3.12 K/mm3 (4.00-11.30)
[2023-02-20 02:26] LABS: Anion Gap 4 mmol/L (6-16); Blood Urea Nitrogen 31 mg/dL (8-24); Bun/Creatinine Ratio 20.9 (12.0-20.0); CO2, Blood 26 mmol/L (21-32); Calcium, Blood 8.2 mg/dL (8.5-10.1); Chloride, Blood 106 mmol/L (98-108); Creatinine, Blood 1.48 mg/dL (0.60-1.20); Glomerular Filtration Rate 54 (60-); Glucose, Blood 286 mg/dL (70-99); Potassium, Blood 4.3 mmol/L (3.5-5.5); Sodium, Blood 136 mmol/L (136-145)
[2023-02-20 04:47] VITALS: BP 112/66
--- NOTE | 2023-02-20 06:28 | NUR ---
SHIFT SUMMARY PATIENT ALERT AND ORIENTED X4. MEDICATED PER EMAR FOR PAIN. PATIENT DENIES CHEST PAIN AND SHORTNESS OF BREATH. VITAL SIGNS STABLE. SPO2 > 90% ON ROOM AIR. HEART SINUS RHYTHM IN 90'S TO SINUS TACH IN 110'S. NO ACUTE ISSUES NOTED OVERNIGHT. CALL LIGHT WITHIN REACH.
[2023-02-20 07:19] VITALS: BP 140/50
--- NOTE | 2023-02-20 08:30 | NUR ---
ASSUMED CARE PT AWAKE AND ALERT, ANSWERING QUESTIONS APPROPRIATELY. BP STABLE. HR NSR 70'S. 02 SATS >90% ON RA. PT COMPLAINS OF MILD PAIN TO LEFT FOOT AND SHOULDER. PT STATES IT IS AN ACHING PAIN AND HAS BEEN THERE "FOR MONTHS". WILL MEDICATE PER EMAR. PT COMPLAINED OF IV IN HIS AC, AND NEW IV PLACED TO LEFT FOREARM. PT STATES HE CAN AMBULATE MINIMAL DISTANCE DUE TO HIS TOE AMPUTATIONS AND PAIN. PT USING THE URINAL AT BEDSIDE. DR. GUERRERO CALLED FOR CONSULT THIS AM. MULTIPLE WOUNDS NOTED, SEE PICTURES IN CHART. DRESSING PLACED TO LEFT FOREARM AND LEFT HIP. WILL CONTINUE TO MONITOR CLOSELY
--- NOTE | 2023-02-20 14:31 | NUR ---
UPDATE DR. GUERRERO IN TO SEE PT AND PLAN FOR NPO WEDNESDAY NIGHT AT MIDNIGHT IN PREPARATION FOR PROCEDURE WEDNESDAY. WOUND PACKED AND DRESSED. PT TO TRANSFER TO MEDICAL FLOOR. REPORT GIVEN TO MEDICAL FLOOR RN. PT TO BE TAKEN UP BY BED
[2023-02-20 14:59] VITALS: BP 115/77
--- NOTE | 2023-02-20 15:42 | NUR ---
TRANSFER PT TRANSFERED FROM PCU. REPORT RECEIVED FROM VISH. PT IS ALERT AND ORIENTED X4. R/A. RESTING COMFORTABLY IN BED. TREATED PAIN PER EMAR.
[2023-02-20 19:49] VITALS: BP 109/63
[2023-02-21 03:14] VITALS: BP 117/71
[2023-02-21 05:01] LABS: BASOPHILS ABSOLUTE AUTO 0.04 K/mm3 (0.00-0.23); BASOPHILS PERCENT AUTO 1 % (0-2); EOSINOPHILS ABSOLUTE AUTO 0.19 K/mm3 (0.00-0.68); EOSINOPHILS PERCENT AUTO 6 % (0-6); Hematocrit 31.7 % (37.0-53.0); Hemoglobin 10.1 g/dL (13.5-17.5); Mean Corpuscular HGB 27.4 pg (26.0-34.0); Mean Corpuscular HGB Conc 31.9 g/dL (31.5-36.5); Mean Corpuscular Volume 86 fL (80-100); Mean Platelet Volume 11.2 fL (9.1-12.4); Platelet Count 146 K/mm3 (150-400); RDW Coefficient Variation 14.1 % (11.7-14.2); Red Blood Cell Count 3.69 M/mm3 (4.30-5.90); White Blood Cell Count 3.43 K/mm3 (4.00-11.30)
[2023-02-21 05:05] LABS: IMMATURE GRAN PERCENT AUTO 0 % (0-1); LYMPHOCYTES ABSOLUTE AUTO 1.24 K/mm3 (0.84-5.20); LYMPHOCYTES PERCENT AUTO 36 % (21-46); MONOCYTES ABSOLUTE AUTO 0.46 K/mm3 (0.16-1.47); MONOCYTES PERCENT AUTO 13 % (4-13); NEUTROPHILS PERCENT AUTO 44 % (41-73)
[2023-02-21 05:21] LABS: Bun/Creatinine Ratio 19.5 (12.0-20.0); C-REACTIVE PROTEIN, EXT RANGE 7.12 mg/dL (0.000-0.300); Calcium, Blood 8.6 mg/dL (8.5-10.1); Creatinine, Blood 1.28 mg/dL (0.60-1.20); Potassium, Blood 4.8 mmol/L (3.5-5.5)
--- NOTE | 2023-02-21 06:45 | NUR ---
PATIENT AWAKE ALL NIGHT. SLEEPING MED REQUESTED AND GIVEN (TRAZODONE 50MG) WITH VERY LITTLE EFFECT. PATIENT WAS ABLE TO TOLERATE DISCOMFORT (MOSTLY LEFT SHOULDER ) WITH CURRENT REGIMEN. VORACIOUS APPETITE, CALLING EVERY 30-40 MINUTES FOR SNACKS AND DRINKS AND SEEMINGLY WIDE AWAKE UNTIL AROUND 0600. MARVEL CONTINUES TO REFUSE LOVENOX AND HIS PROBIOTIC. HE STATES HE DOESN'T KNOW WHEN HE HAD HIS LAST STOOL, BUT HIS ROUTINE IS TO "GO ABOUT EVERY TWO WEEKS".
[2023-02-21 08:07] VITALS: BP 126/78
[2023-02-21 15:12] VITALS: BP 134/79
--- NOTE | 2023-02-21 16:08 | NUR ---
SHIFT SUMMARY PT IS ALERT AND ORIENTED X4. BRIEF EPISODE OF DIZZINESS THIS MORNING. NOW RESOLVED. MD AWARE SEE ORDERS. PT HAS BEEN PLEASANT AND COOPERATIVE TODAY. NO BM FOR 2 DAYS PER PT. PT STATED THAT THIS IS NORMAL FOR HIM AND HE IS NOT CONCERNED AT THIS TIME. BED IS IN THE LOWEST POSITION WITH CALL LIGHT IN REACH
[2023-02-21 19:45] VITALS: BP 111/66
[2023-02-22 04:57] LABS: BASOPHILS ABSOLUTE AUTO 0.04 K/mm3 (0.00-0.23); BASOPHILS PERCENT AUTO 1 % (0-2); EOSINOPHILS ABSOLUTE AUTO 0.22 K/mm3 (0.00-0.68); EOSINOPHILS PERCENT AUTO 4 % (0-6); Hematocrit 34.7 % (37.0-53.0); Hemoglobin 11.2 g/dL (13.5-17.5); IMMATURE GRAN ABSOLUTE AUTO 0.02 K/mm3 (0.00-0.10); IMMATURE GRAN PERCENT AUTO 0 % (0-1); LYMPHOCYTES ABSOLUTE AUTO 2.23 K/mm3 (0.84-5.20); LYMPHOCYTES PERCENT AUTO 43 % (21-46); MONOCYTES ABSOLUTE AUTO 0.52 K/mm3 (0.16-1.47); MONOCYTES PERCENT AUTO 10 % (4-13); Mean Corpuscular HGB 27.6 pg (26.0-34.0); Mean Corpuscular HGB Conc 32.3 g/dL (31.5-36.5); Mean Corpuscular Volume 86 fL (80-100); Mean Platelet Volume 10.7 fL (9.1-12.4); NEUTROPHILS ABSOLUTE AUTO 2.12 K/mm3 (1.96-9.15); NEUTROPHILS PERCENT AUTO 41 % (41-73); Platelet Count 192 K/mm3 (150-400); RDW Standard Deviation 43.6 fL (35.1-46.3); Red Blood Cell Count 4.06 M/mm3 (4.30-5.90); White Blood Cell Count 5.15 K/mm3 (4.00-11.30)
[2023-02-22 05:19] LABS: Bun/Creatinine Ratio 18.8 (12.0-20.0); Calcium, Blood 8.4 mg/dL (8.5-10.1); Creatinine, Blood 1.28 mg/dL (0.60-1.20)
[2023-02-22 05:26] VITALS: BP 127/65
[2023-02-22 08:00] VITALS: BP 129/69
--- NOTE | 2023-02-22 08:15 | NUR ---
HOLLY ACTUALLY SLEPT FROM 2400 UNTIL 0600 THIS MORNING. HE HAD BED BATH THIS MORNING. LEFT FOOT DRESSING REMAINS INTACT. HE HAS BEEN NPO SINCE APPROX [id number]. NO OTHER CHANGES NOTED
[2023-02-22 15:17] VITALS: BP 115/62
--- NOTE | 2023-02-22 18:15 | NUR ---
SHIFT SUMMARY PT AXO. PT WAS SUPPOSED TO BE NPO BUT WAS EATING THROUGHOUT THE DAY (WITHOUT THIS NURSE KNOWING. DAY SURGERY NURSES CAME TO GET PATIENT FOR I&D BUT PATIENT ADMITTED TO EATING. PT ASKING FOR SNACKS EVER SINCE. PT REFUSING INSULIN AND ALL OTHER MEDS OTHER THAN PAIN MEDS. MEDICATED FOR PAIN PER EMAR. DRESSING IN PLACE THROUGHOUT THE SHIFT. BED IN LOW POSITION, CALL LIGHT WITHIN REACH. CHARGE NURSE AWARE
[2023-02-22 19:24] VITALS: BP 125/69
[2023-02-23] VITALS (11 sets, daily range): BP systolic 101–131; BP diastolic 66–80
--- NOTE | 2023-02-23 04:29 | NUR ---
SHIFT SUMMARY PT A&OX4. ASKING FOR AND EATING SNACKS PRETTY MUCH CONTINUOUSLY UNTIL NPO AT MIDNIGHT. EXPLAINED THAT HE WOULD BE NPO AT MIDNIGHT TO PREPARE FOR PROCEDURE 03/15/23 AND PT STATED HE UNDERSTOOD. ALL REMAINING NUTRITION REMOVED FROM ROOM AT MIDNIGHT. PT MEDICATED FOR PAIN WITH HS MED PASS. REPORTED SLIGHT IMPROVEMENT. PT HAS BEEN RESTING QUIETLY T/O REST OF SHIFT WITHOUT REPORTING ANY NEEDS OR COMPLAINTS. WILL CONTINUE TO MONITOR AND PROVIDE CARE T/O SHIFT.
[2023-02-23 05:31] LABS: Bun/Creatinine Ratio 22.8 (12.0-20.0); Calcium, Blood 8.4 mg/dL (8.5-10.1); Creatinine, Blood 1.23 mg/dL (0.60-1.20); Potassium, Blood 4.6 mmol/L (3.5-5.5)
--- NOTE | 2023-02-23 07:59 | NUR ---
VERBAL FROM RADHA TO ORDER NS @ 100. PT IS NPO AND IS ON THE "ADD ON LIST" FOR SURGERY TODAY FOR I&D.
[2023-02-23 08:10] LABS: HIV AB/P24 AG SCREEN Non Reactive (Non Reactive)
--- NOTE | 2023-02-23 14:16 | NUR ---
REPORT GIVEN TO MARJORIE BRAUN RN.
--- NOTE | 2023-02-23 16:00 | NUR ---
02/23/23 1600 Tammy Holland PT ON SCHEDULED ANTIBIOTICS AND RECIEVED PRIOR TO ARRIVAL TO OR.
--- NOTE | 2023-02-23 18:37 | NUR ---
SHIFT SUMMARY-NO ACUTE EVENTS THIS SHIFT. PT TOLERATING DINNER AFTER I&D TODAY. PT DID REFUSE HIS INSULIN ALL DAY. AAOX4. X2 ASSIST. APPROPRIATE.
--- NOTE | 2023-02-24 00:27 | NUR ---
NURSE NOTE--PHYSICIAN CONTACT PT BLOOD SUGAR 361 AT 2350; CALL TO SLIDE MAKER/DR PALUMBO. NEW ORDER TO CHANGE LISPRO/QUICKPEN FROM AC ONLY TO AC/HS AND GIVE HS DOSE NOW ACCORDING TO LOW SLIDING SCALE. ADVISED THIS WOULD BE 4 UNITS OF LISPRO PER LOW CS; PROVIDER OK.
[2023-02-24 02:11] VITALS: BP 113/70
[2023-02-24 05:08] VITALS: BP 104/47
--- NOTE | 2023-02-24 06:18 | NUR ---
DECK OFFICER SUMMARY PT A/OX4. PLEASANT AND COOPERATIVE. SEE NURSE NOTE ON ELEVATED BLOOD SUGARS. PT UP TO BSC F/BM LAST NIGHT. MOVEMENT CAUSED WOUND ON RT FOOT TO SATURATE WITH BLOOD THROUGH THE SAL WRAP. BANDAGE CHANGED AND MONITORED T/O THE NIGHT; CDI. ENCOURAGE LIGHT TOE TOUCH ONLY WHEN NECESSARY. PT EDUCATION ON ADA DIET AND BLOOD SUGAR CONTROL. PT ABLE TO MAKE NEEDS KNOWN. CALL LIGHT ACCESSIBLE.
[2023-02-24 07:55] VITALS: BP 105/54
[2023-02-24 07:56] VITALS: BP 105/54
[2023-02-24 08:11] LABS: HBSAG SCREEN Negative (Negative); HCV AB Non Reactive (Non Reactive); HEP A AB, IGM Negative (Negative); HEP B CORE AB, TOT Negative (Negative)
[2023-02-24 08:26] LABS: Bun/Creatinine Ratio 28.7 (12.0-20.0); Calcium, Blood 8.3 mg/dL (8.5-10.1); Creatinine, Blood 1.22 mg/dL (0.60-1.20); Potassium, Blood 4.6 mmol/L (3.5-5.5)
--- NOTE | 2023-02-24 16:19 | NUR ---
WOUND CARE LLE DRESSING CHANGED D/T SATURATION. ANTIBIOTIC BEADS ARE IN PLACE. ABD PAD CAREFULLY REMOVED D/T BEADS ADHERING TO PAD. XEROFORM PLACE OVER BEADS/WOUND TO PREVENT ADHERANCE IF DRESSING NEEDS CHANGED AGAIN. XEROFORM ALSO PLACED ON L DORSAL AND LATERAL FOOT ULCERS. BETADINE TO DARK SPOTS ON R FOOT. CALCIUM ALGINATE/ BORDERED FOAM TO L HIP. XEROFORM/BORDERED GAUZE TO LUE. PT TOLERATED WELL
--- NOTE | 2023-02-24 18:39 | NUR ---
SHIFT SUMMARY- NO ACUTE EVENTS OVERNIGHT. PT DID REFUSE SOME INSULIN AND HEPARIN TODAY. HELPDESK ADMINISTRATOR CHANGED DRESSING TODAY ON LLE. PAIN WELL CONTROLLED WITH PAIN MEDS.
[2023-02-24 19:38] VITALS: BP 108/70
--- NOTE | 2023-02-25 06:05 | NUR ---
NO CHANGES OVERNIGHT FOR MARVEL. LEFT FOOT DRESSING IS CLEAN DRY AND INTACT. PATIENT DID NOT GET OOB OVERNIGHT. TOLERATING IV ANTIBIOTICS, SLEPT ABOUT 50% OF THE NIGHT BETWEEN TV SHOWS AND SNACKS. PAIN TOLERABLE WITH CURRENT PAIN MEDICATION REGIMEN. MARVEL IS CONTINUING TO REFUSE HIS HEPARIN, PROBIOTIC AND ALL BOWEL MEDICATIONS
[2023-02-25 07:47] VITALS: BP 120/72
[2023-02-25 16:20] VITALS: BP 100/68
--- NOTE | 2023-02-25 16:50 | NUR ---
CALLED PHARMACY ABOUT PT CLEOCIN- THE AM DOSE WAS GIVEN LATE. PER PHARMACY 1600 DOSE SHOULD BE GIVEN AT 1800 THEN THE FOLLOWING DOSE AT 0000. WILL HANG THE 1600 DOSE AT 1800 PER PHARMACY RECOMENDATION. AND PASS ON TO NIGHT RN THAT THE NEXT DOSE SHOULD BE BACK ON SCHEDULE AT 0000.
--- NOTE | 2023-02-25 18:54 | NUR ---
SHIFT SUMMARY- PT ALERT AND ORIENTED REFUSING SEVERAL MEDS AND TREATMENTS, MD AWARE. PT CURRENTLY IN BED, CALL LIGHT IN REACH NO S&S OF DISTRESS, NEXT PAIN MED AVAILABLE AT 1930 PT AWARE, PODIATRY CAME AND CHANGE THE PT DRESSING TODAY. DRESSING IS C/D/I. UNABLE TO PALPATE LEFT PEDAL PULSE D/T DRESSINGS IN PLACE THIS AM. WILL PASS ALL ON TO NIGHT RN IN BEDSIDE REPORT.
[2023-02-25 20:09] VITALS: BP 104/59
[2023-02-26 03:30] VITALS: BP 103/55
[2023-02-26 04:49] LABS: BASOPHILS ABSOLUTE AUTO 0.07 K/mm3 (0.00-0.23); BASOPHILS PERCENT AUTO 1 % (0-2); EOSINOPHILS ABSOLUTE AUTO 0.29 K/mm3 (0.00-0.68); EOSINOPHILS PERCENT AUTO 3 % (0-6); Hematocrit 37.3 % (37.0-53.0); IMMATURE GRAN ABSOLUTE AUTO 0.04 K/mm3 (0.00-0.10); IMMATURE GRAN PERCENT AUTO 1 % (0-1); LYMPHOCYTES ABSOLUTE AUTO 3.41 K/mm3 (0.84-5.20); LYMPHOCYTES PERCENT AUTO 41 % (21-46); MONOCYTES ABSOLUTE AUTO 0.64 K/mm3 (0.16-1.47); MONOCYTES PERCENT AUTO 8 % (4-13); Mean Corpuscular HGB 27.1 pg (26.0-34.0); Mean Corpuscular HGB Conc 32.2 g/dL (31.5-36.5); Mean Corpuscular Volume 84 fL (80-100); Mean Platelet Volume 9.8 fL (9.1-12.4); NEUTROPHILS ABSOLUTE AUTO 3.96 K/mm3 (1.96-9.15); NEUTROPHILS PERCENT AUTO 47 % (41-73); Platelet Count 343 K/mm3 (150-400); RDW Standard Deviation 43.1 fL (35.1-46.3); Red Blood Cell Count 4.43 M/mm3 (4.30-5.90); White Blood Cell Count 8.41 K/mm3 (4.00-11.30)
[2023-02-26 05:13] LABS: Bun/Creatinine Ratio 37.5 (12.0-20.0); Calcium, Blood 8.6 mg/dL (8.5-10.1); Creatinine, Blood 1.28 mg/dL (0.60-1.20); Potassium, Blood 4.7 mmol/L (3.5-5.5)
--- NOTE | 2023-02-26 06:33 | NUR ---
NO CHANGES OVERNIGHT WITH HOLLY. LEFT FOOT DRESSING REMAINS CLEAN DRY AND INTACT. PAIN APPEARS TO BE WELL MANAGED WITH PERCOCET 5MG EVERY 6 HOURS PRN. PATIENT CONTINUES TO REFUSE ALL BOWEL MEDS WELL HEPARIN HE HAS SINCE PRIOR TO HIS SURGERY. WILL CONTINUE CLOSE MONITORING
[2023-02-26 07:49] VITALS: BP 127/67
[2023-02-26 15:52] VITALS: BP 108/63
--- NOTE | 2023-02-26 18:37 | NUR ---
SHIFT SUMMARY A&O X 4. VSS. IS PLEASANT. APPETITE IS GOOD. NO CHANGES THIS SHIFT. MEDICATED FOR C/O PAIN PER EMAR WITH GOOD RELIEF STATED BY PT. PT CONTINUES TO REFUSE HUMALOG, PROBIOTIC, LOVENOX & NOW THE XARELTO THAT MD ORDERED TODAY. ATTEMPTS AT EDUCATION MET WITH RESISTANCE & REFUSAL TO LISTEN. ATTEMPTS TO INFORM ON RISKS RELATED TO REFUSING MEDICATIONS WERE MET WITH RESISTANCE & REFUSAL. PLAN IS FOR DC HOME TO PREVIOUS LIVING SITUATION.
[2023-02-26 20:35] VITALS: BP 109/66
[2023-02-27 02:49] VITALS: BP 100/64
--- NOTE | 2023-02-27 05:15 | NUR ---
SHIFT SUMMARY PT IS A&O4, SB WITH A WALKER TO THE BR USES URINAL, RA, VSS, PRN PAIN MEDICATION GIVEN THIS SHIFT PER MAR, CONTINUE POC
[2023-02-27 07:35] VITALS: BP 103/65
[2023-02-27 15:42] VITALS: BP 143/75
--- NOTE | 2023-02-27 19:28 | NUR ---
SHIFT SUMMARY NO ACUTE CHANGES THIS SHIFT. VSS. APPETITE GOOD. MEDICATED FOR C/O PAIN PER EMAR WITH GOOD RELIEF STATED BY PT. USES URINAL INDEPENDENTLY. CONTINUES TO REFUSE HUMALOG IF LESS THAN 3 UNITS IS REQUIRED, REFUSES XARELTO & PROBIOTIC. IS AGREEABLE TO TAKE ANTI BIOTICS & PAIN MEDS. L FOOT DRSNG IS C/D/I. IS PLEASANT. CALL LIGHT IS WITHIN REACH.
[2023-02-27 19:34] VITALS: BP 108/71
--- NOTE | 2023-02-28 03:34 | NUR ---
HISTOTECHNOLOGIST SUPERVISOR SUMMARY VSS. DRESSING OF LEFT FOOT CDI. HAS RECEIVED PAIN MEDS FOR DISCOMFORT OF LEFT FOOT WELL. ANTIBIOTICS ADMINISTERED. SEE MAR FOR DETAILS. HAS BEEN RESTING QUIETLY WITH FEW INTERRUPTIONS. CALL LIGHT IN REAECH. ISOLATION PRECAUTIONS CONTINUE. WILL CONTINUE TO MONITOR
[2023-02-28 04:17] VITALS: BP 99/62
[2023-02-28 07:40] VITALS: BP 117/75
--- NOTE | 2023-02-28 14:46 | NUR ---
WOUND DRSNG CHANGE DR. PERKINS & DR. MILLER HERE. DR. PERKINS PLACED CALL TO DR. CHIRINOS REGARDING L FOOT DRSNG CHANGE. DR. CHIRINOS PROVIDED GUIDANCE ON APPROPRIATE DRSNG CHANGE. OLD DRSNG REMOVED, WOUND CLEANED WITH WOUND DATABASE DEVELOPMENT PROJECT MANAGER, IODOFORM GAUZE STRIPING PLACED OVER OPEN AREA WITH VISIBLE ANTI BIOTIC BEADS SEEN IN WOUND BED, IODINE (XEROFORM) VASELINE GAUZE PLACED OVER ENTIRE WOUND HOLDING GAUZE STRIPS IN PLACE, FLUFF 4X4'S COVERED IODINE VASELINE GAUZE THEN WRAPPED WITH KERLEX WRAP AND THEN SECURELY WRAPPED AGAIN WITH WIDE COBAN. ALL DONE PER MD GUIDANCE. PT TOLERATED WELL.
[2023-02-28 16:03] VITALS: BP 102/64
--- NOTE | 2023-02-28 19:20 | NUR ---
SHIFT SUMMARY NO ACUTE CHANGES THIS SHIFT. VSS. NEW L FOOT DRSNG REMAINS C/D/I. MEDICATED FOR PAIN PER EMAR. APPETITE IS GOOD. PT UP THE RESTROOM, BED LINENS CHANGED & NEW GOWN PLACED ON PT. CONTINUES TO REFUSE HUMALOG, XARELTO, & PROBIOTIC. WILLINGLY TAKES HIS ANTIBIOTICS & PAIN MEDS. PLAN IS FOR POSSIBLE PLACEMENT VS HOME TO PRIOR LIVING SITUATION. PT IS UNHOUSED. HAS TENT & TARP IN THE ROOM BROUGHT IN BY HIS SW.
[2023-02-28 19:32] VITALS: BP 110/68
--- NOTE | 2023-03-01 03:49 | NUR ---
RHIC SYSTEMS SAFETY ENGINEER SUMMARY VSS. DRESSING OF LEFT FOOT CDI. HAS BEEN RESTING QUIETLY WITH OCCASIONAL INTERRUPTION, FOR PAIN MEDS FOR FOOT, AND FOR MED FOR "HEARTBURN". ANTIBIOTICS INFUSED. CALL LIGHT IN REACH. ISOLATION PRECAUTIONS CONTINUE. WILL CONTINUE TO MONITOR
[2023-03-01 04:56] VITALS: BP 118/72
[2023-03-01 07:17] VITALS: BP 119/61
[2023-03-01 08:05] LABS: BASOPHILS ABSOLUTE AUTO 0.08 K/mm3 (0.00-0.23); BASOPHILS PERCENT AUTO 1 % (0-2); EOSINOPHILS ABSOLUTE AUTO 0.31 K/mm3 (0.00-0.68); EOSINOPHILS PERCENT AUTO 3 % (0-6); Hematocrit 36.8 % (37.0-53.0); Hemoglobin 11.9 g/dL (13.5-17.5); IMMATURE GRAN ABSOLUTE AUTO 0.04 K/mm3 (0.00-0.10); IMMATURE GRAN PERCENT AUTO 0 % (0-1); LYMPHOCYTES ABSOLUTE AUTO 3.11 K/mm3 (0.84-5.20); LYMPHOCYTES PERCENT AUTO 33 % (21-46); MONOCYTES ABSOLUTE AUTO 0.75 K/mm3 (0.16-1.47); MONOCYTES PERCENT AUTO 8 % (4-13); Mean Corpuscular HGB 27.7 pg (26.0-34.0); Mean Corpuscular HGB Conc 32.3 g/dL (31.5-36.5); Mean Corpuscular Volume 86 fL (80-100); Mean Platelet Volume 9.8 fL (9.1-12.4); NEUTROPHILS ABSOLUTE AUTO 5.22 K/mm3 (1.96-9.15); NEUTROPHILS PERCENT AUTO 55 % (41-73); Platelet Count 391 K/mm3 (150-400); RDW Coefficient Variation 14.6 % (11.7-14.2); RDW Standard Deviation 45.4 fL (35.1-46.3); Red Blood Cell Count 4.29 M/mm3 (4.30-5.90); White Blood Cell Count 9.51 K/mm3 (4.00-11.30)
[2023-03-01 08:25] LABS: Bun/Creatinine Ratio 45.5 (12.0-20.0); Calcium, Blood 8.6 mg/dL (8.5-10.1); Creatinine, Blood 1.23 mg/dL (0.60-1.20); Potassium, Blood 4.7 mmol/L (3.5-5.5)
[2023-03-01 15:25] VITALS: BP 109/64
--- NOTE | 2023-03-01 18:29 | NUR ---
SHIFT SUMMARY PT AxOx4. PLEASANT AND COOPERATIVE WITH CARE. PATIENT WORKED WITH PHYSICAL THERAPY THIS SHIFT. WATCH ELECTRICIAN IN ROOM TODAY WORKING ON DC PLANS. PATIENT HAD SHOWER THIS AM. WOUND CARE AND DRESSING CHANGES DONE THIS SHIFT. PT MEDICATED FOR PAIN x2 THIS SHIFT. PT IS AWAITING DC PLANNING AT THIS TIME, CURRENTLY COMPLICATED BY IMPAIRED AMBULATION AND HOUSELESSNESS. PT DENIES ANY NEEDS AT THIS TIME. CALL LIGHT IN REACH.
[2023-03-01 19:44] VITALS: BP 107/60
--- NOTE | 2023-03-02 00:07 | NUR ---
PT OOB TO USE BATHROOM. PLACING LT TOES/STUB DIRECTLY ON FLOOR, NOT FOLLOWING WB STATUS. BLEEDING AT END, REINFORCED WITH GAUZE AND TAPE. "NO I DONT THINK I CAN LEAVE IF ITS GOING TO BLEED". REMINDED PT OF WB.
[2023-03-02 04:43] VITALS: BP 110/67
[2023-03-02 06:05] LABS: Bun/Creatinine Ratio 42.1 (12.0-20.0); Calcium, Blood 8.7 mg/dL (8.5-10.1); Creatinine, Blood 1.4 mg/dL (0.60-1.20); Potassium, Blood 4.7 mmol/L (3.5-5.5)
--- NOTE | 2023-03-02 06:05 | NUR ---
PT CALLS FOR NEEDS, MOSTLY FOR FOOD AND DRINKS. REFUSES SOME MEDICATION, DID TAKE LONG ACTING INSULIN. CALLS FOR PAIN MEDS Q 6HRS. DRESSING REINFORCED OVERNIGHT AFTER PT PUTTING WT ON TOES/BALL OF FOOT WHICH CAUSED BLEEDING. PREVIOUS NOTE STATED PT STATES HE DID NOT PUT WT ON FOOT ALTHOUGH WITNESSED BY STAFF AND BLOOD ON FLOOR FROM PLACEMENT OF FOOT.
[2023-03-02 07:18] VITALS: BP 113/63
[2023-03-02 15:37] VITALS: BP 122/61
--- NOTE | 2023-03-02 16:20 | NUR ---
PATIENT A/OX4, UP WITH OT TODAY WITH FWW AND 1 ASSIST. HEEL TOAUCH WEIGHT BEARING ON L FOOT. DRESSING REMAINS C/D/I. DR GUERRERO PLACED WOUND CARE ORDERS TODAY WHICH IS TO BE DONE EVERY OTHER DAY. WOUND CARE NURSE WILL BE UP TOMORROW TO CHANGE DRESSING. DRESSING TO LEFT HIP PRESSURE ULCER CHANGED THIS SHIFT. PATIENT ACHS, REFUSED INSULIN TODAY BECAUSE HE FELT THAT THE 1-2 UNITS WHICH SHOULD HAVE BEEN GIVEN AT BREAKFAST AND LUNCH "ISN'T WORTH IT." PATIENT ALSO REFUSING XARELTO AND PROBIOTICS.
[2023-03-02 19:27] VITALS: BP 99/59
--- NOTE | 2023-03-03 05:55 | NUR ---
PT CALLING FOR FREQUENT SNACKS AT START OF SHIFT, REMINDED PT OF DIABETIC DIET AND REFUSAL OF INSULIN COVERAGE. MEDICATED X2 FOR PAIN.
[2023-03-03 07:09] VITALS: BP 108/68
[2023-03-03 14:44] VITALS: BP 112/70
--- NOTE | 2023-03-03 18:09 | NUR ---
NO ACUTE CHANGES THIS SHIFT. DRESSING TO L FOOT CHANGED TODAY BY GRAYSON, WOUND CARE NURSE PER MD ORDER. VSS, ON RA. UP TO CHAIR FOR LUNCH. PERCOCCET GIEN X1 FOR L FOOT PAIN. PATIENT REFUSED INSULIN AGAIN TODAY AND MOST OTHER MEDS. VOIDING IN URINAL. CALLS APPROPRIATELY FOR ASSISTANCE. WORKED WITH OT.
[2023-03-03 20:12] VITALS: BP 102/62
[2023-03-04 02:08] VITALS: BP 124/64
--- NOTE | 2023-03-04 06:01 | NUR ---
SHIFT SUMMARY PT SITTING UP IN BED DURING BEDSIDE REPORT, PT REPORTS PAIN IN LEFT FOOT- MEDICATED AT BEGINNING OF SHIFT WITH PERCOCET PER ORDER, PT TOOK SCHEDULED MEDICATIONS AND INSULIN AT HS- PT REFUSED PROBIOTIC- 0156 PT REQUESTED SNACK AND PERCOCET - PT REPORTED PAIN IN LEFT FOOT- PT SLEPT T/O NIGHT, BED LOW POSITION, CALL LIGHT WITHIN REACH, CONTACT PRECAUTIONS IN PLACE
[2023-03-04 07:17] VITALS: BP 114/61
[2023-03-04] MEDS ORDERED: JUVEN PACKET1 EAC3 PO (13:43)
[2023-03-04] MEDS ORDERED: INSULANPEN SC (13:44)
[2023-03-04] MEDS ORDERED: Calcium Carbon500 MG PO (13:44)
[2023-03-04] MEDS ORDERED: TRAZ50 PO (13:45)
[2023-03-04] MEDS ORDERED: HUMALOG KW100 UNIT/1 SC (13:45)
[2023-03-04] MEDS ORDERED: ACET325 PO (13:46)
--- NOTE | 2023-03-04 15:35 | NUR ---
PATIENT D/C'D TO [facility] VIA WC TRANSPORT. DC INSTRUCTIONS AND EDUCATION DISCUSSED WITH PATIENT AND COPY PROVIDED. RX MEDICATIONS SENT TO [facility]. PATIENT TO FOLLOW UP WITH WOUND CLINIC FOR DRESSING CHANGES. PATIENT DENIES ANY FURTHER QUESTIONS OR CONCERNS.
== END 2023-03-04 15:10 | disposition home or self-care (01) | DRG 474 ==
LOC: ER 17:53 → MEDS 21:48 → PCU 21:48 → MEDS 02-20 14:52 → ENPENDDIS 03-04 11:57 → MEDS 03-04 15:10
PROVIDERS: Emergency Medicine; Family Medicine; Pharmacist; Podiatrist; Student in an Organized Health Care Education/Training Program; ADMIT Internal Medicine
PROC: 3E03329 Introduction of Other Anti-infective into Peripheral Vein, Percutaneous Approach (ICD-10-PCS; principal; 2023-02-18)
PROC: 0Y6N0ZB Detachment at Left Foot, Partial 2nd Ray, Open Approach (ICD-10-PCS; 2023-02-23)
DX: T87.44 Infection of amputation stump, left lower extremity (principal); A41.02 Sepsis due to Methicillin resistant Staphylococcus aureus; R65.20 Severe sepsis without septic shock; L03.116 Cellulitis of left lower limb; N17.9 Acute kidney failure, unspecified; M86.272 Subacute osteomyelitis, left ankle and foot; Z66 Do not resuscitate; R94.31 Abnormal electrocardiogram [ECG] [EKG]; R94.6 Abnormal results of thyroid function studies; F19.10 Other psychoactive substance abuse, uncomplicated; E11.69 Type 2 diabetes mellitus with other specified complication; E11.22 Type 2 diabetes mellitus with diabetic chronic kidney disease; I49.8 Other specified cardiac arrhythmias; F15.10 Other stimulant abuse, uncomplicated; I12.9 Hypertensive chronic kidney disease with stage 1 through stage 4 chronic kidney disease, or unspecified chronic kidney disease; E11.621 Type 2 diabetes mellitus with foot ulcer; F17.210 Nicotine dependence, cigarettes, uncomplicated; L97.529 Non-pressure chronic ulcer of other part of left foot with unspecified severity; E86.0 Dehydration; N18.2 Chronic kidney disease, stage 2 (mild); Z20.822 Contact with and (suspected) exposure to COVID-19; B96.4 Proteus (mirabilis) (morganii) as the cause of diseases classified elsewhere; B95.2 Enterococcus as the cause of diseases classified elsewhere; Y83.8 Other surgical procedures as the cause of abnormal reaction of the patient, or of later complication, without mention of misadventure at the time of the procedure; W18.30XA Fall on same level, unspecified, initial encounter; Z86.73 Personal history of transient ischemic attack (TIA), and cerebral infarction without residual deficits; Z79.84 Long term (current) use of oral hypoglycemic drugs; Z91.148 Patient's other noncompliance with medication regimen for other reason; Z71.51 Drug abuse counseling and surveillance of drug abuser; Z71.6 Tobacco abuse counseling; Z59.00 Homelessness unspecified; Z86.14 Personal history of Methicillin resistant Staphylococcus aureus infection; Z90.49 Acquired absence of other specified parts of digestive tract; Z98.890 Other specified postprocedural states; Z79.899 Other long term (current) drug therapy; Z79.2 Long term (current) use of antibiotics; Z89.421 Acquired absence of other right toe(s)
CPT/HCPCS: 0241U; 36415; 71045; 73630; 73701; 80048; 80053; 80202; 81001; 82947; 83036; 83605; 83880; 84443; 84484; 85025; 85651; 86140; 86704; 86708; 86803; 87040; 87070; 87071; 87075; 87077; 87147; 87186; 87205; 87340; 87389; 88305; 88311; 93005; 93010; 94760; 96365-59; 97110; 97116; 97162; 97166; 97530; 97535; 99285-25; A9270; C1713; J0696; J1100; J1815; J2185; J2370; J2405; J2543; J2704; J3010; J3370; J7030; J7050; Q9967

== ENCOUNTER 2023-10-19 09:51 | Emergency (ER) | payer OTHER ==
[~2023-10-19] VITALS: Ht 180.3 cm; Wt 90.7 kg
[~2023-10-19 09:51] MED LIST changes: +APHEN325 M2 PO; +BASAGLAR K100 UNIT/1 SC; +Calcium Carbon500 MG PO; +Cephalexin500 M1 PO; +HUMALOG KW100 UNIT/1 SC; +INSULIN GL100 UNIT/2 SQ; +JUVEN PACKET1 EAC3 PO; +Percocet 5-3251 EACH PO
[2023-10-19 10:12] VITALS: BP 161/83
[2023-10-19 10:41] LABS: BASOPHILS ABSOLUTE AUTO 0.09 K/mm3 (0.00-0.23); BASOPHILS PERCENT AUTO 1 % (0-2); EOSINOPHILS ABSOLUTE AUTO 0.28 K/mm3 (0.00-0.68); EOSINOPHILS PERCENT AUTO 4 % (0-6); Hemoglobin 15.7 g/dL (13.5-17.5); IMMATURE GRAN ABSOLUTE AUTO 0.02 K/mm3 (0.00-0.10); IMMATURE GRAN PERCENT AUTO 0 % (0-1); LYMPHOCYTES ABSOLUTE AUTO 2.79 K/mm3 (0.84-5.20); LYMPHOCYTES PERCENT AUTO 37 % (21-46); MONOCYTES ABSOLUTE AUTO 0.62 K/mm3 (0.16-1.47); MONOCYTES PERCENT AUTO 8 % (4-13); Mean Corpuscular HGB 29.3 pg (26.0-34.0); Mean Corpuscular HGB Conc 34.1 g/dL (31.5-36.5); Mean Corpuscular Volume 86 fL (80-100); Mean Platelet Volume 11.1 fL (9.1-12.4); NEUTROPHILS ABSOLUTE AUTO 3.79 K/mm3 (1.96-9.15); NEUTROPHILS PERCENT AUTO 50 % (41-73); Platelet Count 191 K/mm3 (150-400); RDW Coefficient Variation 13.4 % (11.7-14.2); RDW Standard Deviation 41.3 fL (35.1-46.3); Red Blood Cell Count 5.36 M/mm3 (4.30-5.90); White Blood Cell Count 7.59 K/mm3 (4.00-11.30)
[2023-10-19 11:17] LABS: Albumin, Blood 3.7 g/dL (3.4-5.0); Albumin/Globulin Ratio 0.9 (0.8-1.8); Bilirubin, Total 0.2 mg/dL (0.1-1.0); Bun/Creatinine Ratio 24.3 (12.0-20.0); Calcium, Blood 8.6 mg/dL (8.5-10.1); Creatinine, Blood 1.03 mg/dL (0.60-1.20); Globulin, Blood 4.1 g/dL (2.2-4.0); Potassium, Blood 4.7 mmol/L (3.5-5.5); Total Protein, Blood 7.8 g/dL (6.4-8.2)
[2023-10-19] MEDS ORDERED: Mupirocin22 GM TOP (13:28)
== END 2023-10-19 14:28 | disposition home or self-care (01) ==
LOC: ER 09:51
PROVIDERS: Physician Assistant
DX: L03.116 Cellulitis of left lower limb (principal); I10 Essential (primary) hypertension; E11.9 Type 2 diabetes mellitus without complications; F17.200 Nicotine dependence, unspecified, uncomplicated; Z79.4 Long term (current) use of insulin; Z89.512 Acquired absence of left leg below knee
CPT/HCPCS: 73590; 80053; 85025; 99283-25